=== PATIENT | male | born 1970 | race Caucasian/White ===

== ENCOUNTER 2017-05-17 11:52 | Emergency (ER) | payer OTHER ==
[~2017-05-17] VITALS: Ht 190.5 cm; Wt 85.3 kg
[~2017-05-17 11:52] MED LIST: BACTRIM DS TAB1 EACH PO; CLINDAMYCIN HC300 MG PO; DONNATAL E16.2 MG/5 PO; IBUPROFEN400 MG PO; IBUPROFEN600 MG PO; KEFLEX500 MG PO; NORCO 5-325 TA1 EACH PO
== END 2017-05-17 12:21 | disposition home or self-care (01) ==
LOC: ED 11:52
DX: Z00.8 Encounter for other general examination (principal)

== ENCOUNTER 2018-08-30 04:17 | Emergency (ER) | payer OTHER ==
[~2018-08-30] VITALS: Ht 190.5 cm; Wt 85.3 kg
[2018-08-30] MEDS ORDERED: TRAMADOL HCL50 MG PO (06:45)
== END 2018-08-30 06:55 | disposition home or self-care (01) ==
LOC: ED 04:17
DX: K74.60 Unspecified cirrhosis of liver (principal); I10 Essential (primary) hypertension; F17.200 Nicotine dependence, unspecified, uncomplicated
CPT/HCPCS: 74176; 80053; 81001; 85025; 96374; 96375; 99284-25; J1170; J1885; J2405; J7030

== ENCOUNTER 2018-09-10 17:49 | Inpatient (IN) | payer OTHER ==
[~2018-09-10] VITALS: Ht 190.5 cm; Wt 89.7 kg
[~2018-09-10 17:49] MED LIST changes: +TRAMADOL HCL50 MG PO
--- OUTSIDE RECORDS SUMMARY | 2018-09-10 17:52 | XMS ---
PreManage Notification: STONE DAVIS Security Contour Stitcher Events No recent Security Events currently on file CRITERIA MET - [facility] - 2 Visits in 30 Days CARE PROVIDERS There are no care providers on record at this time. Lashon has no Care Guidelines for this patient. [place] VISIT COUNT (12 MO.) [address] [facility] TOTAL 2 NOTE: Visits indicate total known visits. ED/C VISIT TRACKING (12 MO.) 09/10/2018 17:[address] [facility] [place] TYPE: Emergency COMPLAINT: - FACE/JAW SWELLING 08/30/2018 04:17 [facility] [place] TYPE: Emergency COMPLAINT: - BACK/FLANK PAIN DIAGNOSES: - Unspecified abdominal pain - Unspecified cirrhosis of liver - Nicotine dependence, unspecified, uncomplicated - Essential (primary) hypertension INPATIENT VISIT TRACKING (12 MO.) No inpatient visits to display in this time frame [email or web address]
--- NOTE | 2018-09-10 21:45 | NUR ---
PT ARRIVED VIA STRETCHER FROM ED. RR IS EVEN AND NONLABORED. RT SIDE OF FACE IS VISABLY SWOLLEN, HE DENIES TROUBLE BREATHING. HE IS TUCKED IN AND READY FOR A SANDWICH. CALL LIGHT IS CLOSE.
--- NOTE | 2018-09-10 22:49 | NUR ---
PT JUST FINISHED A SANDWICH AND DENIES NEEDS AT THIS TIME. HE WILL CALL WHEN HE NEEDS PAIN MEDS. CALL LIGHT IS CLOSE.
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
--- NOTE | 2018-09-11 00:27 | NUR ---
PT RESTING IN BED WATCHING TV, PT STATES THAT PREVIOUS PRN PAIN MEDICATION HAS HELPED WITH HIS PAIN, RATED 3/10, NO REQUESTS AT THIS TIME, IV FLUIDS/ABX INFUSING PER EMAR WNL, CALL LIGHT WITHIN REACH, FALL PRECAUTIONS IN PLACE.
--- NOTE | 2018-09-11 01:08 | NUR ---
PT RESTING IN BED, EYES CLOSED, BREATHS EVEN, UNLABORED, NO REQUESTS AT THIS TIME, IV FLUIDS INFUSING PER EMAR WNL, CALL LIGHT WITHIN REACH, FALL PRECAUTIONS IN PLACE.
--- NOTE | 2018-09-11 02:30 | NUR ---
PT RESTING IN BED, CURRENTLY RATES PAIN AT 3/10, DENIES NEED FOR PRN PAIN MEDICATION, NO REQUESTS AT THIS TIME, IV FLUIDS INFUSING PER EMAR WNL, CALL LIGHT WITHIN REACH.
--- NOTE | 2018-09-11 04:01 | NUR ---
PT RESTING IN BED, EYES CLOSED, BREATHS EVEN, UNLABORED, NO REQUESTS AT THIS TIME. CALL LIGHT WITHIN REACH. IV FLUIDS INFUSING PER EMAR WNL.
--- NOTE | 2018-09-11 05:25 | NUR ---
PT CONTINUES TO C/O 8/10 PAIN IN HIS RIGHT FACE, PT GIVEN 1MG PRN MORPHINE PER EMAR, WAS NOT ABLE TO DOCUMENT/SCAN DUE TO GENERATOR TEST, 2 RN VERIFICATION WITH STORES ASSISTANT LOLIS. PT TOLERATED WELL, WILL CONTINUE TO ASSESS.
--- NOTE | 2018-09-11 06:26 | NUR ---
PT RESTING IN BED, COLD COMPRESS PROVIDED, IV ABX/FLUIDS INFUSING PER EMAR, CALL LIGHT WITHIN REACH. FALL PRECAUTIONS IN PLACE.
--- NOTE | 2018-09-11 07:15 | NUR ---
BEDSIDE HANDOFF REPORT RECEIVED FROM SENIOR COST ESTIMATOR RN. PT RESTING IN BED. PT DENIES NEEDS AT THIS TIME.
--- NOTE | 2018-09-11 07:31 | NUR ---
PATIENT RESTING IN BED. PATIENT'S BREAKFAST ORDERED
--- NOTE | 2018-09-11 08:00 | NUR ---
PT RESTING IN BED. PT RATING PAIN 8/10 TO RIGHT FACE, FACE SWOLLEN AND REDDENED, PT PROVIDED 1 MG IV MOROPHINE AND 10 MG PO OXYCODONE, DISCUSSED PAIN MANAGEMENT WITH PT, PROVIDED WITH ICE PACK. IV VANCO INFUSING. PT ON ROOM AIR, LUNG SOUNDS CLEAR, DENIES SOB. PT COMPLAINT OF NUMBNESS TO FINGERS, HAS BEEDN PRESENT FOR SEVERAL DAYS. PT WITHOUT EDEMA. BOWEL TONES ACTIVE, TOLERATING REGULAR DIET, DISCUSSED FOOD CHOICES IF HE FEELS IT IS DIFFICULT TO SWALLOW. DISCUSSED PLAN OF CARE WITH PT. PT DENIES OTHER NEEDS AT THIS TIME. MD TO BEDSIDE.
--- NOTE | 2018-09-11 10:30 | NUR ---
PATIENT IN BATHROOM TAKING A SHOWER. LINENS CHANGED. PATIENT BACKS TO BED. VITAL SIGNS AND I&O DONE. CALL LIGHT WITHIN REACH. NO OTHER NEEDS AT THIS TIME
--- NOTE | 2018-09-11 11:20 | NUR ---
SPOKE WITH HARPREET FROM [employer]. SHE STATES PATIENT NOW HAS OHP INSURANCE. SPOKE WITH PATIENT IN ROOM. GAVE HIM HIS OHP POLICY NUMBER TO USE FOR PHARMACY OR APPOINTMENTS. PATIENT DENIES BARRIERS TO RETURNING HOME AT DISCHARGE. PATIENT DENIES QUESTIONS OR CONCERNS.
--- NOTE | 2018-09-11 12:32 | NUR ---
PT LAYING IN BED, TV OFF, RM QUIET. HE WELCOMED ME AND LET ME KNOW HE WAS PRETTY UNCOMFORTABLE. CELLULITIS VERY PROMINATE IN HIS RIGHT SIDE OF HIS FACE. PAIN IS BETTER NOW. PT REQUESTED PRAYER, WILL FOLLOW NEEDED
--- NOTE | 2018-09-11 13:10 | NUR ---
PT RESTING IN BED. PT RATING PAIN 8/10, REQUESTING PAIN MEDICATION, PROVIDED WITH SCHEDULED MOTRIN AND 10 MG OXYCODODNE. PT ON ROOM AIR, LUNG SOUNDS CLEAR. PT TOLERATING DIET, DENIES DIFFICULTY WITH SWALLOWING FOOD/LIQUIDS. NO ACUTE CHANGES. PT DENIES OTHER NEEDS AT THIS TIME.
--- NOTE | 2018-09-11 13:13 | NUR ---
PATIENT RESTING IN BED. VITAL SIGNS AND I&O DONE. CALL LIGHT WITHIN REACH. ICE WATER GIVEN. NO OTHER NEEDS AT THIS TIME
--- NOTE | 2018-09-11 15:36 | NUR ---
PT RATING PAIN 5/10, IMPROVING, SCHEDULED TYLENOL GIVEN. PT DENIES NEEDS AT THIS TIME.
--- NOTE | 2018-09-11 16:14 | NUR ---
PT REPORT OF FEELING COLD, PROVIDED WITH WARM BLANKET, ORAL TEMP 98.9. IV VANCO INFUSING PER ORDER. PT DENIES OTHER NEEDS. PT RATING PAIN 5/10, PLAN FOR PAIN REASSESSMENT AND PAIN MEDICATIONS AT 1700.
--- NOTE | 2018-09-11 17:19 | NUR ---
PATIENT SITTING UP IN BED TAKING DINNER. VITAL SIGNS AND I&O DONE. ICE WATER GIVEN. CALL LIGHT WITHIN REACH. NO OTHER NEEDS AT THIS TIME
--- NOTE | 2018-09-11 17:30 | NUR ---
PT REQUESTING PAIN MEDICATION, RATING PAIN 7/10, GIVEN 10 MG OXYCODONE. PT INDEPENDENT TO BATHROOM. VOIDING QS. PT DENIES OTHER NEEDS AT THIS TIME.
--- NOTE | 2018-09-11 17:53 | NUR ---
PT CONTINUES TO HAVE PAIN TO RIGHT SIDE OF FACE AND NECK, 10 MG OXYCODONE, TYLENOL, MOTRIN ADDED. SWELLING APPEARS TO BE IMPROVING. PT ON ROOM AIR, LUNG SOUNDS CLEAR. TOLERATING REGULAR DIET, ENCOURAGED TO ORDER SOFT FOODS IF CHEWING/SWALLOWING IS DIFFICULT, TOLERATING PO WELL. PT INDEPENDENT IN ROOM. IV VANCO AND CEFEPIME, LR AT 125ML/HR. VOIDING QS. MRSA SCREEN PENDING, R/O CONTACT PRECAUTIONS.
--- NOTE | 2018-09-11 19:45 | NUR ---
REPORT RECEIVED, PT RESTING IN BED, C/O 8/10 PAIN RELATED TO RIGHT FACE, DAY SHIFT RN STATES THAT THE PT RECENTLY RECEIVED PRN PAIN MEDICATION 2 HOURS AGO, ICE PACK SUPPLIED TO PT. DR. MARTINEZ CALLED CONCERNING PT'S PAIN MANAGEMENT, DR. MARTINEZ GAVE VERBAL ORDER TO UTILIZE MORPHINE ORDER FOR BREAK THROUGH PAIN, AND INSTRUCTED TO GIVE MORPHINE NOW. PT GIVEN 2MG MORPHINE RELATED TO PT'S 8 PAIN. TOLERATED WELL. NEW ICE WATER PROVIDED, NO FURTHER REQUESTS AT THIS TIME, CALL LIGHT WITHIN REACH.
--- NOTE | 2018-09-11 20:45 | NUR ---
DR. MARTINEZ IN ROOM TO SPEAK WITH PT, VERBAL ORDER RECEIVED FROM DR. MARTINEZ TO SALINE LOCK THE PT AND DC CONTINUOUS IV FLUIDS DUE TO PT'S GOOD ORAL INTAKE. NO FURTHER NEW ORDERS.
--- NOTE | 2018-09-11 21:54 | NUR ---
IN ROOM TO ADMIN EVENING MEDS, SHIFT ASSESSMENT COMPLETE, PT ON RA, PT CONTINUES TO C/O THROBBING IN RIGHT SIDE OF FACE, SWELLING NOTICED, LOOKS REDUCED FROM PREVIOUS NIGHT WELL REDUCED REDNESS. PT GIVEN PRN PAIN MEDICATION PER EMAR WNL, TOLERATED WELL, EDUCATION PROVIDED REGARDING PAIN MANAGEMENT AND MEDICATIONS, PT AGREEABLE TO POC, PUDDING AND CHELSEY CRACKERS PROVIDED PER PT'S REQUEST, NO FURTHER REQUESTS AT THIS TIME, IV SL, FALL PRECAUTIONS IN PLACE. CALL LIGHT WITHIN REACH.
--- NOTE | 2018-09-12 | NUR ---
PT RESTING IN BED, EYES CLOSED, BREATHS EVEN, NO REQUESTS AT THIS TIME, CALL LIGHT WITHIN REACH.
--- NOTE | 2018-09-12 02:09 | NUR ---
PT RESTING IN BED, PT GIVEN PRN PAIN MEDICATION FOR 5/10 PAIN RELATED TO RIGHT SIDE OF FACE, PT HAS COLD COMPRESS ON FACE WELL, NO C/O NAUSEA, NO FURTHER REQUESTS AT THIS TIME, CALL LIGHT WITHIN REACH, FALL PRECAUTIONS IN PLACE. IV ABX FINISHED INFUSING, IV SL.
--- NOTE | 2018-09-12 04:03 | NUR ---
PT RESTING IN BED, EYES CLOSED, BREATHS EVEN, UNLABORED, NO REQUESTS AT THIS TIME, CALL LIGHT WITHIN REACH. ON TELE #4, HR 70'S.
--- NOTE | 2018-09-12 04:46 | NUR ---
PT AOX4 THIS SHIFT, PAIN CONTROL HAS BEEN GOOD THIS SHIFT, PT'S PAIN 3-5, PRN OXYCODONE GIVEN X2 THIS SHIFT, PRN MORPHINE FOR BREAK THROUGH PAIN PER DR. MARTINEZ. IV SL, TOLERATING PO INTAKE WELL, COLD COMPRESS TO REDUCE SWELLING, SCHEDULED IBUPROFEN AND TYLENOL GIVEN PER EMAR, PT'S VSS, AFEBRILE, INDEPENDENT IN ROOM, URINE OUTPUT QS.
--- NOTE | 2018-09-12 06:34 | NUR ---
IN ROOM TO ADMIN SCHEDULED MEDS, PT C/O 11/04 PAIN RELATED TO RIGHT SIDE OF FACE, PT GIVEN 5MG OXYCODONE FOR PRN PAIN, PT EDUCATED REGARDING PAIN MANAGMENT, NO FURTHER REQUESTS AT THIS TIME, CALL LIGHT WITHIN REACH.
--- NOTE | 2018-09-12 06:55 | NUR ---
BEDSIDE HANDOFF REPORT RECEIVED FROM TUBE CLOSING MACHINE OPERATOR RN. PT RESTING IN BED. PT STATES PAIN IS OK. PT DENIES NEEDS AT THIS TIME.
--- NOTE | 2018-09-12 08:30 | NUR ---
PT RESTING IN BED. PT RATING PAIN 7/10 AT THIS TIME, DISCUSSED PAIN MANAGEMENT, PT REQUESTING TO WAIT UNTIL 1000 FOR 10 MG OXYCODONE. IV VANCO INFUSING TO R AC. SWELLING TO RIGHT FACE IMPROVED AROUND EYE, RIGHT LIP WITH OPEN CRUSTED WOUND, PT STATES IT IS DRAINING. PT CONTINUES TO REPORT NUMBNESS IN FINGERTIPS. CMS INTACT. PULSES PALPABLE. PT TOLERATING DIET. PT DENIES OTHER NEEDS AT THIS TIME.
--- NOTE | 2018-09-12 09:59 | NUR ---
PT RATING PAIN 6/10, GIVEN 10 MG OXYCODONE. PT DENIES OTHER NEEDS AT THIS TIME.
--- NOTE | 2018-09-12 14:15 | NUR ---
PT RESTING IN BED. NO ACUTE CHANGES. IV VANCO INFUSING. PT GIVEN 5 MG PO OXYCODONE, TYLENOL AND MOTRIN, PT RATING PAIN 5/10. PT DENIES OTHER NEEDS AT THIS TIME.
--- NOTE | 2018-09-12 17:56 | NUR ---
PT ON ROOM AIR, LUNG SOUNDS CLEAR. PLAN FOR I&D OF FACIAL ABCESS TOMORROW, NPO AT MIDNIGHT, CONSENT SIGNED AND IN CHART. PT INDEPENDENT IN ROOM. VANCO TROUGH 19.3, DOSE ADJUSTED, ANCEF, SALINE LOCKED. PT TOLERATING REG DIET. CONTACT FOR MRSA.
--- NOTE | 2018-09-12 18:34 | NUR ---
PT RATING PAIN 7/10, REQUESTING 10 MG OXYCODONE, GIVEN. DISCUSSED PLAN FOR SURGERY IN AM. PT DENIES OTHER NEEDS AT THIS TIME.
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
--- NOTE | 2018-09-12 19:05 | NUR ---
SHIFT REPORT RECEIVED AT BEDSIDE. PATIENT RESTING IN BED. APPLYING ICE TO RIGHT SIDE OF THE FACE. DENIES NEEDS AT THIS TIME.
--- NOTE | 2018-09-12 21:00 | NUR ---
PATIENT PROVIDED WITH EVENING MEDICATION. PATIENT REPORTS HIS PAIN MEDS "FINE", SCHEDULED TYLENOL AND MOTRIN PROVIDED. IV VANCO STARTED PER ORDER. THERE IS MINIMAL DRAINAGE FROM THE SWELLING ON THE RIGHT SIDE OF HIS FACE. PATIENT DENIES ANY NAUSEA. LUNGS ARE CLEAR. ABD SIFT, NONTENDER. PATIENT WOULD LIKE TO SHOWER FOLLOWING THIS, WHICH THE POLYSOMNOGRAPHIC TECH WILL ASSIST WITH.
--- NOTE | 2018-09-12 22:15 | NUR ---
OPERATIONS SPECIALIST ROUNDING NOTE. PT ABX FINISHED, PT SL SO THAT HE CAN TAKE SHOWER PER REQUEST. IV COVERED. PT DENIES FURTHER NEEDS. ALL SUPPLIES FOR SHOWER READY FOR PT USE IN BATHROOM. ENCOURAGED PT USE CALL LIGHT IF NEEDS ARISE.
--- NOTE | 2018-09-12 23:45 | NUR ---
PRN PAIN MEDS PROVIDED FOR 8/10 PAIN. PATIENT FINISHED HIS WATER, IS NO NPO FOR PROCEDURE. NO OTHER NEEDS AT THIS TIME.
--- NOTE | 2018-09-13 02:00 | NUR ---
PATIENT COMPLAINS OF PAIN IN IV SITE IN RIGHT AC. SITE IS RED BUT NOT SWOLLEN AND HAS GOOD BLOOD RETURN. NEW IV SITE PLACED BY MELQUIADES ALBERTS. IV ABX STARTED. PRN PAIN MEDS FOR 8/10 PAIN IN RIGHT SIDE OF FACE. MODERATE AMOUNT OF DRAINAGE NOTED. PATIENT HAS COLD COMPRESS.
--- NOTE | 2018-09-13 04:46 | NUR ---
PATIENT TOOK SHOWER. BED LINEN CHANGED.
--- NOTE | 2018-09-13 06:20 | NUR ---
PATIENT RECEIVED IV ABX THROUGHOUT THE NIGHT. PRN PAIN MEDS FOR RIGHT SIDE FACE PAIN. NPO SINCE MIDNIGHT FOR PROCEDURE THIS AM. SMALL TO MODERATE DRAINAGE FROM AREA, PATIENT HAS BEEN WIPING IT WITH A WASH CLOTH. IV SL. INDEPENDENT IN THE ROOM.
--- NOTE | 2018-09-13 07:42 | NUR ---
MORNING ASSESSMENT DONE, PATIENT IS RESTING IN BED. LR ON STRAIGHT TUBING AT BEDSIDE. PATIENT RATES RIGHT FACIAL PAIN 3/10 AND IS COMFORTABLE AT THIS TIME. PATIENT NPO FOR SURGERY. NO NAUSEA NOTED. CRUSTING NOTED AT RIGHT CORNER OF MOUTH, DRAINAGE NOT NOTED BUT PATIENT REPORTS OCCASIONAL DRAINAGE FROM THIS SITE. SCD'S ARE ON FOR SURGERY.
--- NOTE | 2018-09-13 07:48 | NUR ---
LR INFUSING AT 75 ML/HOUR DUE TO PATIENT BEING NPO. REVIEWED THIS WITH DR. ANNE. CALL TO PHARMACY REGARDING 0800 VANCO, AND THEY ARE AWAITING VANCO TROUGH RESULTS.
--- NOTE | 2018-09-13 08:05 | NUR ---
patient is NPO, checked on patient, he performed his own am care, will check back in with patient
--- NOTE | 2018-09-13 09:04 | NUR ---
PATIENT TO SURGERY AT 0860
--- NOTE | 2018-09-13 09:44 | NUR ---
09/13/18 0944 Vanessa Edwards 0925: PT ARRIVES TO PACU SLEEPY, RESPONDING TO STIMULI, BUT WON'T OPEN HIS EYES YET.
--- NOTE | 2018-09-13 10:18 | NUR ---
PATIENT RETURNED FROM SURGERY AT 1005, ABLE TO TRANSFER SELF TO BED. DRESSING INTACT TO RIGHT SIDE OF MOUTH WITH SEROUS DRAINAGE. LOCAL ANESTHETIC IN EFFECT. PATIENT RATES OVERALL DISCOMFORT 8/10 AND GIVEN 2MG OF IV MORPHINE. PATIENT IS SIPPING ON ICE WATER.
--- NOTE | 2018-09-13 12:02 | NUR ---
PATIENT SLEEPING WITH REGULAR RESPIRATIONS. PATIENT WAS ABLE TO EAT A LATE BREAKFAST AND LUNCH.
--- NOTE | 2018-09-13 13:11 | NUR ---
PATIENT UP TO VOID, IS SALINE LOCKED. CALL TO DR. ANNE REGNICHOLASING SATURATED DRESSING. OUTER DRESSING REMOVED, PACKING LEFT IN PLACE, DR. MARTINEZ IN TO VISULIZE SURGICAL SITE. PLAN TO REPLACE OUTER GUAZE AND TAPE. PATIENT REPORTS PAIN IN 6/10 AND FEELS THAT ORDERED PAIN MEDICATIONS ARE ADEQUATE.
--- NOTE | 2018-09-13 15:06 | NUR ---
PATIENT GIVEN 1000MG OF TYLENOL AND 10MG OF OXYCODONE FOR 6/10 PAIN. APPETITE IS EXCELLENT. GUAZE DRESSING REAPPLIED TO RIGHT FACE.
--- NOTE | 2018-09-13 15:21 | NUR ---
PATIENT HAS HAD SURGERY TODAY, OFF FLOOR FOR ONE HOUR AND THEN RETURNED. APPETITE IS GOOD, NO NAUSEA. PAIN IS CONTROLLED WITH IV AND PO MEDS. RIGHT LIP INCISION HAS PACKING, COVERED WITH NON-STICK GUAZE AND LOOSLY TAPED TO CHEEK. PATIENT CONTINUES TO BE STANDBY ASSIST TO BATHROOM.
--- NOTE | 2018-09-13 17:11 | NUR ---
PATIENT IS SLEEPING WITH REGULAR RESPIRATIONS.
--- NOTE | 2018-09-13 19:12 | NUR ---
CHARGE NURSE REPORT RECEIVED FROM DAVID. PT IN BED, PT DAY PRIMARY NURSE IN ROOM, ADDRESSING THE DRESSING ON LEFT FACE.
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
--- NOTE | 2018-09-13 19:20 | NUR ---
SHIFT REPORT RECEIVED AT BEDSIDE. PATIENT RECEIVED PRN PAIN MEDS AT THIS TIME FROM DAYSHIFT RN. WOUND PACKING IN PLACE, SMALL AMOUNT OF DRAINAGE NOTED. PATIENT REQUESTING IV IN RIGHT AC BE REMOVED, THIS IS HIS SECOND IV SITE. WILL REMOVE UPON ASSESSMENT.
--- NOTE | 2018-09-13 22:30 | NUR ---
PATIENT REPORTS DIFFICULTY RESTING DUE TO 9/[address] MARTINEZ[address] RECEIVED ORDERS FOR BREAK THROUGH PAIN MEDICATION AND VERIFIED VIA REPEAT BACK METHOD. PROVIDED PRN MORPHINE TO PATIENT, WHO APPEARS RESTLESS AND HAS BEEN UNABLE TO REST. PATIENT HAS BEEN APPLYING ICE TO AFFECTED AREA.
--- NOTE | 2018-09-13 23:02 | NUR ---
V/S AND I&O DONE AND CHARTED. ICE PACK PROVIDED.
--- NOTE | 2018-09-13 23:50 | NUR ---
PRN OXY PROVIDED FOR 8/10 PAIN. PATIENT REPORTS PAIN IS CONSTANT AND THROBBING. ICE PACK APPLIED TO AREA, MODERATE AMOUNT OF DRAINAGE NOTED. PATIENT REPORTS ITCHING ON HIS ARMS AND ANKLES. HIVES/RASH APPEAR UNCHANGED FROM PREVIOUS OBSERVATION. BENADRYL CREAM NOT AVAILABLE UNTIL PHARMACY ARRIVES IN THE AM.
--- NOTE | 2018-09-14 00:33 | NUR ---
PATIENT APPEARS TO BE SLEEPING SOUNDLY AT THIS TIME. RR 18. CALL LIGHT IN HAND.
--- NOTE | 2018-09-14 03:30 | NUR ---
PATIENT APPEARS TO BE SLEEPING SOUNDLY. RR 16. CALL LIGHT IN REACH
--- NOTE | 2018-09-14 05:15 | NUR ---
PRN OXY PROVIDED FOR PAIN 04/06. PATIENT CONTINUES TO ITCH, MOSTLY ON HIS BACK. PRN BENADRYL GIVEN. WILL RETURN TO REMOVE PACKING AND SET UP FOR SHOWER ONCE MEDS HAVE TAKEN EFFECTS.
--- NOTE | 2018-09-14 06:00 | NUR ---
PACKING REMOVED WITHOUT CONCERN. PATIENT TOLERATED WELL. PATIENT WILL NOW SHOWER AND CALL WHEN HE IS DONE FOR FURTHER ASSESSMENT.
--- NOTE | 2018-09-14 06:43 | NUR ---
PATIENT HAS A FULL BODY RASH, POSSIBLY FROM THE ABX. MD NOTIFED AND PATIENT NOW ON ORAL ABX. PRN BENADRYL. PATIENT CONTINUES TO BE ITCHY. PRN OXY X3 AND MORPHINE X1 FOR BREAK THROUGH PAIN. ICE TO AFFECTED AREA. PACKING REMOVED PER ORDER, PATIENT SHOWERED THIS AM. TOLERATING REGULAR DIET. INDEPENDENT IN ROOM.
--- NOTE | 2018-09-14 06:58 | OR ---
[facility] [address] [place], [place] [address] Signed DATE OF OPERATION: 09/13/2018 SURGEON: Mary Perez MD PREOPERATIVE DIAGNOSES: 1. Right facial abscess. 2. Cracked right lateral upper lip. POSTOPERATIVE DIAGNOSES: 1. Right facial abscess. 2. Cracked right lateral upper lip. PROCEDURE: 1. Incision and drainage right facial abscess. 2. Deep wound cultures. ESTIMATED BLOOD LOSS: None. FINDINGS: Stone's right lateral upper lip is cracked and pus was coming through that area and he has a 3 cm area of induration and swelling on his right face at the corner and upper portion of his right upper lip. INDICATIONS: Stone is a 47-year-old gentleman, who apparently is unemployed and most likely homeless. He sounds like he spent some time living with his brother, Azar. Three days prior to come to the hospital, he had increased right facial swelling. Apparently, he went through this previously and that responded to antibiotics. On this occasion, he was on Ancef and vancomycin. 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 He had some improvement. It was pretty clear, though he had a 3 cm area, it was quite swollen, indurated and tender that was not resolving and there was some pus coming through a crack on his right upper lateral lip. I was therefore asked to see him as a general surgeon on-call. I met with Stone yesterday, but he unfortunate ate already breakfast. I explained to Stone we would go ahead and do this 1st thing in the morning. We could make an incision along the vermilion border and into the abscess cavity and evacuate that and pack that with some gauze and that would help resolve this abscess along with his Ancef and vancomycin. I had reviewed the surgery with him in detail. He understands its risks including, but not limited to bleeding, infection, scarring, change in contour of the skin as well as recurrent abscess in the same or Portions of this report were created using voice recognition software. There may be inadvertent computer error. Please read with context in mind. If there are any questions, please contact me. Electronically Signed By: MARY PEREZ MD 09/14/18 0658 PATIENT NAME: STONE DAVIS OPERATIVE REPORT DATE OF : 72 REPORT #: [id number] PHYSICIAN: MARY PEREZ MD PCP: NO PRIMARY CARE PHYSICIAN REPORT IS CONFIDENTIAL AND NOT TO BE RELEASED WITHOUT AUTHORIZATION [facility] [address] [place], [place] [address] Signed other locations. He had expressed understanding wished to proceed. PROCEDURE NOTE: Stone was taken into the operating room and placed in the supine position under general endotracheal tube anesthesia. It was very clear the abscess cavity and swelling on his right face. He was already on preoperative antibiotics. SCDs were utilized. He was then prepped and draped in the usual sterile fashion. We had used our clippers to cut back the hair just a little bit on the right lateral upper lip. We could easily express some pus through an opening in his lip. We used the cautery to compute the vermilion border about a centimeter in length and we were able to enter the abscess cavity quite easily. Deep cultures were taken and after this, the wound was copiously irrigated with warm antibiotic saline solution. Local anesthetic was then injected into the subcutaneous tissues without epinephrine. We then used one-half inch NuGauze soaked in full strength Dakin's solution. This was then covered with a simple 2 x 2 dry gauze and some tape. Osmar was then awakened from his anesthesia, extubated in the OR, and taken to recovery room in stable condition. Mary Perez MD ALB/MODL /[id number] cc: Mary Perez MD Copies: MARY PEREZ MD ~ Portions of this report were created using voice recognition software. There may be inadvertent computer error. Please read with context in mind. If there are any questions, please contact me. Electronically Signed By: MARY PEREZ MD 09/14/18 0658 PATIENT NAME: STONE DAVIS OPERATIVE REPORT DATE OF : 72 REPORT #: [id number] PHYSICIAN: MARY PEREZ MD PCP: NO PRIMARY CARE PHYSICIAN REPORT IS CONFIDENTIAL AND NOT TO BE RELEASED WITHOUT AUTHORIZATION
--- NOTE | 2018-09-14 07:54 | NUR ---
RECIEVED BEDSIDE REPORT FROM ARISTEO NOLAN. PT AWAKE AND ALERT IN BED. PT HAS CANISTER OF ICE WATER ON TABLE FOR COLD COMPRESS TO FACE, WHICH IS EFFECTIVE. WOUND UNCOVERED D/T PLACEMENT OF WOUND. PT IS HUNGRY, BREAKFAST IS ENROUTE. PT HAS RED RASH ON BODY, PT STATES IT IS NOT ITCHY AT THIS TIME.
--- NOTE | 2018-09-14 08:45 | NUR ---
PT GIVEN MORNING MEDS AND NEW ICE WATER. PT FINISHING BREAKFAST. STATES HE HAD HIS SHOWER ALREADY. TAPED SMALL SQUARE OF GAUZE TO SITE. PT DENIES FURTHER CONCERNS. WOUND STILL DRAINING SMALL AMT LIGHT RED
--- NOTE | 2018-09-14 09:31 | NUR ---
PATIENT IN BED WATCHING TV. VITAL SIGNS AND I&O DONE. CALL LIGHT WITHIN REACH. NO OTHER NEEDS AT THIS TIME
--- NOTE | 2018-09-14 10:48 | NUR ---
CALLED DOWN AND ORDERED LUNCH FOR PT. ADMINISTERED PRN PAIN MEDICATIONS FOR 8\10 PAIN
--- NOTE | 2018-09-14 12:31 | NUR ---
PT WAS SITTING UP IN BED, WATCHING TV. HE HAD A SMALL GAUZE PAD ON R. SIDE OF LIP. PT STATED THAT LIP HAD BEEN LANCED AND DRAINED YESTERDAY. FEELING BETTER BUT STILL FEELING A NEED TO NAP. HE STATED THIS, PT'S EYES ROLLED TO THE BACK OF HIS HEAD. WILL SHARE WITH RN. WILL CONTINUE TO FOLLOW NEEDED
--- NOTE | 2018-09-14 12:38 | NUR ---
PT RESTING IN BED. DENIES CONCERNS.
--- NOTE | 2018-09-14 13:10 | NUR ---
PATIENT RESTING IN BED. VITAL SIGNS AND I&O DONE. PATIENT IS WORRIED BECAUSE HE HAS A RASH IN HIS ARMS, CHEST AND STOMACH AND FEELS ITCHY. RN NOTIFIED. CALL LIGHT WITHIN REACH. NO OTHER NEEDS AT THIS TIME
--- NOTE | 2018-09-14 15:20 | NUR ---
PT RESTING IN BD AND HAD TO BE AWOKEN FOR PAIN MEDICATIONS. REFILLED WATER CUP. CHANGED GAUZE ON WOUND AGAIN. SATURATED WITH PINK DRAINAGE.
--- NOTE | 2018-09-14 17:46 | NUR ---
PT FINISHING DINNNER WATCHING TV. PT RATES PAIN 02/03. GIVEN SCHEDULED MED. REFILLED WATER. DENIES CONCERNS.
--- NOTE | 2018-09-14 18:09 | NUR ---
PATIENT SITTING UP IN BED WATCHING TV. VITAL SIGNS AND I&O DONE. CALL LIGHT WITHIN REACH. NO OTHER NEEDS AT THIS TIME
--- NOTE | 2018-09-14 19:00 | NUR ---
CHARGE ROUNDING DONE. OBSERVED PATIENT'S RASH WHICH HE REPORTS WORSE THAN PREVIOUS. WILL SPEAK WITH PRIMARY RN. PATIENT DENIED NEEDS AT THIS TIME.
--- NOTE | 2018-09-14 20:15 | NUR ---
IN TO DO ASSESSMENT. PT C/O PAIN 8/10 IN RIGHT UPPER LIP, WILL GIVE PAIN MED. GAUZE ON LIP, FRESHLY APPLIED, NO DRAINAGE AT THIS TIME. PT REQUESTS SNACK, PROVIDED. RASH ALL OVER BODY NOTED, BENADRYL CREAM APPLIED.
--- NOTE | 2018-09-14 21:45 | NUR ---
PT AWAKE IN BED WATCHING TV, DENIES NEEDS, PAIN DOWN TO 5/10.
--- NOTE | 2018-09-15 | NUR ---
PT RESTING WITH EYES CLOSED, RESP EVEN AND UNLABORED.
--- NOTE | 2018-09-15 02:14 | NUR ---
IN TO CHECK ON PT, HE WAKES EASILY AND RATES PAIN 7/10 IN RIGHT LIP AREA. GAUZE CHANGED, OXYCODONE 15MG GIVEN. NO OTHER REQUESTS, VSS.
--- NOTE | 2018-09-15 04:00 | NUR ---
PT APPEARS RESTFUL, RESP EVEN AND UNLABORED EYES CLOSED.
--- NOTE | 2018-09-15 06:15 | NUR ---
PT AWAKE IN BED. GAUZE DRESSING CHANGED, SLIGHTLY SAT WITH DRAINAGE. BREAKFAST ORDERED, DENIES FURTHER NEEDS.
--- NOTE | 2018-09-15 07:40 | NUR ---
PATIENT SITTING UP IN BED. SETS UP BATHROOM FOR SHOWER. PATIENT TAKES A SHOWER. INDEPENDENT. PATIENT BACKS TO BED. CALL LIGHT WITHIN REACH. NO OTHER NEEDS AT THIS TIME
--- NOTE | 2018-09-15 08:33 | NUR ---
PT RESTING IN BED EATING BREAKFAST. HE STATES HIS FACE AND LIP HAVE PAIN RATED AT A 7 AND HE DENIES ANY OTHER PROBLMES.
--- NOTE | 2018-09-15 09:26 | NUR ---
PATIENT SITTING UP IN BED WATCHING TV. VITAL SIGNS AND I&O DONE. CALL LIGHT WITHIN REACH. NO OTHER NEEDS AT THIS TIME
[2018-09-15] MEDS ORDERED: DOXYCYCLINE HY100 MG PO (09:57)
[2018-09-15] MEDS ORDERED: OXYCODONE HCL10 MG PO (09:58)
[2018-09-15] MEDS ORDERED: DICLOFENAC POTA50 MG PO (09:59)
[2018-09-15] MEDS ORDERED: SENNA8.6 MG PO (10:00)
[2018-09-15] MEDS ORDERED: ACETAMINOPHEN500 MG PO (10:02)
--- NOTE | 2018-09-15 11:11 | NUR ---
PT SITTING UP IN BED, TV ON AND ENVELOPE STUFFER KALANI IN DOING VS. SWELLING DOWN CONSIDERABLY, PT SAID IT IS SOMETIMES HARD TO CHEW. WE JOKED ABOUT JUST HAVING ICE CREAM! PT MAY DC TODAY, EXTENDED A BLESSING, WILL FOLLOW NEEDED
--- NOTE | 2018-09-15 11:56 | NUR ---
DISCHARGE INSTRUCTIONS GIVEN TO THE PT WITH GOOD UNDERSTANDING STATED. INSTUCTIONS INCLUDE FOLLOW UP APPOINTMENTS WITH TREVOR FR[facility]ER[facility] AND DR ANNE. S/S OF WHEN TO CALL HIS MD AND INFROMATION ON HIS MEDICATIONS GIVEN. IV IN HIS LEFT FA DC'D WITH THE TIP INTACT. PT STATES HE IS TAKING A TAXI HOME AND IS NOW AWAITING THAT RIDE.
== END 2018-09-15 12:10 | disposition home or self-care (01) | DRG 854 ==
LOC: ED 17:49 → MS 21:20
PROVIDERS: Colon & Rectal Surgery; ADMIT Student in an Organized Health Care Education/Training Program
PROC: 0J910ZZ Drainage of Face Subcutaneous Tissue and Fascia, Open Approach (ICD-10-PCS; principal; 2018-09-13 09:00)
DX: A41.02 Sepsis due to Methicillin resistant Staphylococcus aureus (principal); L03.211 Cellulitis of face; L02.01 Cutaneous abscess of face; F17.210 Nicotine dependence, cigarettes, uncomplicated; L27.0 Generalized skin eruption due to drugs and medicaments taken internally; T36.1X5A Adverse effect of cephalosporins and other beta-lactam antibiotics, initial encounter; Y92.239 Unspecified place in hospital as the place of occurrence of the external cause; Z86.19 Personal history of other infectious and parasitic diseases
CPT/HCPCS: 00300; 36415; 70487; 71046; 80048; 80053; 80202; 83605; 83735; 84100; 85025; 86060; 87040; 87070; 87075; 87077; 87186; 87205; 87502; 99284-25; 99406; J0330; J0690; J1885; J2270; J2405; J2704; J2765; J3010; J3370; J7030; J7120; Q9967

== ENCOUNTER 2019-04-28 01:37 | Emergency (ER) | payer OTHER ==
[~2019-04-28] VITALS: Ht 190.5 cm; Wt 90.9 kg
--- OUTSIDE RECORDS SUMMARY | ~2019-04-28 | XMS | Clinical Summary ---
Demographics + + + | Address | [address] | | | [place] [address] | + + + | Home Phone | | + + + | Preferred Language | Unknown | + + + | Marital Status | Single | + + + | Cheondoism Affiliation | Unknown | + + + | Race | Unknown | + + + | Ethnic Group | Unknown | + + + Author + + + | Author | [facility] | | | and [place] | + + + | Organization | [facility] | | | and [place] | + + + | Address | Unknown | + + + | Phone | Unavailable | + + + Care Team Providers + +------+ + | Care Tool Liaison Name | Role | Phone | + +------+ + | Melissa Bergman RN | PCP | Unavailable | + +------+ + Allergies No Known Allergies Medications + + + +---------+------+------+-------+ | Medication | Sig | Dispensed | Refills | Star | End | Statu | | | | | | t | Date | s | | | | | | Date | | | + + + +---------+------+------+-------+ | sodium | Take 177 mLs by | 1 kit | 0 | 09/0 | | Activ | | sulfate-potassium | mouth every 12 | | | 02/13 | | e | | sulfate-magnesium | hours. Drink one | | | 16 | | | | sulfate (SUPREP | bottle at 4PM day | | | | | | | BOWEL PREP) oral | prior to procedure | | | | | | | solution | and 2ND bottle at | | | | | | | | 6AM day of | | | | | | | | procedure. | | | | | | + + + +---------+------+------+-------+ | ondansetron | Take 1 tablet by | 2 | 0 | 09/0 | | Activ | | (ZOFRAN) 4 mg tablet | mouth as needed for | tablet | | 720 | | e | | | Nausea. Begin bowel | | | 16 | | | | | prep, if nausea, | | | | | | | | stop prep, take med | | | | | | | | and restart prep 1 | | | | | | | | hr later. | | | | | | + + + +---------+------+------+-------+ Active Problems + + + | Problem | Noted Date | + + + | Chronic hepatitis C without hepatic coma | 04/04/2016 | + + + | Abdominal pain, left lower quadrant | 04/04/2016 | + + + | Family history of cancer | 04/04/2016 | + + + | Diarrhea | 04/04/2016 | + + + Family History + + +------+ + | Medical History | Relation | Name | Comments | + + +------+ + | Heart attack | Father | | | + + +------+ + | Diabetes, IDDM | Mother | | | + + +------+ + + +------+ + + | Relation | Name | Status | Comments | + +------+ + + | Father | | Alive | | + +------+ + + | Mother | | Alive | | + +------+ + + | Paternal Aunt | | | cancer | | | | (Age | | | | | 64) | | + +------+ + + Social History + +-------+ +--------+------+ | Tobacco Use | Types | Packs/Day | Years | Date | | | | | Used | | + +-------+ +--------+------+ | Current Some Day | | | | | | Smoker | | | | | + +-------+ +--------+------+ + +---+---+---+ | Smokeless Tobacco: | | | | | Never Used | | | | + +---+---+---+ + + | Tobacco Cessation: Ready to Quit: No; Counseling Given: Yes | + + + + +---------+ + | Alcohol Use | Drinks/We | oz/Week | Comments | | | ek | | | + + +---------+ + | Yes | 0 | 0.0 | social | | | Standard | | | | | drinks or | | | | | | | | | | equivalen | | | | | t | | | + + +---------+ + + + + | Sex Assigned at | Date Recorded | | | | + + + | Not on file | | + + + + + + + | Job Start Date | Occupation | Industry | + + + + | Not on file | Not on file | Not on file | + + + + + + + + | Travel History | Travel Start | Travel End | + + + + + + | No recent travel history available. | + + Last Filed Vital Signs + + + + | Vital Sign | Reading | Time Taken | + + + + | Blood Pressure | 140/70 | 04/03/2016899 PDT | + + + + | Pulse | 78 | 04/03/2016899 PDT | + + + + | Temperature | 36.7 C (98 F) | 04/03/2016899 PDT | + + + + | Respiratory Rate | 16 | 04/03/2016899 PDT | + + + + | Oxygen Saturation | 96% | 04/03/2016899 PDT | + + + + | Inhaled Oxygen | - | - | | Concentration | | | + + + + | Weight | 92.5 kg (204 lb) | 04/03/2016899 PDT | + + + + | Height | 190.5 cm (6' 3") | 04/03/2016899 PDT | + + + + | Body Mass Index | 25.5 | 04/03/2016899 PDT | + + + + Plan of Treatment + + + + + | Health Maintenance | Due Date | Last Done | Comments | + + + + + | Vaccine: | | | | | Dtap/Tdap/Td (1 - | 1 | | | | Tdap) | | | | + + + + + | Vaccine: Influenza | | | | | (#1) | 9 | | | + + + + + Results Not on filefrom Last 3 Months Advance Directives Patient has advance care planning documents on file. For more information, please contact:Robi [facility] [place] [address]
--- OUTSIDE RECORDS SUMMARY | ~2019-04-28 | XMS | Clinical Summary ---
Demographics + + + | Address | [address] | | | [place] [address] | + + + | Home Phone | | + + + | Preferred Language | Unknown | + + + | Marital Status | Single | + + + | Bahai Affiliation | Unknown | + + + | Race | Unknown | + + + | Ethnic Group | Unknown | + + + Author + + + | Author | [facility] | | | and [place] | + + + | Organization | [facility] | | | and [place] | + + + | Address | Unknown | + + + | Phone | Unavailable | + + + Care Team Providers + +------+ + | Care Hob Machine Operator Name | Role | Phone | + [...] on file. For more information, please contact:Robi [facility] [place] [address]
[~2019-04-28 01:37] MED LIST changes: +ACETAMINOPHEN500 MG PO; +DICLOFENAC POTA50 MG PO; +DOXYCYCLINE HY100 MG PO; +OXYCODONE HCL10 MG PO; +SENNA8.6 MG PO
[2019-04-28] MEDS ORDERED: CEPHALEXIN500 MG PO (02:27)
[2019-04-28] MEDS ORDERED: NORCO 5-325 TA1 EACH PO (02:27)
[2019-04-28] MEDS ORDERED: BACTRIM DS TAB1 EACH PO (02:27)
== END 2019-04-28 02:41 | disposition home or self-care (01) ==
LOC: ED 01:37
DX: L03.116 Cellulitis of left lower limb (principal); I10 Essential (primary) hypertension; F17.200 Nicotine dependence, unspecified, uncomplicated
CPT/HCPCS: 73590; 90471; 90715; 99283-25

== ENCOUNTER 2020-08-17 19:15 | Emergency (ER) | payer OTHER ==
[~2020-08-17] VITALS: Ht 190.5 cm; Wt 90.7 kg
[~2020-08-17 19:15] MED LIST changes: +CEPHALEXIN500 MG PO
--- OUTSIDE RECORDS SUMMARY | 2020-08-17 19:18 | XMS ---
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 Lashon has no Care Guidelines for this patient. Care History Medical/Surgical 03/27/2020 [facility] CALLED PATIENT AT NUMBER LISTED-PATIENT SISTER ANSWERED THE PHONE AND STATED HER BROTHER (PATIENT) IS NO LONGER IN THE AREA. E.D. VISIT COUNT (12 MO.) 2 [facility] TOTAL 2 NOTE: Visits indicate total known visits. ED/C VISIT TRACKING (12 MO.) 08/17/2020 19:16 [facility] [place] TYPE: Emergency COMPLAINT: - FEVER,WEAKNESS 03/25/2020 23:59 [facility] [place] TYPE: Emergency COMPLAINT: - CHIN PAIN DIAGNOSES: - Essential (primary) hypertension - Other rn long term care (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 - Cutaneous abscess of face - Nicotine dependence, unspecified, uncomplicated INPATIENT VISIT TRACKING (12 MO.) No inpatient visits to display in this time frame [email or web address]
[2020-08-17] MEDS ORDERED: CEPHALEXIN500 MG PO (23:32)
== END 2020-08-18 00:25 | disposition home or self-care (01) ==
LOC: ED 19:15
DX: N39.0 Urinary tract infection, site not specified (principal); I10 Essential (primary) hypertension; F17.200 Nicotine dependence, unspecified, uncomplicated; Z20.822 Contact with and (suspected) exposure to COVID-19
CPT/HCPCS: 71045; 80053; 81001; 83605; 85025; 96365; 99285-25; C9803; J0696; J7030; U0003

== ENCOUNTER 2020-11-10 14:35 | Inpatient (IN) | payer OTHER ==
[~2020-11-10] VITALS: Ht 190.5 cm; Wt 100.9 kg
--- OUTSIDE RECORDS SUMMARY | 2020-11-10 14:38 | XMS ---
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 Lashon has no Care Guidelines for this patient. Care History Medical/Surgical 03/27/2020 [facility] CALLED PATIENT AT NUMBER LISTED-PATIENT SISTER ANSWERED THE PHONE AND STATED HER BROTHER (PATIENT) IS NO LONGER IN THE AREA. E.D. VISIT COUNT (12 MO.) 3 [facility] TOTAL 3 NOTE: Visits indicate total known visits. ED/C VISIT TRACKING (12 MO.) 11/10/2020 14:36 [facility] [place] TYPE: Emergency COMPLAINT: - BLOODY STOOL 08/17/2020 19:[address] [facility] [place] TYPE: Emergency COMPLAINT: - FEVER,WEAKNESS DIAGNOSES: - Fever, unspecified - Essential (primary) hypertension - Urinary tract infection, site not specified - Nicotine dependence, unspecified, uncomplicated 03/25/2020 23:59 [facility] [place] TYPE: Emergency COMPLAINT: - CHIN PAIN DIAGNOSES: - Essential (primary) hypertension - Other senior living (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 - Cutaneous abscess of face - Nicotine dependence, unspecified, uncomplicated INPATIENT VISIT TRACKING (12 MO.) No inpatient visits to display in this time frame [email or web address]
--- NOTE | 2020-11-10 16:15 | EKG ---
[facility] [address] [facility] [place], [place] [address] Signed Sinus tachycardia Otherwise normal ECG No previous ECGs available Confirmed by BERE ROMERO MD ([id number]) on 11/10/2020 4:14:53 PM Electronically Signed By: BERE ROMERO MD 11/10/20 1615 PATIENT NAME: STONE DAVIS Electrocardiogram DATE OF : 72 PHYSICIAN: BERE ROMERO MD REPORT #: [id number] REPORT IS CONFIDENTIAL AND NOT TO BE RELEASED WITHOUT AUTHORIZATION
--- NOTE | 2020-11-10 18:00 | NUR ---
Patient arrives to unit via stretcher, restless and thrashing around in bed. Patient muttering and making comments which are incomprehensible. Patient able to transfer to hospital bed independently with nursing staff verbal commands. Patient continues to flail around hospital bed and therapeutic communication is used. Blood is infusing currently. LR hung and infusing at 125 mls/hr. Patient given 5mg of IV valium prn and 5mg of IV haldol prn. Vital signs taken. After several minutes patient falls asleep, respirations even and unlabored, SpO2 of 100%. Security in room at this time. This RN remains in room.
--- NOTE | 2020-11-10 19:05 | NUR ---
Third unit of blood finished infusing. Vital signs taken. Patient continues to sleep in bed, respirations even and unlabored. Fourth unit of blood initiated, this RN to remain in room for 15 minutes. LR infusing at 125 mls/hr, along with IV thiamine.
--- NOTE | 2020-11-10 19:35 | NUR ---
REPORT RECEIVED FROM GABE ALBERTS. PT LAYING IN BED RESTING AND MEDICATED. PT WAKES WITH STIMULATION AND IS INCOMPREHENSIBLE AND RESTLESS BUT GOES BACK TO SLEEP QUICKLY. PT CURRENTLY RECEIVING ORDERED IV FLUIDS AT ORDERED RATE (SEE MAR). PT ALSO RECEIVING 4TH UNIT OF BLOOD AT THIS TIME. PT IN NO APPARENT DISTRESS AT THIS TIME, AND ON ROOM AIR. BED IN LOWEST POSITION, CALL LIGHT IN REACH, WILL CONTINUE PLAN OF CARE.
--- NOTE | 2020-11-10 20:20 | NUR ---
THIS RN IN TO ASSESS PT AND ADMINISTER ORDERED MEDICATIONS. PT HAD JUST FINISHED VOIDING INTO THE URINAL AND HAD PERICARE DONE DUE TO AN INCONTINENT VOID BY RN LAMBERT. PT WAS INITIALLY AWAKE, RESTLESS, AND HAD INCOHERENT SPEECH/MUMBLING. PT WAS ABLE TO ANSWER "IM DOING WELL" WHEN ASKED HOW HE FELT BUT WENT BACK TO SLEEP SHORTLY AFTER. SCHEDULED IV VALIUM AND PROTONIX ADMINISTERED AT THIS TIME (SEE MAR). PT THEN ASSESSED, BLOOD INFUSING AT THIS TIME, ORDERED THIAMINE/IVF INFUSING ORDERED. PT IN NO APPARENT DISTRESS AT THIS TIME AND IS NOW SLEEPING/SNORING. SPO2 AT 100% ON ROOM AIR. BED IN LOWEST POSTION, CALL LIGHT IN REACH, BED ALARM ON, WILL CONTINUE PLAN OF CARE.
--- NOTE | 2020-11-10 22:05 | NUR ---
THIS RN IN DUE TO IV PUMP ALARMING. PT LAYING IN BED SLEEPING, PRBC'S FINISHED INFUSING. PT AWAKES BRIEFLY TO PHYSICAL STIMULI SUCH REPOSITIONING BLANKETS AND HANDLING IV BUT RETURNS TO SLEEP QUICKLY. PT NOW SALINE LOCKED, SPO2 AT 100%, PT IN NO APPARENT DISTRESS AT THIS TIME, WILL CONTINUE PLAN OF CARE. BED IN LOWEST POSITION, BED ALARM ON.
--- NOTE | 2020-11-10 22:47 | NUR ---
THIS RN IN TO CHECK ON PT, PT WAS MUMBLING IN ROOM AND NODDING HIS HEAD. PT STATED HE NEEDED TO VOID, PT WAS INCONTINENT OF URINE BUT WAS ABLE TO VOID WITH HELP INTO THE URINAL. PT WAS GIVEN A PRN DOSE OF IV VALIUM ORDERED DUE TO CIWA OVER 8 FROM RESTLESSNESS, CONFUSION, AND ANXIETY. PT NOW LAYING IN BED PERICARE DONE, NEW PADS AND GOWN IN PLACE. IVF INFUSING ORDERED, PT IN NO APPARENT DISTRESS, BED IN LOWEST POSITION, BED ALARM ON, WILL CONTINUE PLAN OF CARE.
--- NOTE | 2020-11-11 00:29 | NUR ---
PT BECOMING AGITATED. ASSISTED HIM TO USE URINAL, VOIDED 275ML. NEW CHUX PLACED UNDERNEATH PT. AFTERWARD, CIWA:9 AND PRN VALIUM GIVEN.
--- NOTE | 2020-11-11 01:31 | NUR ---
THIS RN IN TO ASSESS PT. PT LAYING IN BED SLEEPING BUT AWAKES BRIEFLY AND MUMBLES WHEN TOUCHED. PT IN NO APPARENT DISTRESS AT THIS TIME. SPO2 AT 100% ON ROOM AIR. NO APPARENT NEEDS NOTED AT THIS TIME, WILL CONTINUE PLAN OF CARE. CALL LIGHT IN REACH, BED IN LOWEST POSITION, BED ALARM ON, IVF INFUSING ORDERED.
--- NOTE | 2020-11-11 02:14 | NUR ---
THIS RN IN TO ADMINISTER SCHEDULED VALIUM VIA IV. PT NOTED TO BE LAYING IN BED RESTLESS/AGITATED WITH HIS EYES CLOSED AND TALKING TO HIMSELF, PT ALSO NOTED TO HAVE SOME SWEAT ON HIS HEAD/HAIR AT THIS TIME. SCHEDULED VALIUM ADMINISTERED IV AT THIS TIME. PT NOW LAYING IN BED AND IS CALM/SLEEPING AND IN NO APPARENT DISTRESS. WILL CONTINUE PLAN OF CARE. BED IN LOWEST POSITION, BED ALARM ON, IVF INFUSING ORDERED, SPO2 AT 100% ON ROOM AIR.
--- NOTE | 2020-11-11 03:17 | NUR ---
PT BECOMING RESTLESS AND AGITATED AND MUMBLING TO HIMSELF. PRN VALIUM ADMINSTERED ORDERED (SEE MAR) FOR CIWA OVER 8. PT NOW LAYING IN BED SLEEPING AND IN NO APPARENT DISTRESS. SPO2 AT 100%, IVF INFUSING ORDERED, BED IN LOWEST POSITION, BED ALARM ON, WILL CONTINUE PLAN OF CARE.
--- NOTE | 2020-11-11 03:42 | NUR ---
THIS RN IN TO ADMINISTER TUBERSOL. 5 UNITS PLACED SUB-Q ON PT'S R FOREARM, PT TOLERATED IT WELL. PT LAYING IN BED SLEEPING IN NO APPARENT DISTRESS, WILL CONTINUE PLAN OF CARE. IVF INFUSING, BED IN LOWEST POSITION, BED ALARM ON.
--- NOTE | 2020-11-11 04:26 | NUR ---
THIS RN IN TO ASSESS PT AND TAKE VITALS. PT WOKE UP DURING ASSESSMENT AND BECAME INCREASINGLY RESTLESS/AGITATED AND ANXIOUS. PT WAS CONFUSED AND ANSWERING QUESTIONS INNAPROPRIATELY. PRN HALDOL WAS ADMINISTERED IV. PT WAS INCONTINENT OF URINE AT THIS TIME, NEW GOWN/ SHEETS, AND PADS PLACED ON PT. PT PROVIDED WITH WARM BLANKETS HE STATED HE WAS COLD. PT NOW LAYING IN BED SLEEPING AND IN NO APPARENT DISTRESS. IVF INFUSING ORDERED, BED IN LOWEST POSITION, BED ALARM ON. WILL CONTINUE PLAN OF CARE.
--- NOTE | 2020-11-11 05:48 | NUR ---
PT LAYING IN BED SLEEPING. RESPIRATIONS NOTED AND ARE EVEN AND UNLABORED, PT IN NO APPARENT DISTRESS AT THIS TIME AND WAS LEFT UNDISTURBED. WILL CONTINUE PLAN OF CARE. IVF INFUSING, BED ALARM ON, BED IN LOWEST POSITION.
--- NOTE | 2020-11-11 06:33 | NUR ---
PT LAYING IN BED SLEEPING. RESPIRATIONS AND SNORING NOTED. BREATHING IN EVEN AND UNLABORED, SPO2 AT 99% ON ROOM AIR. PT IN NO APPARENT DISTRESS AND WAS LEFT UNDISTURBED AT THIS TIME, WILL CONTINUE PLAN OF CARE. IVF INFUSING ORDERED, BED ALARM ON, BED IN LOWEST POSITION.
--- NOTE | 2020-11-11 07:45 | NUR ---
IN TO PATIENTS ROOM TO ASSESS VITAL SIGNS. PATIENT DISORIENTED AND UNABLE TO ANSWER QUESTIONS. PATIENT RESTLESS AND STATED "SHIT" MULTIPLE TIMES. PATIENT UNABLE TO VERBALIZE ANY PAIN. WHEN ASSESSING THE PATIENT INCONTINENCE WAS NOTED. REDNESS NOTICED ON BUTTOCKS. PATIENT CLEANED AND NEW LINEN APPLIED. PATIENT APPEARS TO BE COMFORTABLE AT THIS TIME WITH NO COMPLAINTS. PATIENT IS NO LONGER RESTLESS AND IS SLEEPING. HR REMAINS IN THE 80'S, RESPIRATIONS EVEN AND UNLABORED. BED IN LOWEST POSITION AND BED ALARM SET.
--- NOTE | 2020-11-11 10:30 | NUR ---
IN TO CHECK ON PATIENT. PATIENT STATING THAT HE "NEEDS TO PEE". PATIENT WAS VOIDING IN THE BED AND ON THE FLOOR. PATIENT RECIEVED A BED BATH AND LINEN CHANGE. PATIENT WAS ASSITED WITH HYGIENE. PATIENT HAS NO COMPLAINTS AT THIS TIME. SCDS PLACED ON PATIENT AND BED ALARM SET.
--- NOTE | 2020-11-11 11:24 | CONS ---
[facility] [address], [place] [address] Signed DATE OF CONSULTATION: 11/11/2020 CHIEF COMPLAINT: Melena. HISTORY OF PRESENT ILLNESS: Stone is a 49-year-old gentleman, who apparently is semi-homeless and found either in or near a car. He was basically unconscious in a pool of melena. He was brought to our local emergency room for evaluation. He was found to have severe anemia with a hemoglobin around 4. He has received 4 units of packed red blood cells already and is now on his 5th. He has received IM Haldol overnight secondary to his methamphetamines to help keep him relaxed and calm here in our ICU. The Internal Medicine Service has been following him along. I was asked to see him as a general surgeon on-call for consideration of upper and lower endoscopy. PAST MEDICAL HISTORY: Hypertension, hepatitis C virus, and facial cellulitis. PAST SURGICAL HISTORY: Heart surgery as a child, and then left arm surgery. SOCIAL HISTORY: We are not sure at this point, but he apparently has no primary care provider. He obviously does methamphetamines. Apparently, he prefers the [facility]. We know his brother, Azar Davis, at [phone]. FAMILY HISTORY: Unobtainable. REVIEW OF SYSTEMS: Unobtainable. ALLERGIES: None. MEDICATIONS: None. PHYSICAL EXAMINATION: VITAL SIGNS: His blood pressure is 109/59, his heart rate is 87, respiratory rate 17, temperature is 98.3. He is 99% on room air. He is 6 feet 3 inches at 101 kg. GENERAL: Osmar is a 49-year-old gentleman, who is sedated, lying supine in his ICU bed. He is really not able to answer any questions. Electronically Signed By: MARY ANNE MD 11/11/20 1124 PATIENT NAME: STONE DAVIS CONSULTATION DATE OF : 72 REPORT #: [id number] PHYSICIAN: MARY ANNE MD PCP: NO PRIMARY CARE PHYSICIAN REPORT IS CONFIDENTIAL AND NOT TO BE RELEASED WITHOUT AUTHORIZATION [facility] [address], [place] [address] Signed LUNGS: Generally clear to auscultation bilaterally. HEART: He is in normal sinus rhythm. ABDOMEN: Moderately distended with diffuse tympany, does not appear to have peritonitis. LABORATORY DATA: His white blood cell count is 6.2, hemoglobin is up to 6.8 with a mean cell volume of 80 after 4 units of packed red blood cells. It was 4.0. BUN is 47, creatinine is 1.67, glucose 119, phosphorus slightly low at 2.3, INR normal at 1.3. Liver function tests fairly normal with an ever so slight increase in his AST. Lipase is normal. Albumin is low at 2.7. His COVID test came back negative and his methamphetamines came back positive. RADIOGRAPHIC STUDIES: None. ASSESSMENT AND PLAN: Stone is a 49-year-old gentleman, who apparently is homeless and on methamphetamines. He has presented with melena, severe anemia, and acute kidney injury. Unfortunately, we see this fairly frequently. He has been admitted to the Internal Medicine service and is now in his 5th unit of packed red blood cells. He is in no condition to answer questions alone undergo a bowel prep whatsoever. At this point, he seems stable and I think we will hold off on the upper endoscopy as well. He is at very high risk with respect to his small bowel due to his meth. We will continue to follow along and he may need a more thorough evaluation as an outpatient once he is medically stable. Mary Anne MD ALB/MODL /[id number] cc: MD Mary Garnica MD Copies: BERE ROMERO MD Electronically Signed By: MARY ANNE MD 11/11/20 1124 PATIENT NAME: STONE DAVIS CONSULTATION DATE OF : 72 REPORT #: [id number] PHYSICIAN: MARY ANNE MD PCP: NO PRIMARY CARE PHYSICIAN REPORT IS CONFIDENTIAL AND NOT TO BE RELEASED WITHOUT AUTHORIZATION [facility] [address], [place] [address] Signed MARY ANNE MD ~ Electronically Signed By: MARY ANNE MD 11/11/20 1124 PATIENT NAME: STONE DAVIS CONSULTATION DATE OF : 72 REPORT #: [id number] PHYSICIAN: MARY ANNE MD PCP: NO PRIMARY CARE PHYSICIAN REPORT IS CONFIDENTIAL AND NOT TO BE RELEASED WITHOUT AUTHORIZATION
--- NOTE | 2020-11-11 12:00 | NUR ---
UNIT OF PRBC COMPLETE. VS ASSESSED AND WNL. PATIENT STATED THAT HE NEEDED "TO PEE". PATIENT WAS OFFERED URINAL BUT WAS ALREADY INCONTINENT. PATIENT WAS REPOSITIONED IN BED AND NEW BED PADS APPLIED. PATIENT HAS NO COMPLAINTS AT THIS TIME. PATIENT IS RESTING COMFORTABLY IN BED AND IS NOT RESTLESS AT THIS TIME.
--- NOTE | 2020-11-11 13:42 | NUR ---
IN TO PATIENTS ROOM TO HANG IV FLUIDS.PATIENT HAS NO COMPLAINTS AT THIS TIME. PATIENT IS RESTING IN BED AND APPEARS TO BE COMFORTABLE. HR IN THE 80'S, RESPIRATIONS EVEN AND UNLABORED.
--- NOTE | 2020-11-11 14:20 | NUR ---
IN TO PERFORM GENITAL SWAB. PATIENT RESTING COMFORTABLY IN BED. PATIENT HAS NO COMPLAITNS AT THIS TIME. PATIENT NOT RESTLESS OR AGITATED AT THIS TIME.
--- NOTE | 2020-11-11 16:09 | NUR ---
IN TO ASSESS PATIENT AND VITAL SIGNS. PATIENT RESTING COMFORTABLY IN BED. HR REMAINS IN THE 80'S, RESPIRATIONS ARE EVEN AND UNLABORED. PATIENT HAS NO COMPLAINTS AT THIS TIME.
--- NOTE | 2020-11-11 17:25 | NUR ---
IN TO PATIENTS ROOM TO CHECK BLOOD GLUCOSE. GLUCOSE READING 98. PATIENT RESTING IN BED COMFORTABLY WITH NO COMPLAINTS AT THIS TIME.
--- NOTE | 2020-11-11 19:32 | NUR ---
REPORT RECEIVED FROM GABE RN, WILL CONTINUE PLAN OF CARE.
--- NOTE | 2020-11-11 20:40 | NUR ---
THIS RN IN TO ASSESS PT AND ADMINISTER ORDERED PROTONIX. PT LAYING IN BED SLEEPING, RESPIRATIONS NOTED AND ARE EVEN AND UNLABORED. PT AWAKES WITH SOUND/STIMULATION BUT DOES IS NOT ORIENTED AND DOES NOT ANSWER ALL QUESTIONS APPORPRIATELY. PT GOES BACK TO SLEEP QUICKLY. PT ASSESSED AT THIS TIME, ABDOMINAL DISTENTION NOTED, PT GRIMACES SLIGHTLY WHEN PALPATING UPPER RIGHT QUADRANT. NO BLEEDING NOTED ON ATTENDS. PT IN NO APPARENT DISTRESS AT THIS TIME, WILL CONTINUE PLAN OF CARE. BED IN LOWEST POSITION, BED ALARM ON, IVF INFUSING ORDERED, SCD'S IN PLACE, SPO2 AT 99% ON ROOM AIR.
--- NOTE | 2020-11-11 21:41 | NUR ---
THIS RN IN TO PUT A NEW BAG OF IVF. PT LAYING IN BED SLEEPING. PT WAS CHECKED AND WAS INCONTINENT OF URINE. PT AWOKE DURING THIS TIME BUT WAS CONFUSED AND NOT ANSWERING QUESTIONS APPROPRIATELY. PT STATED "I DONT KNOW" TO HIS DATE OF , LAST NAME, AND IF HE WAS HAVING ANY PAIN. PERICARE DONE, DESITIN PLACED, NEW ATTENDS IN PLACE. PT HAD SCANT DRY BLOOD PRESENT ON HIS ATTENDS WHEN CHANGED, NO ACTIVE BLEEDING NOTED FROM PT'S RECTUM WHEN DOING PERICARE AND PLACING DESITIN. PT NOW LAYING IN BED AND RETURNED BACK TO SLEEP. NO APPARENT NEEDS NOTED AT THIS TIME WILL CONTINUE PLAN OF CARE. CALL LIGHT IN REACH, BED IN LOWEST POSITION, BED ALARM ON, IVF INFUSING ORDERED.
--- NOTE | 2020-11-11 22:43 | NUR ---
THIS RN IN TO CHECK ON PT. PT LAYING IN BED SLEEPING. PRESPIRATIONS NOTED AND ARE EVEN AND UNLABORED. PT IN NO APPARENT DISTRESS AT THIS TIME. SCHEDULED VALIUM HELD PT HAS NOT BEEN AGITATED OR RESTLESS. WILL CONTINUE PLAN OF CARE, CALL LIGHT IN REACH, BED IN LOWEST POSITION, BED ALARM ON, IVF INFUSING ORDERED.
--- NOTE | 2020-11-11 23:30 | NUR ---
THIS RN IN TO ASSESS PT. PT LAYING IN BED SLEEPING INITIALLY BUT AWOKE DURING ASSESSMENT. PT WAS NOT ORIENTED AND UNABLE TO ANSWER WHAT HIS NAME WAS, IF HE HAD PAIN, OR LOCATION STATING "I DONT KNOW". PT ASSESSED AT THIS TIME. ABDOMEN DISTENTION IS MILD AND UNCHANGED AT THIS TIME. ABDOMEN IS SOFT. IVF INFUSING ORDERED. PT STATED HE WAS COLD AND WAS PROVIDED WITH WARM BLANKETS. PT WENT BACK TO SLEEP QUICKLY AFTER. PT IN NO APPARENT DISTRESS AT THIS TIME, WILL CONTINUE PLAN OF CARE. BED IN LOWEST POSITION, BED ALARM ON.
--- NOTE | 2020-11-12 02:00 | NUR ---
PT LAYING IN BED SLEEPING AT THIS TIME. RESPIRATIONS NOTED AND ARE EVEN AND UNLABORED. PT SPO2 AT 96% ON ROOM AIR. PT LEFT UNDISTURBED AT THIS TIME, WILL CONTINUE PLAN OF CARE. BED IN LOWEST POSITION, BED ALARM ON, IVF INFUSING ORDERED.
--- NOTE | 2020-11-12 03:10 | NUR ---
THIS RN IN TO CHECK ON PT. PT SLEEPING ON SIDE BUT AWOKE EASILY. PT WAS INCONTINENT OF URINE AT THIS TIME. PERICARE DONE, NEW ATTENDS IN PLACE, NEW PAD IN PLACE. NO BLOOD PRESENT ON ATTENDS OR WHEN DOING PERICARE. PT WAS MORE RESPONSIVE BUT STILL NOT ORIENTED. PT ANSWERED HIS NAME, STATED HE WAS COLD, AND ASKED FOR THE LIGHTS IN HIS ROOM TO BE TURNED OFF. PT STILL ANSWERING OTHER QUESTIONS WITH GARBLED SPEECH OR INNAPROPRIATELY. PT DENIES PAIN AT THIS TIME WHEN ASKED. PT IN NO APPARENT DISTRESS, WILL CONTINUE PLAN OF CARE. PT PROVIDED WITH BLANKETS, BED IN LOWEST POSITION, BED ALARM ON, IVF INFUSING ORDERED.
--- NOTE | 2020-11-12 04:59 | NUR ---
THIS RN IN TO ASSESS PT. PT LAYING IN BED SLEEPING. PT AWOKE BRIEFLY WHILE ASSESSING BUT WAS STILL CONFUSED AND NOT ORIENTED. PT WAS ABLE TO FOLLOW COMMANDS AND DENIED HAVING ANY PAIN BUT UNABLE TO ANSWER LOCATION OR HIS NAME. PT RETURNED BACKT TO SLEEP AFTER ASSESSMENT. WILL CONTINUE PLAN OF CARE. BED IN LOWEST POSITION, BED ALARM ON, IVF INFUSING ORDERED.
--- NOTE | 2020-11-12 06:04 | NUR ---
THIS RN IN TO CHECK ON PT. PT LAYING IN BED ASLEEP AND WAS INCONTINENT OF URINE. PERICARE DONE, DESITINE PLACED ON BACKSIDE, NEW ATTENDS AND PADS IN PLACE. NO BLOOD NOTED ON OLD ATTENDS OR WHEN DOING PERICARE. PT WOKE DURING THIS TIME AND WAS STILL CONFUSED AND ORIENTED ONLY TO SELF ANSWERING HIS FULL NAME WHEN ASKED. PT DENIES ANY PAIN AT THIS TIME AND ASKED FOR WATER. PT WAS GIVEN MOUTH SWABS WITH WATER AT THIS TIME. PT ALSO PROVIDED WITH WARM BLANKETS. PT IN NO APPARENT DISTRESS AT THIS TIME AND IS NOW LAYING IN BED SLEEPING. NEW BAG OF IVF INFUSING, SCHEDULED VALIUM HELD PT IS NOT AGITATED/RESTLESS OR ANXIOUS AT THIS TIME. WILL CONTINUE PLAN OF CARE. BED IN LOWEST POSITION, BED ALARM ON.
--- NOTE | 2020-11-12 06:58 | NUR ---
THIS RN IN TO CHECK ON PT. PT WAS TURNED TO SIDE AND URINATING ON FLOOR. FLOOR WAS CLEANED, PERICARE DONE, NEW SHEETS, PADS, AND ATTENDS IN PLACE. NO APPARENT NEEDS AT THIS TIME, PT NOW LAYING IN BED AWAKE. WILL CONTINUE PLAN OF CARE. BED IN LOWEST POSITION, IVF INFUSING.
--- NOTE | 2020-11-12 07:15 | NUR ---
Report received, orders acknowledged. Patient sleeping in bed, respirations even and unlabored.
--- NOTE | 2020-11-12 07:25 | NUR ---
RECIEVED REPORT FROM JANITOR HEAD. PT LAYING IN BED ASLEEP, EYES, CLOSED NO SIGNS OF LABORED BREATHING. HEAD ELEVATED. PT ASK FOR WATER. WILL CONTINUE TO MONITOR. CALL LIGHT WITHIN REACH. WILL CONTINUE TO MONITOR CLOSELY.
--- NOTE | 2020-11-12 08:06 | NUR ---
DR. ROMERO IN TO SEE PATIENT. PATIENT ASKING, "CAN I JUST HAVE SOME WATER? I NEED SOME FUCKING WATER." PATIENT GIVEN ICE CHIPS BUT STILL REMAINS NPO UNTIL FURTHER DIRECTION FROM MD REGARDING WHETHER OR NOT HE WILL HAVE A SCOPE POTENTIALLY. PT HAS NOT SHOWN ANY FURTHER SIGNS OF BLEEDING AT THIS TIME. IVF DECREASED TO 75 ML/HR FROM [address] ROMERO. HR REMAINS IN THE 80s. PT IS STILL NOT ORIENTED TO PLACE OR EVENT, BUT TO SELF. SCDs REMAINS ON. PITTING EDEMA IN LOWER LEGS IS STILL 2-3+. BED ALARM REMAINS ON FOR SAFETY. PT ASKED IF HE NEEDS TO VOID AND DENIES NEED AT THIS TIME. IN NEED OF A URINE SAMPLE TO SEND TO LAB.
--- NOTE | 2020-11-12 09:58 | NUR ---
U/S TECH CALLED FOR ABDOMINAL ULTRASOUND. DR. ANNE IN TO SEE PATIENT.
--- NOTE | 2020-11-12 12:41 | NUR ---
PT ASSESSMENT COMPLETE. PT VERUY DROWSY AND LOOSES ATTENTION. EASILY REORIENTED WHEN NAME IS SAME. CONTINUES TO ASK FOR WATER. GIVEN A FEW SPOONS OF ICE. ACTIVE BOWEL TONES IN THE UPPER QUADRANTS AND HYPOACTIVE IN THE LOWER. PT DENIES HAVING TO USE THE BATHRROM ORT EXPERIENCING PAIN. PT REPOSITIONED HIMSELF HIGHER IN THE BED. PT REPORTS BEING COLD. UNDERARM TEMP IS 99.3. NO OTHER CONCERNS AT THIS TIME. CALL LIGHT WITHIN REACH. WILL CONTINUE TO MONITOR CLOSELY.
--- NOTE | 2020-11-12 13:52 | NUR ---
PT SITTING AT THE END OF THE BED. WHEN ASKED IF PT NEEDED ANYTHING PT REQUESTED WATER. GAVE PT A CUP OF ICE CHI[S WITH SPOON. PT DENIES NO OTHER NEEDS. PT IS ORIENTED TO PLACE AND NAME. TALKS MORE AND ALERT. PT DENIES THE NEED TO USE THE RESTROOM. P[T LAYING IN BED. HEAD ELEVATED. BED ALARM ON. CALL LIGHT WITHIN REACH. WILL CONTINUE TO MONITOR CLOSE.
--- NOTE | 2020-11-12 15:00 | NUR ---
Patient up to BSC, large chocolate brown liquid BM produced. Unmeasured void. Patient begins to shake and states "I feel chilly." Temp checked, oral of 98.5. Warm blankets provided. Patient returned to bed with 1PA, adjusted in bed for comfort. Denies pain or nausea. Call light within reach.
--- NOTE | 2020-11-12 17:01 | NUR ---
Patient sleeping in bed, respirations even and unlabored. Patient rouses to voice. Clear liquid tray delivered. Patient ate 100% of meal, no coughing noted. Patient states "I feel cold." Temp increased in room, warm blankets provided. Patient falls asleep easily, call light within reach.
--- NOTE | 2020-11-12 18:00 | NUR ---
Patient appears flushed and reports feeling "very chilly." Patient is hot to the touch and reports "pain all over." Patient's abdomen is distended yet soft, denies pain in abdomen. Patient does not guard abdomen. Oral temp of 100.[address] Troncoso called, orders acknowledged for a one time does of 650mg of PO tylenol to be given.
--- NOTE | 2020-11-12 18:45 | NUR ---
Patient educated on using the IS. Patient able to use IS multiple times to 1250 mls. Patient reports feeling improved. Patient appears less flushed and is not shaking. Oral temp of 101.1. Dr. Troncoso to be notified.
--- NOTE | 2020-11-12 18:48 | NUR ---
PT ASKING FOR WATER. NOTICED PT FACE WAS FLUSHED. GOT PT UP TO WALK AND SAT BACK IN CHAIR. TOOK VITALS AND CALLED DR ROMERO. PT SHAKING AND REPORTS "BEING COLD AND HURTS EVERYWHERE" BUT COULD NOT SAY WHAT KIND OF PAIN. PT GIVEN A GLASS OF ICE WATER AND IV RESTARTED. LEFT AC IV WAS LEAKING SO DC'D. PT SITTING IN CHAIR WITH LEGS UP. PT USED INCENTIVE SPIROMETER. DR LEATHA ARBOLEDA.
--- NOTE | 2020-11-12 20:30 | NUR ---
THIS RN IN TO ASSESS PT AND ADMINISTER ORDERED MEDICATIONS. PT SITTING IN BEDSIDE RECLINER AWAKE ASKING FOR WATER. PT PROVIDED WITH WATER AND ICE CHIPS AT THIS TIME. PT ORIENTED TO SELF, LOCATION, BUT NOT EVENT. PT DENIES PAIN AT THIS TIME WHEN ASKED. PT ASSESSED AT THIS TIME. AFTER ASSESSMENT PT STATED HE NEEDED TO VOID, PT WAS ABLE TO USE URINAL TO VOID. PERICARE DONE AND NEW ATTENDS PLACED PT HAD A SMEAR/BM THAT WAS DARK/BROWN ON HIS ATTENDS. NEW GOWN ALSO GIVEN TO PT. MEDICATION ADMINISTERED ORDERED AT THIS TIME. PT PROVIDED WTIH ADDITIONAL WATER AND ICE CHIPS HE REQUESTED MORE. WHILE ASSESSING VITALS TEMPERATURE WAS ELEVATED TO 101.3 AXILLARY, WILL REPORT TO DR. ROMERO. PT REPORTS NO FURTHER NEEDS AT THIS TIME, WILL CONTINUE PLAN OF CARE. CALL LIGHT IN REACH, IVF INFUSING ORDERED.
--- NOTE | 2020-11-12 20:40 | NUR ---
DR. ROMERO UPDATED ON PT AND NOTIFIED OF PT'S ELEVATED TEMPERATURE OF 101.3 AXILLARY. ORDERS GIVEN FOR BLOOD CULTURES, CHEST X-RAY, AND A ONE TIME DOSE OF TYLENOL. WILL CONTINUE PLAN OF CARE.
--- NOTE | 2020-11-12 21:00 | NUR ---
PT LAYING IN BEDSIDE CHAIR. IMAGING IN TO TAKE A CXR. ONE TIME DOES OF TYLENOL ADMINSITERED AT THIS TIME. PT REPORTS NO FURTHER NEEDS AND WAS PROVIDED WITH ICE CHIPS PER HIS REQUEST. WILL CONTINUE PLAN OF CARE. IVF INFUSING, CALL LIGHT IN REACH.
--- NOTE | 2020-11-12 22:40 | NUR ---
THIS RN IN TO DRAW CULTURES. 2 SETS OBTAINED ONE FROM THE LEFT AC AND ONE FROM THE RIGHT. PT LAYING IN BEDSIDE RECLINER ASLEEP. PT DENIES WANTING TO GO OVER TO THE BED AT THIIS TIME WHEN ASKED. WILL CONTINUE PLAN OF CARE. CALL LIGHT IN REACH, BED IN LOWEST POSITION, IVF INFUSING ORDERED.
--- NOTE | 2020-11-13 00:31 | NUR ---
THIS RN IN TO ASSESS PT, PT LAYING IN BEDSIDE RECLINER ASLEEP. PT AWOKE TO VOICE AND WAS ORIENTED TO SELF, LOCATION, BUT NOT EVENT OR YEAR. PT IS DROWSY AT THIS TIME BUT ABLE TO FOLLOW COMMANDS. PT DENIES ANY PAIN AND DENIES CHILLS OR FEELING WARM. ABDOMEN STILL MILDLY DISTENDED, BOWEL TONES ACTIVE. PT TEMPERATURE TAKEN AND IS 99.5 ORAL. PT DENIES HAVING A BM OR AN EPISODE OF INCONTINENCE, ATTENDS CHECKED AND ARE CLEAN AT THIS TIME. PT REPORTS NO FURTHER NEEDS AND STATES HE DOES NOT WANT TO SLEEP ON THE BED WHEN ASKED. PT RETURNED BACK TO SLEEP ON THE BEDSIDE RECLINER, WILL CONTINUE PLAN OF CARE. CALL LIGHT IN REACH, IVF INFUSING ORDERED.
--- NOTE | 2020-11-13 01:15 | NUR ---
RESPONDED TO CALLING OUT THAT HE NEEDED TO GO TO THE BATHROOM. PT SITTING UP IN BEDSIDE RECLINER AND STATED HE NEEDED TO HAVE A BM. PT ASSISTED UP, PT ABLE TO USE FRONT WHEEL WALKER TO SHUFFLE OVER AND USE THE COMMODE. PT HAD A LIQUID BM THAT AND AN UNMEASURED VOID HE MISSED THE URINAL. PERICARE DONE, NO BLOOD NOTED, DESITIN APPLIED, NEW ATTENDS IN PLACE. PT WAS HELPED UP AND WAS ABLE TO SHUFFLE BACK TO THE BEDSIDE RECLINER. PT MORE CLEAR NOW AND ORIENTED TO SELF, LOCATION, AND YEAR BUT NOT EVENT. PT ASKED FOR WATER AND JELLO. PT PROVIDED WITH BOTH AND WAS ABLE TO EAT/DRINK WITHOUT DIFFICULTY. PT STATED HE WAS COLD, WARM BLANKET PROVIDED. PT REPORTS NO PAIN WHEN ASKED AND RETURNED TO SLEEP. WILL CONTINUE PLAN OF CARE. CALL LIGHT IN REACH, IVF INFUSING, SCD'S IN PLACE.
--- NOTE | 2020-11-13 03:21 | NUR ---
THIS RN IN TO CHECK ON PT. PT LAYING IN BEDSIDE RECLINER SLEEPING. RESPIRATIONS NOTED AND ARE EVEN AND UNLABORED. PT IN NO APPARENT DISTRESS AT THIS TIME AND WAS LEFT UNDISTURBED. CALL LIGHT IN REACH, IVF INFUSING ORDERED, SCDS ON.
--- NOTE | 2020-11-13 04:10 | NUR ---
THIS RN IN TO ASSESS PT AND READ TB TEST. PT INITIIALLY LAYING IN BEDSIDE RECLINER AWAKE ASKING FOR WATER. PT WAS MORE AWAKE AND ORIENTED THIS TIME ANSWERING QUESTIONS APPROPRIATELY. PT STILL NOT ORIENTED TO EVENT BUT WAS REMINDED. ASSESSMENT COMPLETED AT THIS TIME, ABDOMEN MODERATELY DISTENDED, PT DENIES PAIN WHEN PALPATED, ABDOMENT IS MILDLY FIRM. BOWEL TONES ACTIVE IN ALL QUADRANTS. PT HELPED OVER TO BED USING FRONT WHEEL WALKER. TB SKIN TEST WAS 10MM, SITE WAS RED, A SMALL RAISED BUMP/NODULE WAS FELT OVER SITE. PT ASKED ABOUT IV DRUG USE, PT STATES HE USES IV METH. PT PROVIDED WITH JELLO AND ICE WATER PER HIS REQUEST. PT REPORTS NO FURTHER NEEDS WHEN ASKED AT THIS TIME, WILL CONTINUE PLAN OF CARE. CALL LIGHT IN REACH, BED IN LOWEST POSITION, IVF INFUSING, SCDS IN PLACE AND ON.
--- NOTE | 2020-11-13 07:37 | NUR ---
Patient resting in bed, eyes closed, respirations even and non labored. Patient has no notable distress at this time. IV is patent, fluids infising without difficulty. Close to RN station for frequent monitoring. No needs at this time. Call light within reach.
--- NOTE | 2020-11-13 07:49 | NUR ---
pt used the bedside commode. bedlinens changed. no other needs at this time
--- NOTE | 2020-11-13 08:00 | NUR ---
Dr. Perez in to see patient this morning. Per Dr. Perez, patient to be NPO after midnight tonight for an upper/lower endoscopy.
--- NOTE | 2020-11-13 09:06 | NUR ---
Patient awake at this time, alert and oriented x3. Dr. Troncoso in to consult with patient. Critical hemoglobin 6.[address] Troncoso at this time.
--- NOTE | 2020-11-13 09:30 | NUR ---
Patient brushed teeth and had a bed bath. Started bowel prep at this time. Patient educated and aware of upper/lower scope tomorrow morning. All questions answered related to procedure and plan of care. Consent obtained and placed in chart. Patient reports to medical staff of recent incarceration and current meth use. Patient also reports a history of alcohol use and is currently living out of his truck.
--- NOTE | 2020-11-13 10:40 | NUR ---
Patient up to restroom for bowel movement. Patient also took walk per his request, leslie assist with walker; tolerated well.
--- NOTE | 2020-11-13 11:16 | NUR ---
Patient resting in chair at this time, respirations even and non labored. Patient has no distress. Close to RN station. Most recent vital signs are stable. Personal supplies and call light within reach.
--- NOTE | 2020-11-13 12:51 | NUR ---
Patient resting in bed, eyes closed, respirations even and non labored. Patient has no distress. Oxygen saturations is 97%. Most recent vital signs are stable. Close to RN station, call light within reach.
--- NOTE | 2020-11-13 13:52 | NUR ---
Patient resting in bed, eyes closed, respirations even and non labored. Patient has no distress. Patient recently up to restroom for bowel movement. Personal supplies and call light within reach.
--- NOTE | 2020-11-13 15:14 | NUR ---
Patient awake sitting up in bed, a&ox3. Patient denies pain, respirations non labored. Patient tolerating clear liquid diet well. Multiple bowel movements today; stool is liquid, light brown in color. Patient continuing to drink bowel prep without difficulty. No needs at this time. Call light within reach.
--- NOTE | 2020-11-13 16:09 | NUR ---
CARE OF PATIENT RESUMED BY THIS RN AT 1530. PATIENT RESTING IN BED AND ABLE TO VERBALIZE HIS NEEDS. PT REQUESTING MORE JELLO, BROTH, WATER, AND GATORADE AND ICE. PT USING INCENTIVE SPIROMETER BY HIMSELF WELL. PLAN OF CARE DISCUSSED. PT DENIES PAIN AT THIS TIME. PT SEEMS TO RECOLLECT MORE AND MORE OF THE EVENT THAT LEAD TO HIS HOSPITALIZATION AND ENDORSES THAT HE WAS VOMITING BLOOD "FOR A LONG TIME" PRIOR TO BEING TRANSPORTED TO HOSPITAL. PT ALSO DISCUSSED HIS SUBSTANCE ABUSE OF METH, STATING THAT HE MOST RECENTLY HAS BEEN SMOKING IT, HOWEVER HE DOES STATE, "I DON'T WANT THAT IN MY LIFE ANYMORE. I DON'T WANT TO USE IT ANYMORE. THERE'S NOTHING GOOD ABOUT IT." [facility] WILL COME INTO SEE PATIENT TOMORROW MORNING. PATIENT WILL HAVE UPPER AND LOWER SCOPE TOMORROW WIHT DR. ANNE. PT'S MOTHER IS SUPPOSED TO BE ARRIVING TODAY TO SEE PATIENT WELL. DISCUSSED WITH PATIENT THAT HE WILL NEED SOMEONE TO BRING HIM IN CLEAN CLOTHES THE CLOTHES HE HAS ARE FULL OF FECES/URINE AND SMELL. WILL DISCUSS WITH HIS MOTHER IF/WHEN SHE ARRIVES TODAY. CALL LIGHT WITHIN REACH.
--- NOTE | 2020-11-13 16:15 | NUR ---
Would like to speak with [facility] support. I called and spoke with Ramona and she can see pt in am from [facility]. Pt states mom will be into visit at 4 pm. Suggested he ask mom if he can stay with her for a while when discharged. Pt is scheduled for EGD and c scope tomorrow. Pt believes he has a Dr. at [facility] but is unsure. I called [facility] and they have not seen this pt. Called . A clinic and he made an appt to establish care, he then noshowed. They will send a message to oc provider to see if they will take this pt.and let me know. Pt unsure where he plans to go at discharge.
--- NOTE | 2020-11-13 17:30 | NUR ---
PATIENT'S MOTHER ARRIVES AND GIVEN AN UPDATE ON HIM. SHE IS NOW IN ROOM WITH HIM. CLEAR LIQUID TRAY PROVIDED TO PATIENT.
--- NOTE | 2020-11-13 19:59 | NUR ---
REPORT RECEIVED FROM ELIJAH ALBERTS. PT ASSISTED UP WITH USING BSC FOR VOID/LIQUID STOOL BROWN IN COLOR. ASSESSMENT DONE. LUNGS CLEAR, PT USING IS ON HIS OWN AT TIMES. LAST TEMP CHECKED BY DAY SHIFT WAS 101.5 ORALLY. TEMP RECHECKED AT THIS TIME IS 100.0 AXILLARY AND 99.9 ORAL. PT HAS CHILLS, REQUESTING WARM BLANKETS. DENIES PAIN OR NEEDS.
--- NOTE | 2020-11-13 20:17 | NUR ---
DR ROMERO NOTIFIED OF INCREASED TEMP, WILL GIVE TYLENOL.
--- NOTE | 2020-11-13 21:30 | NUR ---
MEDS GIVEN, PT DENIES NEEDS, TRYING TO SLEP.
--- NOTE | 2020-11-14 01:15 | NUR ---
PT UP TO VOID THEN BACK TO BED.
--- NOTE | 2020-11-14 03:30 | NUR ---
PT CONT TO SLEEP, RESP EVEN AND UNLABORED, HR 90'S, RR 20.
--- NOTE | 2020-11-14 06:20 | NUR ---
AWAKENS FOR LAB DRAW, DENIES NEEDS.
--- NOTE | 2020-11-14 07:30 | NUR ---
REPORT RECIEVED. PATIENT IS RESTFUL IN BED. NO DISTRESS NOTED.
--- NOTE | 2020-11-14 08:15 | NUR ---
ASSESSMENT DONE. WILL GIVEN PATIENT SHOWER WHEN TIME ALLOWS. ORAL CARE GIVEN.
--- NOTE | 2020-11-14 09:00 | NUR ---
to or via stretcher for UPPER AND LOWER SCOPE. LR ON STRAIGHT TUBING INFUSING.
--- NOTE | 2020-11-14 10:31 | NUR ---
room picked up, bed linens done.
--- NOTE | 2020-11-14 10:50 | NUR ---
RETURN TO CCU, IS AWAKE AND ABLE TO FOLLOW COMMANDS, PATIENT IS COOPERATIVE. DENIES PAIN OR NAUSEA. PATIENT IS REQUESTING FOOD.
--- NOTE | 2020-11-14 11:06 | NUR ---
11/14/20 Thaddeus6 Anabel Valle LE 1025: PATIENT LIFTS HIS HEAD SLIGHTLY OFF THE PILLOW AND DOES NOT FOLLOW DIRECTIONS. LE 1037: PATIENT WAKES TO MY VOICE AND LIGHT TOUCH AND OPENS HIS MOUTH. ORAL AIRWAY IS REMOVED. PATIENT REPOSITIONS HIMSELF ONTO HIS BACK. OXYGEN IS REMOVED. LE 1038: CALL TO CCU REPORTING PATIENT'S RETURN TO ROOM 129. LE 1043: VERBAL BEDSIDE REPORT IS GIVEN TO JAMARCUS ANNA RN. PATIENT MOVES HIMSELF FROM THE STRETCHER TO THE BED AND HE TOLERATES THAT WELL.
--- NOTE | 2020-11-14 11:30 | NUR ---
AMBULATED TO SHOWER ACCOMP BY RN. RN ASSISTED PATIENT WITH SHOWER. PATIENT TOLERATED WELL. IS COOPERATIVE.
--- NOTE | 2020-11-14 12:00 | NUR ---
AMBULATED BACK TO ROOM POST SHOWER. PATIENT STATES HE FEELS LIKE HE NEEDS A WALKER. UPON RETURN TO ROOM, PADDY WORKER HERE TO TALK WITH PATIENT.
--- NOTE | 2020-11-14 12:20 | NUR ---
PATIENT IS TALKING ABOUT HOW MUCH HE WANTS TO GO HOME. DR. ROMERO UPDATED ON PATIENT. ORDERS RECIEVED TO NOTIFY GRINDER BRAKE LINING REGARDING DISCHARGE, THIS DONE. PATIENT TOOK TWO HELPINGS OF MASHED POTATOES, SOUP, PUDDING X2, ICE CREAM X 2 SINCE [place] [facility] [place] DENIES NAUSEA.
--- NOTE | 2020-11-14 13:00 | NUR ---
SITTING IN CHAIR.
--- NOTE | 2020-11-14 13:20 | NUR ---
AMBULATED IN HALLWAY WITH WALKER TOLERATED WELL. BACK TO CHAIR AFTER WALKING. WILL HAVE PHYS THERAPY EVAL.
--- NOTE | 2020-11-14 14:05 | NUR ---
PHYS THERAPY IN ROOM AND WORKED WITH PATIENT. PATIENT CLEARED PER PHYS THERAPY AND NO NEEDS UPON DISCHARGE. PATIENT HAD A SECOND VISITOR SHOW UP AND ENTER INTO ROOM WHO HE STATES IS HIS COUSIN. WAITING ON DR. ROMERO'S DISCHARGE ORDER AT THIS TIME.
[2020-11-14] MEDS ORDERED: PANTOPRAZOLE SO40 MG PO (14:16)
[2020-11-14] MEDS ORDERED: LACTULOSE20 GM/30 M PO (14:16)
--- NOTE | 2020-11-14 14:16 | NUR ---
DISCHARGE ORDER WRITTEN AND WORKING ON PATIENT'S DISCHARGE. PT UP TO BATHROOM TO VOID AND HAS CONTINUED LIQUID BMs.
--- NOTE | 2020-11-14 14:25 | NUR ---
DISCHARGE INSTRUCTIONS GIVEN WITH PATIENT UNDERSTANDING. SL DC'D WITH CATH INTACT.
--- NOTE | 2020-11-14 14:40 | NUR ---
DISCHARGED VIA W/C ACCOMP BY FRIEND AND FOOTBALL COACH.
--- NOTE | 2020-11-15 08:19 | OR ---
[facility] [address], [place] [address] Signed DATE OF OPERATION: 11/14/2020 SURGEON: Mary Anne MD PREOPERATIVE DIAGNOSES: 1. Epigastric pain and burning. 2. Melena. 3. Severe anemia (hemoglobin 4.0). POSTOPERATIVE DIAGNOSES: 1. Three shallow healing, nonbleeding, antral, gastric ulcers. 2. Moderate diffuse gastritis/congestion. 3. Small to moderate-sized hiatal hernia. 4. Moderate-sized varices up to mid esophagus. 5. Minimal sigmoid diverticulosis. 6. Moderate internal hemorrhoids. 7. 4 mm polyp at 7 cm. PROCEDURES: 1. EGD with CLOtest and biopsy of the antrum. 2. Colonoscopy with hot biopsy. ESTIMATED BLOOD LOSS: None. INDICATIONS: Pradip is a 49-year-old gentleman, who was recently was in retirement. He had been complaining about epigastric abdominal pain and heartburn. He had been released from retirement and was found in a pool of melena. He had been brought to the hospital with respect to the above. He was found to have severe anemia with a hemoglobin of 4.0. He received 5 units of packed red blood cells per the Internal Medicine Service. It took several days to hydrate him and get him out of acute kidney injury. His ammonia level was around 100 or so and it is down into the 50-60 range and he is much better at this point. We have been unable to reach his brother by telephone. I have been asked to see him as a general surgeon on-call for consideration of upper and lower endoscopy. In the meantime, his hemoglobin seems to be stable. He has passed several brown stools and no additional melena or bright red blood per rectum. He had been given lactulose because of the high ammonia levels. The ultrasound of the abdomen confirmed the cirrhosis of the liver with moderate ascites and portal hypertension. I had met with Pradip each day in the ICU and I had reviewed the above findings with him. I Electronically Signed By: MARY ANNE MD 11/15/20 0819 PATIENT NAME: PRADIP DAVIS OPERATIVE REPORT DATE OF : 72 REPORT #: [id number] PHYSICIAN: MARY ANNE MD PCP: SHADY NEVAREZ NP REPORT IS CONFIDENTIAL AND NOT TO BE RELEASED WITHOUT AUTHORIZATION [facility] [address] [place] [id number] Signed reviewed upper and lower endoscopy with him. He understands the nature of the two tests along with the risks including, but not limited to gas bloating, crampy abdominal pain, bleeding, perforation requiring surgery, and missed diagnosis. Also because of his advanced medical issues, we asked that an anesthesia provider help us with increased monitoring and sedation with propofol. He had expressed understanding and wished to proceed. PROCEDURE NOTE: Pradip was taken into our endoscopy suite and placed in the supine semi-recumbent position. The posterior oropharynx was anesthetized with Hurricaine spray. A bite block was utilized for the case. The adult gastroscope was introduced and advanced out into the third portion of the duodenum under direct visualization of camera without difficulty. The duodenum and pyloric channel were unremarkable. However, the stomach showed diffuse moderate inflammatory changes and congestion. He had three shallow nonbleeding ulcers in the antrum of the stomach. We took biopsies of the antrum for CLOtest as well as pathologic review. Upon retroflexion of scope, we can see he does have a small to moderate sized hiatal hernia. However, there was enough gastric fluid in the way we could not measure it out very well. The scope had been withdrawn up through the area of the GE junction, which was compliant without stricture. He does have irritation around the GE junction, distal esophagus. He also has moderate-sized esophageal varices extending up to his mid esophagus. After this, the gas been suctioned out and the gastroscope removed. Pradip tolerated the procedure quite well. Pradip was then rotated into the left lateral decubitus position. He was maintained on IV sedation with propofol per our nurse recreational assistant. A digital rectal exam was performed and this was unremarkable including the prostate. The adult colonoscope had been introduced and advanced all around into the cecum under direct visualization of camera. It took a little abdominal compression in order to advance the scope. His prep was good. The scope was then slowly withdrawn. We could easily see the appendiceal orifice and ileocecal valve. Again, we took pictures throughout for photodocumentation. He does have some diverticula in the left colon. They were moderate in size, few in number, and scattered about. No polyps in the colon. The rectum had just a tiny 4 mm polyp at 7 cm. It was easily removed with the help of a hot biopsy forceps. Upon retroflexion of the scope, he does have moderate-sized internal hemorrhoids. After this, the gas was suctioned out and the colonoscope removed. Pradip tolerated the procedure quite well. RECOMMENDATIONS: Pradip will be returned to his ICU bed with Internal Medicine Service. He will stay on his proton-pump inhibitor and resume a diet. Electronically Signed By: MARY ANNE MD 11/15/20 0819 PATIENT NAME: SUSANPRADIP CHANG OPERATIVE REPORT DATE OF : 72 REPORT #: [id number] PHYSICIAN: MARY ANNE MD PCP: SHADY NEVAREZ NP REPORT IS CONFIDENTIAL AND NOT TO BE RELEASED WITHOUT AUTHORIZATION [address] [place] [address] Signed Mary Anne MD [facility] /[id number] cc: Mary Anne MD Copies: MARY ANNE MD ~ Electronically Signed By: MARY ANNE MD 11/15/20 0819 PATIENT NAME: PRADIP DAVIS OPERATIVE REPORT DATE OF : 72 REPORT #: [id number] PHYSICIAN: MARY ANNE MD PCP: SHADY NEVAREZ NP REPORT IS CONFIDENTIAL AND NOT TO BE RELEASED WITHOUT AUTHORIZATION
== END 2020-11-14 14:35 | disposition home or self-care (01) | DRG 378 ==
LOC: ED 14:35 → CCU 17:26
PROVIDERS: Colon & Rectal Surgery; ADMIT Internal Medicine; ATTEND Internal Medicine
PROC: 30233N1 Transfusion of Nonautologous Red Blood Cells into Peripheral Vein, Percutaneous Approach (ICD-10-PCS; 2020-11-10)
PROC: 0DB68ZX Excision of Stomach, Via Natural or Artificial Opening Endoscopic, Diagnostic (ICD-10-PCS; principal; 2020-11-14 09:45)
PROC: 0DBP8ZX Excision of Rectum, Via Natural or Artificial Opening Endoscopic, Diagnostic (ICD-10-PCS; 2020-11-14 09:45)
DX: K29.71 Gastritis, unspecified, with bleeding (principal); D62 Acute posthemorrhagic anemia; N17.9 Acute kidney failure, unspecified; K76.6 Portal hypertension; E72.20 Disorder of urea cycle metabolism, unspecified; Z20.822 Contact with and (suspected) exposure to COVID-19; K25.4 Chronic or unspecified gastric ulcer with hemorrhage; K44.9 Diaphragmatic hernia without obstruction or gangrene; K74.60 Unspecified cirrhosis of liver; I85.10 Secondary esophageal varices without bleeding; I10 Essential (primary) hypertension; B19.20 Unspecified viral hepatitis C without hepatic coma; F17.200 Nicotine dependence, unspecified, uncomplicated; E88.09 Other disorders of plasma-protein metabolism, not elsewhere classified; K57.30 Diverticulosis of large intestine without perforation or abscess without bleeding; K62.1 Rectal polyp; K64.8 Other hemorrhoids; N48.5 Ulcer of penis; R78.4 Finding of other drugs of addictive potential in blood
CPT/HCPCS: 36415; 36430; 71045; 76700; 80048; 80053; 81001; 82140; 82550; 83690; 83735; 84100; 84484; 85025; 85610; 85730; 86592; 86593; 86677; 86694; 86695; 86696; 86703; 86704; 86706; 86709; 86803; 86850; 86900; 86901; 86920; 87340; 87491; 87521; 87522; 87591; 93005; 93010; 97162; 99285-25; C9113; C9803; J1630; J2001; J2704; J3010; J3360; J3411; J7030; J7121; P9016; U0003

== ENCOUNTER 2020-11-16 00:16 | Emergency (ER) | payer OTHER ==
[~2020-11-16] VITALS: Ht 190.5 cm; Wt 100.9 kg
[~2020-11-16 00:16] MED LIST changes: +LACTULOSE20 GM/30 M PO; +PANTOPRAZOLE SO40 MG PO
--- OUTSIDE RECORDS SUMMARY | 2020-11-16 00:18 | XMS ---
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 [place] has no Care Guidelines for this patient. Care History Medical/Surgical 03/27/2020 [facility] - CHW CALLED PATIENT AT NUMBER LISTED-PATIENT SISTER ANSWERED THE PHONE AND STATED HER BROTHER (PATIENT) IS NO LONGER IN THE AREA. E.D. VISIT COUNT (12 MO.) 4 [facility]. TOTAL 4 NOTE: Visits indicate total known visits. ED/UCC VISIT TRACKING (12 MO.) 11/16/2020 00:[address] [facility] [place] TYPE: Emergency COMPLAINT: - ABDOMINAL PROBLEMS 11/10/2020 14:[address] [facility] [place] TYPE: Emergency COMPLAINT: - BLOODY STOOL 08/17/2020 19:[address] [facility] [place] TYPE: Emergency COMPLAINT: - FEVER,WEAKNESS DIAGNOSES: - Fever, unspecified - Essential (primary) hypertension - Urinary tract infection, site not specified - Nicotine dependence, unspecified, uncomplicated 03/25/2020 23:[address] [facility] [place] [place] TYPE: Emergency COMPLAINT: - CHIN PAIN DIAGNOSES: - Essential (primary) hypertension - Other manager intermediate (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 - Cutaneous abscess of face - Nicotine dependence, unspecified, uncomplicated INPATIENT VISIT TRACKING (12 MO.) 11/10/2020 17:[address] [facility] [place] TYPE: Critical Care COMPLAINT: - GI BLEED, ANEMIA DIAGNOSES: - Other hemorrhoids - Other hemorrhoids - Diverticulosis of large intestine without perforation or abscess without bleeding - Nicotine dependence, unspecified, uncomplicated - Diaphragmatic hernia without obstruction or gangrene - Gastritis, unspecified, with bleeding - Disorder of urea cycle metabolism, unspecified - Ulcer of penis - Portal hypertension - Other disorders of plasma-protein metabolism, not elsewhere classified - Nicotine dependence, unspecified, uncomplicated - Diverticulosis of large intestine without perforation or abscess without bleeding - Acute posthemorrhagic anemia - Unspecified viral hepatitis C without hepatic coma - Rectal polyp - Acute kidney failure, unspecified - Unspecified cirrhosis of liver - Secondary esophageal varices without bleeding - Unspecified viral hepatitis C without hepatic coma - Melena - Portal hypertension - Diaphragmatic hernia without obstruction or gangrene - Disorder of urea cycle metabolism, unspecified - Essential (primary) hypertension - Acute kidney failure, unspecified - Ulcer of penis - Other disorders of plasma-protein metabolism, not elsewhere classified - Acute posthemorrhagic anemia - Rectal polyp - Chronic or unspecified gastric ulcer with hemorrhage - Secondary esophageal varices without bleeding - Gastritis, unspecified, with bleeding - Unspecified cirrhosis of liver - Chronic or unspecified gastric ulcer with hemorrhage - Finding of other drugs of addictive potential in blood - Finding of other drugs of addictive potential in blood - Essential (primary) hypertension [email or web address]
== END 2020-11-16 02:36 | disposition home or self-care (01) ==
LOC: ED 00:16
DX: R06.09 Other forms of dyspnea (principal); K72.10 Chronic hepatic failure without coma; I10 Essential (primary) hypertension; Z87.891 Personal history of nicotine dependence; Z79.899 Other long term (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
CPT/HCPCS: 71045; 80053; 82140; 83880; 84484; 85025; 85610; 85730; 99285-25

== ENCOUNTER 2020-11-19 13:27 | Emergency (ER) | payer OTHER ==
[~2020-11-19] VITALS: Ht 190.5 cm; Wt 100.9 kg
--- OUTSIDE RECORDS SUMMARY | 2020-11-19 13:30 | XMS ---
PreManage Notification: STONE DAVIS Security Scientific Diver Events No recent Security Events currently on file CRITERIA MET - History of Sepsis Dx - [facility] - 2 Visits in 30 Days CARE PROVIDERS SHADY NEVAREZ Emergency Medicine 11/16/2020-Current PHONE: [phone] [place]on has no Care Guidelines for this patient. Care History Medical/Surgical 11/16/2020 [facility] - PATIENT HAS AN APT SCHEDULED WITH DR SPENCER Friday11/23/20 @ 8:20AM. - PATIENT HAS AN ESTABLISHING CARE APT WITH SHADY NEVAREZ 11/28/20 @ 9: 00AM - PLEASE NOTIFY PATIENT OF HIS UPCOMING APTS CASE MANAGEMENT IS NOT ABLE TO GET A HOLD OF PATIENT WITH THE CONTACT NUMBER LISTED. 11/16/2020 [facility] - Patient is currently established with [facility]. If patient is seen in the ED during business hours. Please contact CHWs at [facility]. Care Recommendation: If this patient has had 5 or more Emergency Department visits in the last 12 months.\T\nbsp; Patient will require education on the scope and purpose of the ED as an acute care provider not a Primary Care Provider and should not be utilized for chronic conditions.\T\nbsp; These are guidelines and the provider should exercise clinical judgment when providing care. E.D. VISIT COUNT (12 MO.) [address] [facility] TOTAL 5 NOTE: Visits indicate total known visits. ED/UCC VISIT TRACKING (12 MO.) 11/19/2020 13:27 [facility] [place] TYPE: Emergency COMPLAINT: - LOWER EXTRMITY PAIN 11/16/2020 00:17 [facility] [place] TYPE: Emergency COMPLAINT: - ABDOMINAL PROBLEMS 11/10/2020 14:36 [facility] [place] TYPE: Emergency COMPLAINT: - BLOODY STOOL 08/17/2020 19:16 [facility] [place] TYPE: Emergency COMPLAINT: - FEVER,WEAKNESS DIAGNOSES: - Fever, unspecified - Essential (primary) hypertension - Urinary tract infection, site not specified - Nicotine dependence, unspecified, uncomplicated 03/25/2020 23:59 [facility] [place] TYPE: Emergency COMPLAINT: - CHIN PAIN DIAGNOSES: - Essential (primary) hypertension - Other usp (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 - Cutaneous abscess of [...] potential in blood - Essential (primary) hypertension [email or web address]
[2020-11-19] MEDS ORDERED: OXYCODONE HCL5 MG PO (16:07)
[2020-11-19] MEDS ORDERED: ALDACTONE100 MG PO (16:07)
[2020-11-19] MEDS ORDERED: FUROSEMIDE40 MG PO (16:07)
== END 2020-11-19 16:33 | disposition home or self-care (01) ==
LOC: ED 13:27
DX: N50.89 Other specified disorders of the male genital organs (principal); R60.0 Localized edema; K76.9 Liver disease, unspecified; I10 Essential (primary) hypertension; Z87.891 Personal history of nicotine dependence; Z79.899 Other long term (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
CPT/HCPCS: 80053; 81001; 83735; 85025; 99283

== ENCOUNTER 2020-11-20 01:45 | Emergency (ER) | payer OTHER ==
[~2020-11-20] VITALS: Ht 190.5 cm; Wt 100.7 kg
[~2020-11-20 01:45] MED LIST changes: +ALDACTONE100 MG PO; +FUROSEMIDE40 MG PO; +OXYCODONE HCL5 MG PO
--- OUTSIDE RECORDS SUMMARY | 2020-11-20 01:48 | XMS ---
PreManage Notification: STONE DAVIS Security Illusionist Events No recent Security Events currently on file CRITERIA MET - History of Sepsis Dx - [facility] - 2 Visits in 30 Days CARE PROVIDERS SHADY NEVAREZ Emergency Medicine 11/16/2020-Current PHONE: [phone] [place] has no Care Guidelines for this patient. Care History Medical/Surgical 11/16/2020 [facility] - PATIENT HAS AN APT SCHEDULED WITH DR SPENCER Friday11/23/20 @ 8:20AM. - PATIENT HAS AN ESTABLISHING CARE APT WITH SHADY NEVAREZ 11/28/20 @ 9: 00AM - PLEASE NOTIFY PATIENT OF HIS UPCOMING APTS CASE MANAGEMENT IS NOT ABLE TO GET A HOLD OF PATIENT WITH THE CONTACT NUMBER LISTED. 11/16/2020 [facility] - Patient is currently established with [facility]. If patient is seen in the ED during business hours. Please contact CHWs at [facility]. Care Recommendation: If this patient has had [...] providing care. E.D. VISIT COUNT (12 MO.) [address] [facility] TOTAL 6 NOTE: Visits indicate total known visits. ED/UCC VISIT TRACKING (12 MO.) 11/20/2020 01:46 [facility] [place] TYPE: Emergency COMPLAINT: - STOMACH PAIN 11/19/2020 13:27 [facility] [place] TYPE: Emergency COMPLAINT: - LOWER EXTRMITY PAIN 11/16/2020 00:17 [facility] [place] TYPE: Emergency COMPLAINT: - ABDOMINAL PROBLEMS 11/10/2020 14:36 [facility] [place] TYPE: Emergency COMPLAINT: - BLOODY STOOL 08/17/2020 19:16 [facility] [place] TYPE: Emergency COMPLAINT: - FEVER,WEAKNESS DIAGNOSES: - Fever, unspecified - Essential (primary) hypertension - Urinary tract infection, site not specified - Nicotine dependence, unspecified, uncomplicated 03/25/2020 23:59 [facility] [place] TYPE: Emergency COMPLAINT: - CHIN PAIN DIAGNOSES: - Essential (primary) hypertension - Other residential (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 - Cutaneous abscess of face - Nicotine dependence, unspecified, uncomplicated INPATIENT VISIT TRACKING (12 MO.) 11/10/2020 17:26 [facility] [place] TYPE: Critical Care COMPLAINT: - GI [...] potential in blood - Essential (primary) hypertension [email or web address]
== END 2020-11-20 03:27 | disposition home or self-care (01) ==
LOC: ED 01:45
DX: N50.89 Other specified disorders of the male genital organs (principal); R60.0 Localized edema; K72.10 Chronic hepatic failure without coma; I10 Essential (primary) hypertension; Z87.891 Personal history of nicotine dependence; Z79.899 Other long term (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
CPT/HCPCS: 85025; 99284

== ENCOUNTER 2020-12-08 21:40 | Emergency (ER) | payer OTHER ==
[~2020-12-08] VITALS: Ht 190.5 cm; Wt 93.2 kg
--- OUTSIDE RECORDS SUMMARY | 2020-12-08 21:42 | XMS ---
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 Care History Medical/Surgical 11/16/2020 [facility] - PATIENT HAS AN APT SCHEDULED WITH DR SPENCER Friday11/23/20 @ 8:20AM. - PATIENT HAS AN ESTABLISHING CARE APT WITH SHADY NEVAREZ 11/28/20 @ 9: 00AM - PLEASE NOTIFY PATIENT OF HIS UPCOMING APTS CASE MANAGEMENT IS NOT ABLE TO GET A HOLD OF PATIENT WITH THE CONTACT NUMBER LISTED. 11/16/2020 [facility] - Patient is currently established with [facility]. If patient is seen in the ED during business hours. Please contact CHWs at [facility]. Care Recommendation: If this patient [...] providing care. E.D. VISIT COUNT (12 MO.) [address] [facility] 7 [facility] TOTAL 9 NOTE: Visits indicate total known visits. ED/UCC VISIT TRACKING (12 MO.) 12/08/2020 21:40 [facility] [place] TYPE: Emergency COMPLAINT: - LT ANKLE INJURY [facility]2020 [facility] [place] [facility] DIAGNOSES: - Hepatic failure, unspecified without coma - liver pain - Abdominal Pain - Generalized edema 11/20/2020 06:24 [facility] [place] TYPE: Emergency DIAGNOSES: - Chronic viral hepatitis C - testicle and leg swelling - Other stimulant abuse, uncomplicated - Edema, unspecified - Leg Swelling - Groin Swelling 11/20/2020 01:46 [facility] [place] TYPE: Emergency COMPLAINT: - STOMACH PAIN DIAGNOSES: - Other specified disorders of the male genital organs - Chronic hepatic failure without coma - Personal history of nicotine dependence - Essential (primary) hypertension - Localized edema - Other residential (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 11/19/2020 13:27 [facility] [place] TYPE: Emergency COMPLAINT: - LOWER EXTRMITY PAIN DIAGNOSES: - Other mica miner blasting (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 - Personal history of nicotine dependence - Essential (primary) hypertension - Localized edema - Liver disease, unspecified - Other specified disorders of the male genital organs 11/16/2020 00:17 [facility] [place] TYPE: Emergency COMPLAINT: - ABDOMINAL PROBLEMS DIAGNOSES: - Essential (primary) hypertension - Chronic hepatic failure without coma - Other mica miner blasting (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 - Personal history of nicotine dependence - Other forms of dyspnea 11/10/2020 14:36 [facility] [place] TYPE: Emergency COMPLAINT: - BLOODY STOOL 08/17/2020 19:16 [facility] [place] TYPE: Emergency COMPLAINT: - FEVER,WEAKNESS DIAGNOSES: - Fever, unspecified - Essential (primary) hypertension - Urinary tract infection, site not specified - Nicotine dependence, unspecified, uncomplicated 03/25/2020 23:59 [facility] [place] TYPE: Emergency COMPLAINT: - CHIN PAIN DIAGNOSES: - Essential (primary) hypertension - Other mica miner blasting (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 - Cutaneous abscess of face - Nicotine dependence, unspecified, uncomplicated INPATIENT VISIT TRACKING (12 MO.) 11/25/2020 17:40 [facility] ANIBAL [place]ails TYPE: Neurology DIAGNOSES: - Other ascites - Other stimulant abuse, uncomplicated - Acute posthemorrhagic anemia - Secondary esophageal varices with bleeding - Other cirrhosis of liver - Chronic viral hepatitis C - Unspecified cirrhosis of liver - Esopageal Varices - Unspecified viral hepatitis C without hepatic coma - Spontaneous bacterial peritonitis - Esophageal varices with bleeding - Generalized edema [facility] DIAGNOSES: - Unspecified cirrhosis of liver - Unspecified viral hepatitis C without hepatic coma - Generalized edema - Hepatic failure, unspecified without coma - Other ascites - Spontaneous bacterial peritonitis - Peptic ulcer, site unspecified, unspecified as acute or chronic, without hemorrhage or perforation - Other cirrhosis of liver - Chronic viral hepatitis C 11/10/2020 17:[address] [facility] [place] [...] potential in blood - Essential (primary) hypertension [email or web address]
== END 2020-12-08 23:53 | disposition home or self-care (01) ==
LOC: ED 21:40
DX: S90.02XA Contusion of left ankle, initial encounter (principal); W22.8XXA Striking against or struck by other objects, initial encounter; I10 Essential (primary) hypertension; Z87.891 Personal history of nicotine dependence; Z79.899 Other long term (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
CPT/HCPCS: 73610; 99283-25

== ENCOUNTER 2020-12-30 00:19 | Emergency (ER) | payer OTHER ==
[~2020-12-30] VITALS: Ht 190.5 cm; Wt 93.2 kg
--- OUTSIDE RECORDS SUMMARY | 2020-12-30 00:22 | XMS ---
PreManage Notification: STONE DAVIS Security Philosophy Faculty Member Events No recent Security Events currently on file CRITERIA MET - 6 ED Visits in 6 Months - [facility] - 2 Visits in 30 Days CARE PROVIDERS SHADY NEVAREZ Emergency Medicine 11/16/2020-Current PHONE: [phone] Lashon has no Care Guidelines for this patient. Care History Medical/Surgical 11/16/2020 [facility] - PATIENT HAS AN APT SCHEDULED WITH DR SPENCER MIKE 12/14/20 @ 8:20AM. - PATIENT HAS AN ESTABLISHING CARE APT WITH SHADY NEVAREZ 11/28/20 @ 9: 00AM - PLEASE NOTIFY PATIENT OF HIS UPCOMING APTS CASE MANAGEMENT IS NOT ABLE TO GET A HOLD OF PATIENT WITH THE CONTACT NUMBER LISTED. 11/16/2020 [facility] - Patient is currently established with [facility]. If patient is seen in the ED during business hours. Please contact CHWs at [facility]. Care Recommendation: If this patient has had [...] care. E.D. VISIT COUNT (12 MO.) 2 Amor Moore M.C. 8 RADHA Marie ZaneAustyn TOTAL 10 NOTE: Visits indicate total known visits. ED/UCC VISIT TRACKING (12 MO.) 12/30/2020 00:20 [place] [place] TYPE: Emergency COMPLAINT: - RT LEG PAIN 12/08/2020 21:40 RAD[facility] [place] TYPE: Emergency COMPLAINT: - LT ANKLE INJURY DIAGNOSES: - Contusion of left ankle, initial encounter - Personal history of nicotine dependence - Essential (primary) hypertension - Other chcf (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 - Striking against or struck by other objects, initial encounter [facility]2020 [facility] DIAGNOSES: - Hepatic failure, unspecified without coma - liver pain - Abdominal Pain - Generalized edema 11/20/2020 06:24 [facility] DIAGNOSES: - Chronic viral hepatitis C - testicle and leg swelling - Other stimulant abuse, uncomplicated - Edema, unspecified - Leg Swelling - Groin Swelling 11/20/2020 01:46 RADHA Gill TYPE: Emergency COMPLAINT: - STOMACH PAIN DIAGNOSES: - Other specified disorders of the male genital organs - Chronic hepatic failure without coma - Personal history of nicotine dependence - Essential (primary) hypertension - Localized edema - Other watermelon inspector (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 11/19/2020 13:27 RAD[facility] [place] TYPE: Emergency COMPLAINT: - LOWER EXTRMITY PAIN DIAGNOSES: - Other chcf (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 - Personal history of nicotine dependence - Essential (primary) hypertension - Localized edema - Liver disease, unspecified - Other specified disorders of the male genital organs 11/16/2020 00:17 RAD[facility] [place] TYPE: Emergency COMPLAINT: - ABDOMINAL PROBLEMS DIAGNOSES: - Essential (primary) hypertension - Chronic hepatic failure without coma - Other watermelon inspector (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 - Personal history of [...] DIAGNOSES: - Essential (primary) hypertension - Other chcf (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 - Cutaneous abscess of face - Nicotine dependence, unspecified, uncomplicated INPATIENT VISIT TRACKING (12 MO.) 11/25/2020 17:40 [facility] Jaqui TYPE: Neurology DIAGNOSES: - Other ascites - Other stimulant abuse, uncomplicated - Acute posthemorrhagic anemia - Secondary esophageal varices with bleeding - Other cirrhosis of liver - Chronic viral hepatitis C - Unspecified cirrhosis of liver - Esopageal Varices - Unspecified viral hepatitis C without hepatic coma - Spontaneous bacterial peritonitis - Esophageal varices with bleeding - Generalized edema 11/20/2020 15:57 [facility] Andrew[facility]i [place] TYPE: Medical Surgical DIAGNOSES: - Unspecified cirrhosis of liver - Unspecified viral hepatitis C without hepatic coma - Generalized edema - Hepatic failure, unspecified without coma - Other ascites - Spontaneous bacterial peritonitis - Peptic ulcer, site unspecified, unspecified as acute or chronic, without hemorrhage or perforation - Other cirrhosis of liver - Chronic viral hepatitis C 11/10/2020 17:[address] [facility] [place] TYPE: Critical Care [...] potential in blood - Essential (primary) hypertension [email or web address]
[2020-12-30] MEDS ORDERED: HYDROCODON-ACE1 EA10 PO (01:06)
[2020-12-30] MEDS ORDERED: DOXYCYCLINE HY100 MG PO (01:06)
== END 2020-12-30 01:31 | disposition home or self-care (01) ==
LOC: ED 00:19
DX: S81.801A Unspecified open wound, right lower leg, initial encounter (principal); L08.9 Local infection of the skin and subcutaneous tissue, unspecified; X58.XXXA Exposure to other specified factors, initial encounter; I10 Essential (primary) hypertension; F17.200 Nicotine dependence, unspecified, uncomplicated; Z79.899 Other long term (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
CPT/HCPCS: 99283

== ENCOUNTER 2021-02-04 01:47 | Emergency (ER) | payer OTHER ==
[~2021-02-04 01:47] MED LIST changes: +HYDROCODON-ACE1 EA10 PO
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
[2021-02-04] MEDS ORDERED: DILAUDID2 MG PO (04:52)
== END 2021-02-04 05:15 | disposition home or self-care (01) ==
LOC: ED 01:47
PROC: 0HQ1XZZ Repair Face Skin, External Approach (ICD-10-PCS; principal; 2021-02-04)
DX: S42.114A Nondisplaced fracture of body of scapula, right shoulder, initial encounter for closed fracture (principal); S01.81XA Laceration without foreign body of other part of head, initial encounter; S40.211A Abrasion of right shoulder, initial encounter; S50.311A Abrasion of right elbow, initial encounter; S60.511A Abrasion of right hand, initial encounter; V27.4XXA Motorcycle driver injured in collision with fixed or stationary object in traffic accident, initial encounter; I10 Essential (primary) hypertension; F17.200 Nicotine dependence, unspecified, uncomplicated; Z79.899 Other long term (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
CPT/HCPCS: 12013; 70450; 71260; 72125; 73030; 73080; 73110; 73130; 73560; 73610; 74177; 80053; 81001; 82150; 83690; 85025; 99284-25; G0480; Q9967

== ENCOUNTER 2021-06-12 09:16 | Emergency (ER) | payer OTHER ==
[~2021-06-12] VITALS: Ht 190.5 cm; Wt 86.3 kg
[~2021-06-12 09:16] MED LIST changes: +DILAUDID2 MG PO
== END 2021-06-12 12:00 | disposition home or self-care (01) ==
LOC: ED 09:16
DX: S01.01XA Laceration without foreign body of scalp, initial encounter (principal); S66.911A Strain of unspecified muscle, fascia and tendon at wrist and hand level, right hand, initial encounter; M54.2 Cervicalgia; I10 Essential (primary) hypertension; F17.200 Nicotine dependence, unspecified, uncomplicated; Z79.899 Other long term (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; Z86.19 Personal history of other infectious and parasitic diseases; Y04.0XXA Assault by unarmed brawl or fight, initial encounter
CPT/HCPCS: 70450; 72125; 99284-25

== ENCOUNTER 2021-11-12 22:09 | Emergency (ER) | payer OTHER ==
[~2021-11-12] VITALS: Ht 190.5 cm; Wt 94.6 kg
[2021-11-12] MEDS ORDERED: HYDROCHLOROTH12.5 M1 PO (22:32)
[2021-11-12] MEDS ORDERED: PANTOPRAZOLE SO20 MG PO (22:32)
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
--- NOTE | 2021-11-13 06:36 | EKG ---
[facility] [address] [place], [place] [address] Signed Sinus tachycardia Otherwise normal ECG When compared with ECG of 10-NOV-2020 15:06, No significant change was found Confirmed by BERE ROMERO MD ([id number]) on 11/13/2021 6:36:18 AM Electronically Signed By: BERE ROMERO MD 11/13/21 0636 PATIENT NAME: SUSANSTONE Electrocardiogram DATE OF : 72 PHYSICIAN: BERE ROMERO MD REPORT #: [id number] REPORT IS CONFIDENTIAL AND NOT TO BE RELEASED WITHOUT AUTHORIZATION
== END 2021-11-13 03:13 | disposition home or self-care (01) ==
LOC: ED 22:09
DX: R07.89 Other chest pain (principal); R10.30 Lower abdominal pain, unspecified; E87.6 Hypokalemia; E83.42 Hypomagnesemia; D61.818 Other pancytopenia; I10 Essential (primary) hypertension; F17.200 Nicotine dependence, unspecified, uncomplicated; Z79.899 Other long term (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
CPT/HCPCS: 36415; 71045; 80053; 81001; 83690; 83735; 84484; 85025; 85060; 85379; 93005; 93010; 99285-25; A9270; G0480; J7121

== ENCOUNTER 2021-11-14 01:10 | Emergency (ER) | payer OTHER ==
[~2021-11-14] VITALS: Ht 190.5 cm; Wt 88.2 kg
[~2021-11-14 01:10] MED LIST changes: +HYDROCHLOROTH12.5 M1 PO; +PANTOPRAZOLE SO20 MG PO
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
== END 2021-11-14 01:54 | disposition home or self-care (01) ==
LOC: ED 01:10
DX: T74.11XA Adult physical abuse, confirmed, initial encounter (principal); Y04.8XXA Assault by other bodily force, initial encounter; I10 Essential (primary) hypertension; F17.200 Nicotine dependence, unspecified, uncomplicated; Z79.899 Other long term (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
CPT/HCPCS: 99283; A9270

== ENCOUNTER 2021-11-17 02:36 | Emergency (ER) | payer OTHER ==
[~2021-11-17] VITALS: Ht 190.5 cm; Wt 93.6 kg
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
== END 2021-11-17 05:13 | disposition home or self-care (01) ==
LOC: ED 02:36
DX: N50.811 Right testicular pain (principal); F17.200 Nicotine dependence, unspecified, uncomplicated; I10 Essential (primary) hypertension; Z79.899 Other long term (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
CPT/HCPCS: 76870; 81001; 96374; 99284-25; J1885

== ENCOUNTER 2022-05-27 01:39 | Emergency (ER) | payer OTHER ==
[~2022-05-27] VITALS: Ht 190.5 cm; Wt 93.9 kg
== END 2022-05-27 02:36 | disposition home or self-care (01) ==
LOC: ED 01:39
DX: S39.011A Strain of muscle, fascia and tendon of abdomen, initial encounter (principal); X50.9XXA Other and unspecified overexertion or strenuous movements or postures, initial encounter; I10 Essential (primary) hypertension; F17.200 Nicotine dependence, unspecified, uncomplicated; Z79.899 Other long term (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
CPT/HCPCS: 81001; 87491; 99283

== ENCOUNTER 2022-06-17 09:32 | Emergency (ER) | payer OTHER ==
[~2022-06-17] VITALS: Ht 190.5 cm; Wt 90.8 kg
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
[2022-06-17] MEDS ORDERED: PANTOPRAZOLE SO40 MG PO (12:24)
[2022-06-17] MEDS ORDERED: HYDROCHLOROTH12.5 MG PO (12:24)
== END 2022-06-17 12:40 | disposition home or self-care (01) ==
LOC: ED 09:32
DX: K40.90 Unilateral inguinal hernia, without obstruction or gangrene, not specified as recurrent (principal); I10 Essential (primary) hypertension; F17.200 Nicotine dependence, unspecified, uncomplicated
CPT/HCPCS: 36415; 74177; 80053; 81003; 83690; 85025; 85060; 99284-25; J7030; Q9967

== ENCOUNTER 2022-08-09 12:21 | Emergency (ER) | payer OTHER ==
[~2022-08-09] VITALS: Ht 190.5 cm; Wt 90.7 kg
[~2022-08-09 12:21] MED LIST changes: +HYDROCHLOROTH12.5 MG PO
[2022-08-09] MEDS ORDERED: HYDROCODON-ACE1 EA10 PO (15:40)
[2022-08-09] MEDS ORDERED: ONDANSETRON ODT4 MG PO (15:40)
== END 2022-08-09 15:55 | disposition home or self-care (01) ==
LOC: ED 12:21
DX: K40.90 Unilateral inguinal hernia, without obstruction or gangrene, not specified as recurrent (principal); I10 Essential (primary) hypertension; F17.200 Nicotine dependence, unspecified, uncomplicated; Z79.899 Other long term (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
CPT/HCPCS: 36415; 74177; 80053; 81001; 83690; 85025; 85060; 87088; 96374; 96375; 99284-25; J1885; J2405; Q9967

== ENCOUNTER 2022-08-15 00:38 | Emergency (ER) | payer OTHER ==
[~2022-08-15] VITALS: Ht 190.5 cm; Wt 108.0 kg
[~2022-08-15 00:38] MED LIST changes: +ONDANSETRON ODT4 MG PO
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
[2022-08-15] MEDS ORDERED: CEPHALEXIN500 M1 PO (02:25)
[2022-08-15] MEDS ORDERED: ELIMITE60 GM TOP (02:25)
[2022-08-15] MEDS ORDERED: LASIX20 MG PO (02:25)
== END 2022-08-15 03:16 | disposition home or self-care (01) ==
LOC: ED 00:38
DX: S61.411A Laceration without foreign body of right hand, initial encounter (principal); R60.0 Localized edema; B86 Scabies; L08.9 Local infection of the skin and subcutaneous tissue, unspecified; I10 Essential (primary) hypertension; F17.200 Nicotine dependence, unspecified, uncomplicated; Z23 Encounter for immunization; X58.XXXA Exposure to other specified factors, initial encounter
CPT/HCPCS: 36415; 80053; 81001; 83880; 85025; 85060; 90471; 90715; 99283; A9270

== ENCOUNTER 2022-08-28 11:24 | Emergency (ER) | payer OTHER ==
[~2022-08-28] VITALS: Ht 190.5 cm; Wt 106.4 kg
[~2022-08-28 11:24] MED LIST changes: +CEPHALEXIN500 M1 PO; +ELIMITE60 GM TOP; +LASIX20 MG PO
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
--- NOTE | 2022-08-29 20:43 | EKG ---
[facility] [address] [place] [address] Signed Normal sinus rhythm Normal ECG When compared with ECG of 12-NOV-2021 22:24, No significant change was found Confirmed by Ochoa Gu MD () on 08/29/2022 8:43:19 PM Electronically Signed By: OCHOA GU MD 08/29/222042 PATIENT NAME: SUSANANKURAUBREE CHANG Electrocardiogram DATE OF : 72 PHYSICIAN: OCHOA GU MD REPORT #: [id number] REPORT IS CONFIDENTIAL AND NOT TO BE RELEASED WITHOUT AUTHORIZATION
== END 2022-08-28 14:50 | disposition home or self-care (01) ==
LOC: ED 11:24
DX: F15.10 Other stimulant abuse, uncomplicated (principal); I10 Essential (primary) hypertension; F17.200 Nicotine dependence, unspecified, uncomplicated; Z79.899 Other long term (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; Z20.822 Contact with and (suspected) exposure to COVID-19
CPT/HCPCS: 36415; 70450; 80053; 81001; 84443; 85025; 85060; 87502; 93005; 93010; 99284-25; C9803; U0003

== ENCOUNTER 2022-08-30 09:54 | Emergency (ER) | payer OTHER ==
[~2022-08-30] VITALS: Ht 190.5 cm; Wt 106.4 kg
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
[2022-08-30] MEDS ORDERED: LASIX20 MG PO (13:01)
[2022-08-30] MEDS ORDERED: K-TAB ER20 MEQ PO (13:01)
[2022-08-30] MEDS ORDERED: KRISTALOSE20 GM PO (13:01)
== END 2022-08-30 13:12 | disposition home or self-care (01) ==
LOC: ED 09:54
DX: K76.82 Hepatic encephalopathy (principal); F15.10 Other stimulant abuse, uncomplicated; I10 Essential (primary) hypertension; F17.200 Nicotine dependence, unspecified, uncomplicated
CPT/HCPCS: 36415; 80053; 82140; 85025; 85060; 96374; 99284-25; J1940

== ENCOUNTER 2022-09-16 15:57 | Emergency (ER) | payer OTHER ==
[~2022-09-16] VITALS: Ht 190.5 cm; Wt 101.5 kg
[~2022-09-16 15:57] MED LIST changes: +K-TAB ER20 MEQ PO; +KRISTALOSE20 GM PO
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
[2022-09-16] MEDS ORDERED: PANTOPRAZOLE SO40 MG PO (17:17)
[2022-09-16] MEDS ORDERED: NADOLOL20 MG PO (17:17)
== END 2022-09-16 19:05 | disposition home or self-care (01) ==
LOC: ED 15:57
DX: K40.90 Unilateral inguinal hernia, without obstruction or gangrene, not specified as recurrent (principal); I10 Essential (primary) hypertension; F17.200 Nicotine dependence, unspecified, uncomplicated; Z79.899 Other long term (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
CPT/HCPCS: 36415; 80053; 81001; 83690; 85025; 85060; 96374; 99284-25; J2405

== ENCOUNTER 2022-09-18 03:47 | Emergency (ER) | payer OTHER ==
[~2022-09-18] VITALS: Ht 190.5 cm; Wt 99.8 kg
[~2022-09-18 03:47] MED LIST changes: +NADOLOL20 MG PO
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
== END 2022-09-18 04:28 | disposition home or self-care (01) ==
LOC: ED 03:47
DX: K40.90 Unilateral inguinal hernia, without obstruction or gangrene, not specified as recurrent (principal); I10 Essential (primary) hypertension; F17.200 Nicotine dependence, unspecified, uncomplicated; Z79.899 Other long term (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
CPT/HCPCS: 99283; A9270

== ENCOUNTER 2023-02-22 15:12 | Emergency (ER) | payer OTHER ==
[~2023-02-22] VITALS: Ht 190.5 cm; Wt 96.8 kg
[~2023-02-22 15:12] MED LIST changes: +AMOXICILLIN500 MG PO
--- OUTSIDE RECORDS SUMMARY | 2023-02-22 15:14 | XMS ---
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 - Patient with suicidal and/or homicidal ideations eloped. - Patient eloped with IV in place. Details: PATIENT LWBS CRITERIA MET - 6 ED Visits in 6 Months CARE PROVIDERS -Myriam- Dentist: Language Instructor [facility] PHONE: [phone] HSADY NEVAREZ Emergency Medicine 11/16/2020-Current PHONE: [phone] Lahson has no Care Guidelines for this patient. Care History Medical/Surgical 11/16/2020 [facility] - PATIENT HAS AN APT SCHEDULED WITH DR SPENCER Friday12/14/20 @ 8:20AM. - PATIENT HAS AN ESTABLISHING CARE APT WITH SHADY NEVAREZ 11/28/20 @ 9: 00AM - PLEASE NOTIFY PATIENT OF HIS UPCOMING APTS CASE MANAGEMENT IS NOT ABLE TO GET A HOLD OF PATIENT WITH THE CONTACT NUMBER LISTED. 11/16/2020 [facility] - Patient is currently established with [facility]. If patient is seen in the ED during business hours. Please contact CHWs at [facility]. Care Recommendation: If this patient has [...] care. E.D. VISIT COUNT (12 MO.) 13 [facility]. TOTAL 13 NOTE: Visits indicate total known visits. ED/UCC VISIT TRACKING (12 MO.) 02/22/2023 15:13 [facility] [place] TYPE: Emergency COMPLAINT: - FEET SWELLING, AMMONIA LEVELS UP, LEGS CRAMPING 01/14/2023 14:35 [facility] [place] TYPE: Emergency COMPLAINT: - ABD PAIN DIAGNOSES: - Essential (primary) hypertension - Nicotine dependence, unspecified, uncomplicated - Other buttermaker continuous churn (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 - Unilateral inguinal hernia, without obstruction or gangrene, not specified as recurrent - Upper abdominal pain, unspecified 10/04/2022 21:10 [facility] [place] TYPE: Emergency COMPLAINT: - BLOODY NOSE AND ABD PAIN 09/18/2022 03:[address] [facility] [address] [facility] [place] [place] TYPE: Emergency COMPLAINT: - RT LOWER ABD PAIN DIAGNOSES: - Essential (primary) hypertension - Nicotine dependence, unspecified, uncomplicated - Other skilled nursing (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 - Right lower quadrant pain - Unilateral inguinal hernia, without obstruction or gangrene, not specified as recurrent 09/16/2022 15:57 [facility] [place] TYPE: Emergency COMPLAINT: - ABDOMINAL PAIN DIAGNOSES: - Essential (primary) hypertension - Lower abdominal pain, unspecified - Nicotine dependence, unspecified, uncomplicated - Other skilled nursing (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 - Unilateral inguinal hernia, without obstruction or gangrene, not specified as recurrent 08/30/2022 09:[address] [facility] [place] TYPE: Emergency COMPLAINT: - CONFUSION DIAGNOSES: - Altered mental status, unspecified - Essential (primary) hypertension - Hepatic encephalopathy - Nicotine dependence, unspecified, uncomplicated - Other stimulant abuse, uncomplicated 08/28/2022 11:25 [facility] [place] TYPE: Emergency COMPLAINT: - DON'T FEEL GOOD ALL OVER DIAGNOSES: - Contact with and (suspected) exposure to COVID-19 - Essential (primary) hypertension - Nicotine dependence, unspecified, uncomplicated - Other fatigue - Other skilled nursing (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 - Other stimulant abuse, uncomplicated 08/15/2022 00:38 [facility] [place] TYPE: Emergency COMPLAINT: - LEG SWELLING, HAND LAC DIAGNOSES: - Encounter for immunization - Essential (primary) hypertension - Exposure to other specified factors, initial encounter - Laceration without foreign body of right hand, initial encounter - Local infection of the skin and subcutaneous tissue, unspecified - Localized edema - Nicotine dependence, unspecified, uncomplicated - Scabies 08/09/2022 12:21 [facility] [place] TYPE: Emergency COMPLAINT: - ABD TO SCROTUM PAIN DIAGNOSES: - Essential (primary) hypertension - Lower abdominal pain, unspecified - Nicotine dependence, unspecified, uncomplicated - Other buttermaker continuous churn (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 - Unilateral inguinal hernia, without obstruction or gangrene, not specified as recurrent 06/17/2022 09:32 [facility] [place] TYPE: Emergency COMPLAINT: - LOWER R QUADRANT PAIN DIAGNOSES: - Essential (primary) hypertension - Nicotine dependence, unspecified, uncomplicated - Right lower quadrant pain - Unilateral inguinal hernia, without obstruction or gangrene, not specified as recurrent 05/27/2022 01:40 [facility] [place] TYPE: Emergency COMPLAINT: - ABD PAIN DIAGNOSES: - Essential (primary) hypertension - Nicotine dependence, unspecified, uncomplicated - Other and unspecified overexertion or strenuous movements or postures, initial encounter - Other skilled nursing (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 - Strain of muscle, fascia and tendon of abdomen, initial encounter - Unspecified abdominal pain 03/12/2022 19:11 [facility] [place] TYPE: Emergency COMPLAINT: - MEDICATION REFILL 02/27/2022 14:28 [facility] [place] TYPE: Emergency COMPLAINT: - MED REFILL INPATIENT VISIT TRACKING (12 MO.) 10/04/2022 21:11 [facility] [place] TYPE: Observation COMPLAINT: - HEPATIC ENCEPHALOPATHY DIAGNOSES: - Chronic viral hepatitis C - COVID-19 - Hepatic encephalopathy - Nicotine dependence, unspecified, uncomplicated - Portal hypertension - Unspecified cirrhosis of liver [email or web address]
[2023-02-22] MEDS ORDERED: FUROSEMIDE40 MG PO (15:31)
[2023-02-22] MEDS ORDERED: CONSTULOSE10 GM/15 M PO (15:31)
[2023-02-22 15:46] VITALS: BP 175/77
== END 2023-02-22 15:47 | disposition home or self-care (01) ==
LOC: ED 15:12
DX: K74.60 Unspecified cirrhosis of liver (principal); I10 Essential (primary) hypertension; F17.200 Nicotine dependence, unspecified, uncomplicated; Z79.899 Other long term (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
CPT/HCPCS: 99283

== ENCOUNTER 2023-03-03 23:00 | Emergency (ER) | payer OTHER ==
[~2023-03-03] VITALS: Ht 190.5 cm; Wt 90.7 kg
[~2023-03-03 23:00] MED LIST changes: +CONSTULOSE10 GM/15 M PO
--- OUTSIDE RECORDS SUMMARY | 2023-03-03 23:02 | XMS ---
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 - Patient with suicidal and/or homicidal ideations eloped. - Patient eloped with IV in place. Details: PATIENT LWBS CRITERIA MET - 6 ED Visits in 6 Months - [facility] - 2 Visits in 30 Days CARE PROVIDERS -Myriam- Dentist: Knitted Cloth Examiner [facility] PHONE: [phone] SHADY NEAVREZ Emergency Medicine 11/16/2020-Current PHONE: [phone] Lashon has no Care Guidelines for this patient. Care History Medical/Surgical 11/16/2020 [facility] - PATIENT HAS AN APT SCHEDULED WITH DR JOHANNA LOPEZ 12/14/20 @ 8:20AM. - PATIENT HAS AN ESTABLISHING CARE APT WITH SHADY NEVAREZ 11/28/20 @ 9: 00AM - PLEASE NOTIFY PATIENT OF HIS UPCOMING APTS CASE MANAGEMENT IS NOT ABLE TO GET A HOLD OF PATIENT WITH THE CONTACT NUMBER LISTED. 11/16/2020 [facility] - Patient is currently established with [facility]. If patient is seen in the ED during business hours. Please contact CHWs at [facility]. Care Recommendation: If this patient has had [...] care. E.D. VISIT COUNT (12 MO.) 13 [facility]. TOTAL 13 NOTE: Visits indicate total known visits. ED/UCC VISIT TRACKING (12 MO.) 03/03/2023 23:00 [facility] [place] TYPE: Emergency COMPLAINT: - LEG SWELLING 02/22/2023 15:13 [facility] [place] TYPE: Emergency COMPLAINT: - FEET SWELLING, AMMONIA LEVELS UP, LEGS CRAMPING DIAGNOSES: - Essential (primary) hypertension - Nicotine dependence, unspecified, uncomplicated - Other watermaster (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 - Other specified soft tissue disorders - Unspecified cirrhosis of liver 01/14/2023 14:35 [facility] [place] TYPE: Emergency COMPLAINT: - ABD PAIN DIAGNOSES: - Essential (primary) hypertension - Nicotine dependence, unspecified, uncomplicated - Other long-term (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 - Unilateral inguinal hernia, without obstruction or gangrene, not specified as recurrent - Upper abdominal pain, unspecified 10/04/2022 21:10 [facility] [place] TYPE: Emergency COMPLAINT: - BLOODY NOSE AND ABD PAIN 09/18/2022 03:47 [facility] [place] TYPE: Emergency COMPLAINT: - RT LOWER ABD PAIN DIAGNOSES: - Essential (primary) hypertension - Nicotine dependence, unspecified, uncomplicated - Other long-term (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 - Right lower quadrant pain - Unilateral inguinal hernia, without obstruction or gangrene, not specified as recurrent 09/16/2022 15:[address] [facility] [place] TYPE: Emergency COMPLAINT: - ABDOMINAL PAIN DIAGNOSES: - Essential (primary) hypertension - Lower abdominal pain, unspecified - Nicotine dependence, unspecified, uncomplicated - Other watermaster (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 - Unilateral inguinal hernia, without obstruction or gangrene, not specified as recurrent 08/30/2022 09:55 [facility] [place] TYPE: Emergency [...] unspecified, uncomplicated - Other fatigue - Other long-term (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 - Other stimulant abuse, [...] - Nicotine dependence, unspecified, uncomplicated - Other watermaster (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 - Unilateral inguinal hernia, [...] movements or postures, initial encounter - Other watermaster (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 - Strain of muscle, fascia and tendon of abdomen, initial encounter - Unspecified abdominal pain 03/12/2022 19:11 [facility] [place] TYPE: Emergency COMPLAINT: - MEDICATION REFILL INPATIENT VISIT TRACKING (12 MO.) 10/04/2022 21:11 [facility] [place] TYPE: Observation COMPLAINT: - HEPATIC ENCEPHALOPATHY DIAGNOSES: - Chronic viral hepatitis C - COVID-19 - Hepatic encephalopathy - Nicotine dependence, unspecified, uncomplicated - Portal hypertension - Unspecified cirrhosis of liver [id number]
[2023-03-03] MEDS ORDERED: NADOLOL20 MG PO (23:16)
[2023-03-03] MEDS ORDERED: HYDROCHLOROTH12.5 MG PO (23:16)
[2023-03-03] MEDS ORDERED: SPIRONOLACTONE100 MG NG (23:16)
[2023-03-04 00:52] LABS: HEMOGLOBIN 10.9 g/dL (12.0-18.0)
[2023-03-04 00:54] LABS: EOSINOPHILS 1.3 % (0-6); HEMATOCRIT 32.5 % (35.0-50.0); LYMPHOCYTES 19.8 % (24-44); MCHC 33.7 g/dl (30-36); MCV 86.1 fl (81-99); MONOCYTES 8.3 % (0-12); NEUTROPHILS 69.6 % (39-80); RBC 3.77 M/ul (4.3-5.7); RDW 15.6 (10.5-15.0)
[2023-03-04 01:06] LABS: PLATELET COUNT 76 K/uL (140-440)
[2023-03-04 01:07] LABS: ALBUMIN 2.6 g/dL (3.4-5.0); ALBUMIN/GLOBULIN RATIO 0.63 (1.1-2.4); BILIRUBIN, TOTAL 1.1 ng/dL (0.2-1.0); BUN/CREATININE RATIO 11.2 (6.0-28.6); CALCIUM 8.7 mg/dL (8.5-10.1); CREATININE, SERUM 1.16 mg/dL (0.70-1.30); PROTEIN, TOTAL 6.7 g/dL (6.4-8.2)
[2023-03-04 01:48] LABS: BILIRUBIN, URINE NEGATIVE (negative); BLOOD/HGB, URINE SMALL (Negative); KETONE, URINE NEGATIVE (Negative); LEUK ESTERASE, URINE NEGATIVE (negative); NITRITE, URINE NEGATIVE (negative)
[2023-03-04 02:03] LABS: EPITHELIAL CELLS, URINE SQUAMOUS 1+ /lpf (0-1+)
[2023-03-04 02:04] LABS: BACTERIA, URINE RARE /hpf (negative); CASTS, URINE NONE SEEN \\lpf; CRYSTALS, URINE NONE SEEN (0-1+); REFLEX CULTURE, URINE No (No)
[2023-03-04 04:13] VITALS: BP 158/98
[2023-03-05] MEDS ORDERED: AMOX TR-K CLV1 EAC1 PO (20:35)
== END 2023-03-04 04:00 | disposition home or self-care (01) ==
LOC: ED 23:00
PROVIDERS: Emergency Medicine
DX: K40.90 Unilateral inguinal hernia, without obstruction or gangrene, not specified as recurrent (principal); B19.20 Unspecified viral hepatitis C without hepatic coma; D69.6 Thrombocytopenia, unspecified; I10 Essential (primary) hypertension; F17.200 Nicotine dependence, unspecified, uncomplicated; Z79.899 Other long term (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
CPT/HCPCS: 36415; 74177; 80053; 81001; 85025; 99284-25; J1885; J7030; Q9967

== ENCOUNTER 2023-04-01 15:25 | Observation (INO) | payer OTHER ==
[~2023-04-01] VITALS: Ht 190.5 cm; Wt 88.1 kg
[~2023-04-01 15:25] MED LIST changes: +AMOX TR-K CLV1 EAC1 PO; +SPIRONOLACTONE100 MG NG
--- OUTSIDE RECORDS SUMMARY | 2023-04-01 15:28 | XMS ---
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 - Patient with suicidal and/or homicidal ideations eloped. - Patient eloped with IV in place. Details: PATIENT LWBS CRITERIA MET - 6 ED Visits in 6 Months - [facility] - 2 Visits in 30 Days CARE PROVIDERS SHADY NEVAREZ Emergency Medicine 11/16/2020-Current PHONE: [phone] -Myriam- Dentist: Animal Therapist [facility] PHONE: [phone] Lashon has no Care Guidelines for this patient. Care History Medical/Surgical 11/16/2020 [facility] - PATIENT HAS AN APT SCHEDULED WITH DR JOHANNA LOPEZ 12/14/20 @ 8:20AM. - PATIENT HAS AN ESTABLISHING CARE APT WITH SHADY NEVAREZ 11/28/20 @ 9: 00AM - PLEASE NOTIFY PATIENT OF HIS UPCOMING APTS CASE MANAGEMENT IS NOT ABLE TO GET A HOLD OF PATIENT WITH THE CONTACT NUMBER LISTED. 11/16/2020 [facility] - Patient is currently established with [facility]. If patient is seen in the ED during business hours. Please contact CHWs at [facility]. Care Recommendation: If this patient [...] providing care. E.D. VISIT COUNT (12 MO.) 14 [facility]. TOTAL 14 NOTE: Visits indicate total known visits. ED/UCC VISIT TRACKING (12 MO.) 04/01/2023 15:26 [facility] [place] TYPE: Emergency COMPLAINT: - ABDOMINAL PAIN 03/05/2023 18:49 [facility] [place] TYPE: Emergency COMPLAINT: - LT LEG SWELLING DIAGNOSES: - Cellulitis of left lower limb - Essential (primary) hypertension - Nicotine dependence, unspecified, uncomplicated - Other terminal operator (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 - Pain in left lower leg 03/03/2023 23:00 [facility] [place] TYPE: Emergency COMPLAINT: - LEG SWELLING DIAGNOSES: - Essential (primary) hypertension - Nicotine dependence, unspecified, uncomplicated - Other terminal operator (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 - Thrombocytopenia, unspecified - Unilateral inguinal hernia, without obstruction or gangrene, not specified as recurrent - Unspecified viral hepatitis C without hepatic coma 02/22/2023 15:13 [facility] [place] TYPE: Emergency COMPLAINT: - FEET SWELLING, AMMONIA LEVELS UP, LEGS CRAMPING DIAGNOSES: - Essential (primary) hypertension - Nicotine dependence, unspecified, uncomplicated - Other terminal operator (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 - Other specified soft tissue disorders - Unspecified cirrhosis of liver 01/14/2023 14:35 [facility] [place] TYPE: Emergency COMPLAINT: - ABD PAIN DIAGNOSES: - Essential (primary) hypertension - Nicotine dependence, unspecified, uncomplicated - Other half-way (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 - Unilateral inguinal hernia, without obstruction or gangrene, not specified as recurrent - Upper abdominal pain, unspecified 10/04/2022 21:10 [facility] [place] TYPE: Emergency COMPLAINT: - BLOODY NOSE AND ABD PAIN 09/18/2022 03:47 [facility] [place] TYPE: Emergency COMPLAINT: - RT LOWER ABD PAIN DIAGNOSES: - Essential (primary) hypertension - Nicotine dependence, unspecified, uncomplicated - Other terminal operator (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 - Right lower quadrant pain - Unilateral inguinal hernia, without obstruction or gangrene, not specified as recurrent 09/16/2022 15:57 [facility] [place] TYPE: Emergency COMPLAINT: - ABDOMINAL PAIN DIAGNOSES: - Essential (primary) hypertension - Lower abdominal pain, unspecified - Nicotine dependence, unspecified, uncomplicated - Other half-way (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 - Unilateral inguinal hernia, [...] unspecified, uncomplicated - Other fatigue - Other half-way (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 - Other stimulant abuse, [...] - Nicotine dependence, unspecified, uncomplicated - Other half-way (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 - Unilateral inguinal hernia, without obstruction or gangrene, not specified as recurrent 06/17/2022 09:32 [facility] [place] TYPE: Emergency [...] movements or postures, initial encounter - Other terminal operator (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 - Strain of muscle, fascia and tendon of abdomen, initial encounter - Unspecified abdominal pain INPATIENT VISIT TRACKING (12 MO.) 10/04/2022 21:11 [facility] [place] TYPE: Observation COMPLAINT: - HEPATIC ENCEPHALOPATHY DIAGNOSES: - Chronic viral hepatitis C - COVID-19 - Hepatic encephalopathy - Nicotine dependence, unspecified, uncomplicated - Portal hypertension - Unspecified cirrhosis of liver [email or web address]
[2023-04-01 16:26] LABS: RBC 4.54 M/ul (4.3-5.7)
[2023-04-01 16:28] LABS: BASOPHILS 0.8 % (0-2); EOSINOPHILS 3.5 % (0-6); HEMATOCRIT 39.2 % (35.0-50.0); HEMOGLOBIN 13.3 g/dL (12.0-18.0); LYMPHOCYTES 34.8 % (24-44); MCH 29.4 (27-36); MCV 86.5 fl (81-99); NEUTROPHILS 49.9 % (39-80); PLATELET COUNT 85 K/uL (140-440); RDW 16.5 (10.5-15.0)
[2023-04-01 16:47] LABS: ALBUMIN 2.9 g/dL (3.4-5.0); ALBUMIN/GLOBULIN RATIO 0.57 (1.1-2.4); ALCOHOL, MEDICAL <3 ng/dL (<3); ALKALINE PHOSPHATASE 95 U/L (46-116); ALT (SGPT) 71 U/L (14-59); ANION GAP 11.7 (7-21); AST (SGOT) 86 U/L (15-37); BILIRUBIN, TOTAL 1.2 ng/dL (0.2-1.0); BUN/CREATININE RATIO 14.97 (6.0-28.6); CALCIUM 8.9 mg/dL (8.5-10.1); CARBON DIOXIDE 25 mmol/L (21-32); CHLORIDE 106 mmol/L (98-107); CREATININE, SERUM 1.87 mg/dL (0.70-1.30); GLOMERULAR FILTRATION RATE,EST 43 mL/min (>60); POTASSIUM 5.7 mmol/L (3.5-5.1); UREA NITROGEN 28 mg/dL (7-18)
[2023-04-01 18:25] LABS: BILIRUBIN, URINE NEGATIVE (negative); BLOOD/HGB, URINE NEGATIVE (Negative); KETONE, URINE NEGATIVE (Negative); LEUK ESTERASE, URINE NEGATIVE (negative); NITRITE, URINE NEGATIVE (negative)
[2023-04-01 18:32] LABS: AMPHETAMINES, UR NEGATIVE (NEGATIVE); BARBITURATES, UR NEGATIVE (NEGATIVE); BENZODIAZEPINES, UR NEGATIVE (NEGATIVE); BUPRENORPHINE,UR NEGATIVE (NEGATIVE); COCAINE, UR NEGATIVE (NEGATIVE); MARIJUANA (THC), UR NEGATIVE (NEGATIVE); MDMA, UR NEGATIVE (NEGATIVE); METHADONE, UR NEGATIVE (NEGATIVE); METHAMPHETAMINE, UR NEGATIVE (NEGATIVE); OPIATES, UR NEGATIVE (NEGATIVE); OXYCODONE, UR NEGATIVE (NEGATIVE); PHENCYCLIDINE, UR NEGATIVE (NEGATIVE); TRICYCLIC ANTIDEPRESSANT, UR NEGATIVE (NEGATIVE)
[2023-04-01 20:47] VITALS: BP 154/81
--- NOTE | 2023-04-01 20:47 | NUR ---
pt ARRIVED TO [facility] FLOOR, BROUGHT BY ED ARISTEO SHEN. pt AWAKE AND RESTING IN BED, UP SBA TO VOID, VOIDED 300MLS AND BACK IN BED. pt STEADY ON FEET FOR THE MOST PART, BUT CAN SWAY, FWW BROUGHT TO ROOM FOR ADDITIONAL SUPPORT. pt A/O TO SELF, PLACE, BUT UNSURE OF THE EXACT DATE, KNEW IT WAS . pt EDUCATED ON POC AND BED ALARM PLACED FOR SAFETY. AWAITING DENTAL BILLER TO COMPELTE IMAGING BEFORE pt GIVEN FOOD/ADMINISTER EVENING MEDS. WILL MONITOR. CALL LIGHT IN REACH.
--- NOTE | 2023-04-01 21:57 | NUR ---
ULTRA SOUND COMPLETE, PT REQUESTED AND RECEIVED LUNCH BOX, FRESH ICE WATER, REMOTE FOR TV. EDUCATED ON IV IN RAC
--- NOTE | 2023-04-02 | NUR ---
BED ALARMING. PATIENT GOT UP SITTING AT THE EDGE OF THE BED. SBA PATIENT USED THE BATHROOM USING/HOLDING THE IV POLE. PATIENT VOIDED 200 IN THE HAT AND MOSTLY URINATED DIRECTLY TO THE TOILET BOWL. PATIENT IS BACK IN BED. WARM BLANKET PROVIDED. SHOWED THE CALL LIGHT TO USE IT WHEN NEED TO GET UP OR NEED SOMETHING. BED ALARM ON FOR SAFETY.
--- NOTE | 2023-04-02 00:14 | NUR ---
pt RESTING IN BED WITH EYES CLOSED, ON RA. RR EVEN AND UNLABORED. NO DISTRESS NOTED. IV FLUIDS INFUSING DIRECTED. BED ALARM ON FOR SAFETY AND CALL LIGHT IN REACH. WILL MONITOR FOR CHANGES.
[2023-04-02 01:01] VITALS: BP 127/79
--- NOTE | 2023-04-02 01:02 | NUR ---
ROUNED ON pt, pt AWAKE AND ASKING FOR FRESH ICE WATER. pt SPILLED PREVIOUS WATER ON FLOOR. VSS, I&O'S COLLECTED. IV SITE WNL, FLUIDS INFUSING DIRECTED. NO ADDITIONAL NEEDS OR CONCERNS VERBALIZED. CALL LIGHT IN REACH. BED ALARM REMAINS ON FOR SAFETY.
[2023-04-02 05:04] VITALS: BP 126/70
--- NOTE | 2023-04-02 05:08 | NUR ---
VS AND I&O'S COLLECTED, NEW BAG IV FLUIDS INFUING DIRECTED. IV SITE WNL. LAB IN ROOM FOR AM LAB DRAWS. CALL LIGHT IN REACH, BED ALARM REMAISN ON FOR SAFETY. FRESH ICE WATER PROVIDED. NO ADDITIONAL NEEDS OR CONCERNS VERBALIZED WHEN ASKED.
[2023-04-02 05:39] LABS: BASOPHILS 1.4 % (0-2); EOSINOPHILS 3.9 % (0-6); HEMATOCRIT 36.7 % (35.0-50.0); HEMOGLOBIN 12.5 g/dL (12.0-18.0); LYMPHOCYTES 38.5 % (24-44); MCH 29.6 (27-36); MCHC 34.1 g/dl (30-36); MCV 86.8 fl (81-99); MONOCYTES 11.5 % (0-12); NEUTROPHILS 44.7 % (39-80); PLATELET COUNT 68 K/uL (140-440); RBC 4.22 M/ul (4.3-5.7); RDW 16.2 (10.5-15.0)
[2023-04-02 05:55] LABS: ALBUMIN 2.5 g/dL (3.4-5.0); ALBUMIN/GLOBULIN RATIO 0.54 (1.1-2.4); BILIRUBIN, TOTAL 1.1 ng/dL (0.2-1.0); BUN/CREATININE RATIO 15.13 (6.0-28.6); CALCIUM 8.7 mg/dL (8.5-10.1); CREATININE, SERUM 1.52 mg/dL (0.70-1.30); MAGNESIUM 1.9 mg/dL (1.8-2.4); PROTEIN, TOTAL 7.1 g/dL (6.4-8.2)
--- NOTE | 2023-04-02 07:20 | NUR ---
REPORT RECEIVED FROM ARISTEO PEREA. PT UP IN RECLINER WITH BLE ELEVATED. NO NEEDS IDENTIFIED AT THIS TIME. CALL LIGHT IN REACH.
--- NOTE | 2023-04-02 07:49 | NUR ---
IN TO ANSWER CALL LIGHT. PT REQUESTING TO GO BACK TO BED. SBA WITH FWW FROM RECLINER TO BED. PT LAYING IN BED. PT DENIES ANY OTHER NEEDS AT THIS TIME. CALL LIGHT IN REACH. BED ALARM ON.
--- NOTE | 2023-04-02 08:02 | EKG ---
[facility] [address] [place] [address] Signed Sinus bradycardia Otherwise normal ECG When compared with ECG of 28-AUG-2022 14:08, Vent. rate has decreased BY 36 BPM Inverted T waves have replaced nonspecific T wave abnormality in Anterior leads Confirmed by LEXI GARZA MD ([id number]) on 04/02/2023 8:02:38 AM Electronically Signed By: LEXI GARZA 04/02/23 0802 PATIENT NAME: SUSANSTONE Electrocardiogram DATE OF : 72 PHYSICIAN: LEXI GARZA REPORT #: [id number] REPORT IS CONFIDENTIAL AND NOT TO BE RELEASED WITHOUT AUTHORIZATION
[2023-04-02 09:19] VITALS: BP 132/70
--- NOTE | 2023-04-02 09:29 | NUR ---
IN TO ADMINISTER MEDICATION, SEE MAR. PT TAKES MEDICATION WITH NO ISSUES. ASSESSMENT COMPLETE. LUNG SOUNDS CLEAR. BOWEL TONES ACTIVE. PT REPORTS PAINFUL/TENDERNESS TO RLQ WITH PALPATION. PT STATES "WHERE MY HERNIA IS." PT A&O TO SELF AND PLACE. ASKED PT WHAT THE DATE IS AND PT STATES "THE ." ASKED PT WHAT MONTH IT IS AND PT STATES "." ASKED PT WHAT YEAR IT IS AND PT STATES "2022." INFORMED PT IT IS THE . CMS INTACT. PT DENIES ANY OTHER NEEDS AT THIS TIME. CALL LIGHT IN REACH.
--- NOTE | 2023-04-02 09:50 | NUR ---
HAD A DICUSSION WITH ABOUT TREATMENT FOR HEPATITIS C. DR. GARZA WOULD LIKE TO START TREATMENT ON THE PATIENT SOON POSSIBLE. ONLINE IT SHOWS THAT [employer] WILL COVER COST FOR TREAMENT. CHRISTIAN TRIED TO FIND MORE INFORMATION FROM [facility] ABOUT TREATMENT AND [facility] WEB SITE WAS BLOCKED. CHRISTIAN ALSO CALLED [employer] STACIA BOWEN AND YOVANI VAZQUEZ AND COUD NOT GET THROUGH TO SPEAK TO EITHER PERSON. PLANS TO START TREATMENT ON THE PATIENT FOR HEP.C.
--- NOTE | 2023-04-02 10:12 | NUR ---
ENTERED PATIENT'S ROOM AND PATIENT WAS SLEEPING. WILL RETURN LATER TO DO THE PATIENT'S DISCHARGE ASSESSMENT.
--- NOTE | 2023-04-02 11:01 | NUR ---
PT RESTING IN BED ON RIGHT SIDE. EYES CLOSED. RR EVEN AND UNLABORED. NO NEEDS IDENTIFIED AT THIS TIME. CALL LIGHT IN REACH. BED ALARM ON.
--- NOTE | 2023-04-02 11:52 | NUR ---
IN TO HANG NEW BAG OF FLUIDS, SEE MAR. PT REQUESTING TO HAVE SHOWER. HEATHER ARITA TO HELP PT WITH SHOWER. PT SL AT THIS TIME FOR SHOWER. NO OTHER NEEDS FROM THIS RN AT THIS TIME.
--- NOTE | 2023-04-02 12:24 | NUR ---
SPOKE TO PATIENT ABOUT HIS DISCHARGE PLAN.PATIENT IS DISABILED AND UNEMPOLYED. PATIENT GETS FOOD STAMPS AND HIS MOTHER PROVIDES HOUSING. PATIENT CAN DRIVE NEEDED TO MD APPOINTMENTS. PATIENT OCCAS. USES A WALKER. PATIENT HAS HEP.C AND DR. GARZA WILL BE TALKING TO THE PATIENT ABOUT TREATMENT. PATIENT HAS STAIRS IN HIS HOUSE AND HAS NO TROUBLE GOING UP OR DOWN. PATIENT CAN DO THIS OWN ADLS. PATIENT'S MOTHER HELPS OUT NEEDED. PATIENT DOES HAVE A PCP AND IS ENCOURAGED TO MAKE SURE TO GO TO ALL SCHEDULED APPOINTMENTS. THE DAIRY CLERK WILL MONITOR THE PATIENT'S NEEDS CLOSELY TO HELP OUT IF NEEDED.PATIENT CAN NOT THINK OF ANY OTHER ISSUES AT THIS TIME THAT DAIRY CLERK CAN HELP WITH. PATIENT PLANS TO GO HOME WHERE HE LIVES WITH HIS MOTHER WHEN DISCHARGE.
[2023-04-02] MEDS ORDERED: SPIRONOLACTONE100 MG NG ×2 (13:07)
[2023-04-02] MEDS ORDERED: NADOLOL20 MG PO ×2 (13:07)
[2023-04-02] MEDS ORDERED: K-TAB ER20 MEQ PO ×2 (13:08)
[2023-04-02] MEDS ORDERED: FUROSEMIDE40 MG PO ×2 (13:08)
[2023-04-02] MEDS ORDERED: HYDROCHLOROTH12.5 MG PO ×2 (13:08)
[2023-04-02] MEDS ORDERED: LACTULOSE20 GM/30 M PO ×2 (13:08)
[2023-04-02] MEDS ORDERED: PANTOPRAZOLE SO40 MG PO ×2 (13:09)
--- NOTE | 2023-04-02 13:35 | NUR ---
IV TAKEN OUT UPON RN REQUEST. CATH INTACT AND LOOKED GOOD, RN NOTIFIED.
--- NOTE | 2023-04-02 13:43 | NUR ---
PT DENIED NEEDS. CONSENTED TO PRAYER. PRAYED FOR HEALING AND ONGOING BLESSING.
--- NOTE | 2023-04-02 13:51 | NUR ---
VERBAL AND WRITTEN DISCHARGE INSTRUCTIONS GIVEN TO PATIENT, PATIENT VERBALZIED UNDERSTANDING WITH NO FURTHER QUESTIONS.
--- NOTE | 2023-04-02 15:14 | NUR ---
IN TO ADMINISTER MEDICATION, SEE MAR. PT AMBULATING ROOM AND TAKES MEDICATION WITH NO ISSUES. PT ASKING WHEN PT CAN LEAVE. INFOMRED PT WE ARE WAITING ON PHARMACY PHARMACY IS WORKING ON PRESCRIPTION. PT STATES "I HAVE BEEN WAITING THE LAST TWO HOURS, CAN'T I JUST GO AND COME BACK TO GET IT." INFORMED PT THAT PT HAS TO WAIT FOR PHARMACY.
[2023-04-02] MEDS ORDERED: MAVYRET 100-401 EACH PO ×2 (15:28)
--- NOTE | 2023-04-02 15:36 | NUR ---
Pt left without prescription, states wanting to leave prior to receiving it. Staff attempted to deter patient, pt leaves.
[2023-04-03] MEDS ORDERED: XIFAXAN550 MG PO ×2 (06:46)
[2023-04-03 11:38] LABS: HEPATITIS A ANTIBODY, IGM Negative (Negative); HEPATITIS B CORE ANTIBODY, IGM Negative (Negative); HEPATITIS B SURFACE ANTIGEN Negative (Negative); HEPATITIS C AB CIA INTERP High Pos (Negative); HEPATITIS C ANTIBODY CIA INDEX >11.00 IV (())
[2023-04-04 15:07] LABS: HCV QNT BY NAAT (LOG IU/ML) 6.09 (()); HCV QNT BY NAAT INTERP Detected (Not Detected)
== END 2023-04-02 15:40 | disposition home or self-care (01) ==
LOC: ED 15:25 → MS 15:27 → ED 15:27 → MS 19:51 → DSVR 04-04 15:19 → MS 04-04 15:23 → DSVR 04-04 15:23
PROVIDERS: Family Medicine; ADMIT Internal Medicine; ATTEND Internal Medicine
DX: B19.20 Unspecified viral hepatitis C without hepatic coma (principal); R41.82 Altered mental status, unspecified; I10 Essential (primary) hypertension; E87.5 Hyperkalemia; K76.82 Hepatic encephalopathy
CPT/HCPCS: 36415; 71045; 74177; 76700; 80053; 80074; 81003; 82140; 83735; 84484; 85025; 93005; 93010; 99285-25; G0378; G0480; J7121; Q9967

== ENCOUNTER 2023-04-03 05:00 | Emergency (ER) | payer OTHER ==
[~2023-04-03] VITALS: Ht 190.5 cm; Wt 88.1 kg
[~2023-04-03 05:00] MED LIST changes: +MAVYRET 100-401 EACH PO
--- OUTSIDE RECORDS SUMMARY | 2023-04-03 05:02 | XMS ---
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 02/27/2022 14:28 - Patient eloped before treatment completed. - Patient with suicidal and/or homicidal ideations eloped. - Patient eloped with IV in place. Details: PATIENT LWBS CRITERIA MET - 6 ED Visits in 6 Months - [facility] - 2 Visits in 30 Days CARE PROVIDERS SHADY NEVAREZ Emergency Medicine 11/16/2020-Current PHONE: [phone] -Myriam- Dentist: Electrocardiograph Operator [facility] PHONE: [phone] Lashon has no Care Guidelines for this patient. Care History Medical/Surgical 11/16/2020 [facility] - PATIENT HAS AN APT SCHEDULED WITH DR JOHANNA LOPEZ 12/14/20 @ 8:20AM. - PATIENT HAS AN ESTABLISHING CARE APT WITH SHADY NEVAREZ 11/28/20 @ 9: 00AM - PLEASE NOTIFY PATIENT OF HIS UPCOMING APTS CASE MANAGEMENT IS NOT ABLE TO GET A HOLD OF PATIENT WITH THE CONTACT NUMBER LISTED. 11/16/2020 [facility] - Patient is currently established with [facility]. If patient is seen in the ED during business hours. Please contact CHWs at [facility]. Care Recommendation: If this patient has [...] providing care. E.D. VISIT COUNT (12 MO.) 15 [facility] TOTAL 15 NOTE: Visits indicate total known visits. ED/UCC VISIT TRACKING (12 MO.) 04/03/2023 05:00 [facility] [place] TYPE: Emergency COMPLAINT: - VOMITING 04/01/2023 15:26 [facility] [place] TYPE: Emergency COMPLAINT: - ABDOMINAL PAIN 03/05/2023 18:49 [facility] [place] TYPE: Emergency COMPLAINT: - LT LEG SWELLING DIAGNOSES: - Cellulitis of left lower limb - Essential (primary) hypertension - Nicotine dependence, unspecified, uncomplicated - Other fpc (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 - Pain in left lower leg 03/03/2023 23:00 [facility] [place] TYPE: Emergency COMPLAINT: - LEG SWELLING DIAGNOSES: - Essential (primary) hypertension - Nicotine dependence, unspecified, uncomplicated - Other longshore equipment operator (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 - Thrombocytopenia, unspecified - Unilateral inguinal hernia, without obstruction or gangrene, not specified as recurrent - Unspecified viral hepatitis C without hepatic coma 02/22/2023 15:13 [facility] [place] TYPE: Emergency COMPLAINT: - FEET SWELLING, AMMONIA LEVELS UP, LEGS CRAMPING DIAGNOSES: - Essential (primary) hypertension - Nicotine dependence, unspecified, uncomplicated - Other fpc (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 - Other specified soft tissue disorders - Unspecified cirrhosis of liver 01/14/2023 14:35 [facility] [place] TYPE: Emergency COMPLAINT: - ABD PAIN DIAGNOSES: - Essential (primary) hypertension - Nicotine dependence, unspecified, uncomplicated - Other fpc (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 - Unilateral inguinal hernia, without obstruction or gangrene, not specified as recurrent - Upper abdominal pain, unspecified 10/04/2022 21:10 [facility] [place] TYPE: Emergency COMPLAINT: - BLOODY NOSE AND ABD PAIN 09/18/2022 03:47 [facility] [place] TYPE: Emergency COMPLAINT: - RT LOWER ABD PAIN DIAGNOSES: - Essential (primary) hypertension - Nicotine dependence, unspecified, uncomplicated - Other fpc (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 - Right lower quadrant pain - Unilateral inguinal hernia, without obstruction or gangrene, not specified as recurrent 09/16/2022 15:57 [facility] [place] TYPE: Emergency COMPLAINT: - ABDOMINAL PAIN DIAGNOSES: - Essential (primary) hypertension - Lower abdominal pain, unspecified - Nicotine dependence, unspecified, uncomplicated - Other fpc (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 - Unilateral inguinal hernia, [...] unspecified, uncomplicated - Other fatigue - 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 [place] TYPE: Observation COMPLAINT: - HEPATIC ENCEPHALOPATHY DIAGNOSES: - Chronic viral hepatitis C - COVID-19 - Hepatic encephalopathy - Nicotine dependence, unspecified, uncomplicated - Portal hypertension - Unspecified cirrhosis of liver [email or web address]
[2023-04-03 05:54] LABS: BASOPHILS 1.5 % (0-2); EOSINOPHILS 2.9 % (0-6); HEMATOCRIT 37.5 % (35.0-50.0); HEMOGLOBIN 12.8 g/dL (12.0-18.0); LYMPHOCYTES 31.9 % (24-44); MCH 29.9 (27-36); MCHC 34.2 g/dl (30-36); MCV 87.4 fl (81-99); MONOCYTES 11.9 % (0-12); NEUTROPHILS 51.8 % (39-80); PLATELET COUNT 75 K/uL (140-440); RBC 4.29 M/ul (4.3-5.7); RDW 16.3 (10.5-15.0)
[2023-04-03 06:14] LABS: ALBUMIN/GLOBULIN RATIO 0.6 (1.1-2.4); ANION GAP 13.6 (7-21); BUN/CREATININE RATIO 15.92 (6.0-28.6); CALCIUM 8.8 mg/dL (8.5-10.1); CREATININE, SERUM 1.57 mg/dL (0.70-1.30); POTASSIUM 4.6 mmol/L (3.5-5.1)
[2023-04-03 06:41] LABS: INR 1.15 (0.80-1.30); PROTIME 14.3 Sec (11.2-14.2)
[2023-04-03] MEDS ORDERED: XIFAXAN550 MG PO (06:46)
[2023-04-03 08:59] VITALS: BP 134/81
[2023-04-04] MEDS ORDERED: POTASSIUM CHLO20 ME2 PO (10:28)
== END 2023-04-03 09:02 | disposition home or self-care (01) ==
LOC: ED 05:00
PROVIDERS: Family Medicine
DX: K76.82 Hepatic encephalopathy (principal); I10 Essential (primary) hypertension; F17.200 Nicotine dependence, unspecified, uncomplicated; Z79.899 Other long term (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
CPT/HCPCS: 36415; 80053; 82140; 85025; 85610; 96374; 96375; 99285-25; J1790; J2405; J7121

== ENCOUNTER 2023-04-04 10:14 | Observation (INO) | payer OTHER ==
[~2023-04-04] VITALS: Ht 190.5 cm; Wt 93.6 kg
[~2023-04-04 10:14] MED LIST changes: +XIFAXAN550 MG PO
--- OUTSIDE RECORDS SUMMARY | 2023-04-04 10:16 | XMS ---
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 - Patient with suicidal and/or homicidal ideations eloped. - Patient eloped with IV in place. Details: PATIENT LWBS CRITERIA MET - 6 ED Visits in 6 Months - [facility] - 2 Visits in 30 Days CARE PROVIDERS SHADY NEVAREZ Emergency Medicine 11/16/2020-Current PHONE: [phone] -Myriam- Dentist: Director Teen Post [facility] PHONE: [phone] Lashon has no Care Guidelines for this patient. Care History Medical/Surgical 11/16/2020 [facility] - PATIENT HAS AN APT SCHEDULED WITH DR JOHANNA LOPEZ 12/14/20 @ 8:20AM. - PATIENT HAS AN ESTABLISHING CARE APT WITH SHADY NEVAREZ 11/28/20 @ 9: 00AM - PLEASE NOTIFY PATIENT OF HIS UPCOMING APTS CASE MANAGEMENT IS NOT ABLE TO GET A HOLD OF PATIENT WITH THE CONTACT NUMBER LISTED. 11/16/2020 [facility] - Patient is currently established with [facility]. If patient is seen in the ED during business hours. Please contact CHWs at [facility]. Care Recommendation: If this patient [...] providing care. E.D. VISIT COUNT (12 MO.) 16 [facility]. TOTAL 16 NOTE: Visits indicate total known visits. ED/UCC VISIT TRACKING (12 MO.) 04/04/2023 10:15 [facility] [place] TYPE: Emergency COMPLAINT: - DIZZINESS 04/03/2023 05:00 [facility] [place] TYPE: Emergency COMPLAINT: - VOMITING 04/01/2023 15:26 [facility] [place] TYPE: Emergency COMPLAINT: - ABDOMINAL PAIN 03/05/2023 18:49 [facility] [place] TYPE: Emergency COMPLAINT: - LT LEG SWELLING DIAGNOSES: - Cellulitis of left lower limb - Essential (primary) hypertension - Nicotine dependence, unspecified, uncomplicated - Other mcc (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 - Pain in left lower leg 03/03/2023 23:[address] [facility] [address] [facility] [place] TYPE: Emergency COMPLAINT: - LEG SWELLING DIAGNOSES: - Essential (primary) hypertension - Nicotine dependence, unspecified, uncomplicated - Other terminal carman (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 - Thrombocytopenia, unspecified - Unilateral inguinal hernia, without obstruction or gangrene, not specified as recurrent - Unspecified viral hepatitis C without hepatic coma 02/22/2023 15:[address] [facility] [address] [facility] [place] TYPE: Emergency COMPLAINT: - FEET SWELLING, AMMONIA LEVELS UP, LEGS CRAMPING DIAGNOSES: - Essential (primary) hypertension - Nicotine dependence, unspecified, uncomplicated - Other terminal carman (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 - Other specified soft tissue disorders - Unspecified cirrhosis of liver [facility]14[facility] COMPLAINT: - ABD PAIN DIAGNOSES: - Essential (primary) hypertension - Nicotine dependence, unspecified, uncomplicated - Other mcc (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 - Unilateral inguinal hernia, without obstruction or gangrene, not specified as recurrent - Upper abdominal pain, unspecified 10/04/2022 21:10 [facility] [place] TYPE: Emergency COMPLAINT: - BLOODY NOSE AND ABD PAIN 09/18/2022 03:47 [facility] [place] TYPE: Emergency COMPLAINT: - RT LOWER ABD PAIN DIAGNOSES: - Essential (primary) hypertension - Nicotine dependence, unspecified, uncomplicated - Other mcc (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 - Right lower quadrant pain - Unilateral inguinal hernia, without obstruction or gangrene, not specified as recurrent 09/16/2022 15:57 [facility] [place] TYPE: Emergency COMPLAINT: - ABDOMINAL PAIN DIAGNOSES: - Essential (primary) hypertension - Lower abdominal pain, unspecified - Nicotine dependence, unspecified, uncomplicated - Other terminal carman (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 - Unilateral inguinal hernia, [...] unspecified, uncomplicated - Other fatigue - Other mcc (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 - Other stimulant abuse, [...] - Nicotine dependence, unspecified, uncomplicated - Other mcc (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 - Unilateral inguinal hernia, [...] or postures, initial encounter - Other terminal carman (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 - Strain of muscle, fascia and tendon of abdomen, initial encounter - Unspecified abdominal pain INPATIENT VISIT TRACKING (12 MO.) 04/01/2023 15:27 [facility] [place] TYPE: Observation COMPLAINT: - HYPERAMMONIA DIAGNOSES: - Altered mental status, unspecified - Essential (primary) hypertension - Hepatic encephalopathy - Hyperkalemia - Unspecified viral hepatitis C without hepatic coma 10/04/2022 21:11 [facility] [place] TYPE: Observation COMPLAINT: - HEPATIC ENCEPHALOPATHY DIAGNOSES: - Chronic viral hepatitis C - COVID-19 - Hepatic encephalopathy - Nicotine dependence, unspecified, uncomplicated - Portal hypertension - Unspecified cirrhosis of liver [email or web address]
[2023-04-04] MEDS ORDERED: POTASSIUM CHLO20 ME2 PO (10:28)
[2023-04-04 10:59] LABS: MCV 86.7 fl (81-99)
[2023-04-04 11:02] LABS: BASOPHILS 1.6 % (0-2); EOSINOPHILS 2.7 % (0-6); HEMATOCRIT 35.7 % (35.0-50.0); HEMOGLOBIN 12.2 g/dL (12.0-18.0); LYMPHOCYTES 22.2 % (24-44); MCH 29.7 (27-36); MCHC 34.2 g/dl (30-36); MONOCYTES 7.9 % (0-12); NEUTROPHILS 65.6 % (39-80); PLATELET COUNT 67 K/uL (140-440); RBC 4.12 M/ul (4.3-5.7); RDW 16.5 (10.5-15.0)
[2023-04-04 11:11] LABS: ALBUMIN 2.9 g/dL (3.4-5.0); ALBUMIN/GLOBULIN RATIO 0.63 (1.1-2.4); ANION GAP 12.6 (7-21); BILIRUBIN, TOTAL 0.9 ng/dL (0.2-1.0); BUN/CREATININE RATIO 15.58 (6.0-28.6); CALCIUM 8.5 mg/dL (8.5-10.1); CREATININE, SERUM 1.54 mg/dL (0.70-1.30); POTASSIUM 4.6 mmol/L (3.5-5.1); PROTEIN, TOTAL 7.5 g/dL (6.4-8.2)
[2023-04-04 11:22] LABS: BILIRUBIN, URINE NEGATIVE (negative); BLOOD/HGB, URINE NEGATIVE (Negative); KETONE, URINE NEGATIVE (Negative); LEUK ESTERASE, URINE NEGATIVE (negative); NITRITE, URINE NEGATIVE (negative)
[2023-04-04 11:26] LABS: AMPHETAMINES, UR NEGATIVE (NEGATIVE); BARBITURATES, UR NEGATIVE (NEGATIVE); BENZODIAZEPINES, UR NEGATIVE (NEGATIVE); MARIJUANA (THC), UR NEGATIVE (NEGATIVE)
[2023-04-04 11:27] LABS: BUPRENORPHINE,UR NEGATIVE (NEGATIVE); COCAINE, UR NEGATIVE (NEGATIVE); MDMA, UR NEGATIVE (NEGATIVE); METHADONE, UR NEGATIVE (NEGATIVE); METHAMPHETAMINE, UR NEGATIVE (NEGATIVE); OPIATES, UR NEGATIVE (NEGATIVE); OXYCODONE, UR NEGATIVE (NEGATIVE); PHENCYCLIDINE, UR NEGATIVE (NEGATIVE); TRICYCLIC ANTIDEPRESSANT, UR NEGATIVE (NEGATIVE)
[2023-04-04 12:22] LABS: INFLUENZA B NAA NEGATIVE (NEGATIVE); RESPIRATORY SYNCYTIAL VIR NAA NEGATIVE (NEGATIVE)
--- NOTE | 2023-04-04 14:05 | NUR ---
MED REC COMPLETE
[2023-04-04 14:48] VITALS: BP 152/80
--- OUTSIDE RECORDS SUMMARY | 2023-04-04 15:03 | XMS ---
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 - Patient with suicidal and/or homicidal ideations eloped. - Patient eloped with IV in place. Details: PATIENT LWBS CRITERIA MET - [facility] - 2 Visits in 30 Days CARE PROVIDERS SHADY NEVAREZ Emergency Medicine 11/16/2020-Current PHONE: [phone] -Myriam- Dentist: Microscopist [facility] PHONE: [phone] Lashon has no Care Guidelines for this patient. Care History Medical/Surgical 11/16/2020 [facility] - PATIENT HAS AN APT SCHEDULED WITH DR SPENCER Friday12/14/20 @ 8:20AM. - PATIENT HAS AN ESTABLISHING CARE APT WITH SHADY NEVAREZ 11/28/20 @ 9: 00AM - PLEASE NOTIFY PATIENT OF HIS UPCOMING APTS CASE MANAGEMENT IS NOT ABLE TO GET A HOLD OF PATIENT WITH THE CONTACT NUMBER LISTED. 11/16/2020 [facility] - Patient is currently established with [facility]. If patient is seen in the ED during business hours. Please contact CHWs at [facility]. Care Recommendation: If this patient has [...] E.D. VISIT COUNT (12 MO.) 16 [facility]. TOTAL 16 NOTE: Visits indicate total known visits. ED/UCC VISIT TRACKING (12 MO.) 04/04/2023 10:[address] [facility] [place] [facility] [place]: Emergency COMPLAINT: - HYPERAMMONIA 04/03/2023 05:[address] [facility] [facility] [place] TYPE: Emergency COMPLAINT: - VOMITING 04/01/2023 15:[address] [facility] [facility] [place] TYPE: Emergency COMPLAINT: - ABDOMINAL PAIN 03/05/2023 18:[address] 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 [place] TYPE: Emergency COMPLAINT: - LEG SWELLING DIAGNOSES: - Essential (primary) hypertension - Nicotine dependence, unspecified, uncomplicated - Other retirement (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 - Thrombocytopenia, unspecified - Unilateral inguinal hernia, without obstruction or gangrene, not specified as recurrent - Unspecified viral hepatitis C without hepatic coma 02/22/2023 15:[address] 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 [place] TYPE: Emergency COMPLAINT: - ABD PAIN DIAGNOSES: - Essential (primary) hypertension - Nicotine dependence, unspecified, uncomplicated - Other retirement (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 - Unilateral inguinal hernia, without obstruction or gangrene, not specified as recurrent - Upper abdominal pain, unspecified 10/04/2022 21:[address] [facility] [place] TYPE: Emergency COMPLAINT: - BLOODY NOSE AND ABD PAIN 09/18/2022 03:[address] [facility] [place] TYPE: Emergency COMPLAINT: - RT LOWER ABD PAIN DIAGNOSES: - Essential (primary) hypertension - Nicotine dependence, unspecified, uncomplicated - Other retirement (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 - Right lower quadrant pain - Unilateral inguinal hernia, without obstruction or gangrene, not specified as recurrent 09/16/2022 15:57 [facility] [place] TYPE: Emergency COMPLAINT: - ABDOMINAL PAIN DIAGNOSES: - Essential (primary) hypertension - Lower abdominal pain, unspecified - Nicotine dependence, unspecified, uncomplicated - Other retirement (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 - Unilateral inguinal hernia, [...] unspecified, uncomplicated - Other fatigue - Other retirement (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 - Other stimulant abuse, [...] - Nicotine dependence, unspecified, uncomplicated - 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 [place] TYPE: Observation COMPLAINT: - HYPERAMMONIA 04/01/2023 15:[address] [facility] [place] TYPE: Observation COMPLAINT: - HYPERAMMONIA DIAGNOSES: - Altered mental status, unspecified - Essential (primary) hypertension - Hepatic encephalopathy - Hyperkalemia - Unspecified viral hepatitis C without hepatic coma 10/04/2022 21:[address] [facility] [place] [facility] [place] TYPE: Observation COMPLAINT: - HEPATIC ENCEPHALOPATHY DIAGNOSES: - Chronic viral hepatitis C - COVID-19 - Hepatic encephalopathy - Nicotine dependence, unspecified, uncomplicated - Portal hypertension - Unspecified cirrhosis of liver [email or web address]
--- NOTE | 2023-04-04 15:38 | NUR ---
PT ADMITTED FROM ER. ADMISSION DELAYED DUE TO OT EVAL. PT ALERT AND ORIENTED. PT ON ROOM AIR, LUNG SOUNDS CLEAR. BOWEL TONES ACTIVE. CMS INTACT, WITHOUT EDEMA. WITHOUT IV ACCESS. PT DENIES NEEDS AT THIS TIME.
--- NOTE | 2023-04-04 15:42 | NUR ---
DR. GARZA IN TO EVALUATE PT. PT REQUESTING TO LEAVE LOUISEAFERNANDO PAPER SIGNED.
== END 2023-04-04 15:44 | disposition left against medical advice (07) ==
LOC: ED 10:14 → MS 10:16 → ED 10:16 → MS 12:17 → ED 14:14 → MS 15:44
PROVIDERS: Emergency Medicine; ADMIT Internal Medicine; ATTEND Internal Medicine
DX: B18.2 Chronic viral hepatitis C (principal); L03.116 Cellulitis of left lower limb; K72.10 Chronic hepatic failure without coma; K74.60 Unspecified cirrhosis of liver; S09.90XA Unspecified injury of head, initial encounter; Y09 Assault by unspecified means; S90.02XA Contusion of left ankle, initial encounter; L03.211 Cellulitis of face; L02.01 Cutaneous abscess of face; K76.82 Hepatic encephalopathy; K52.9 Noninfective gastroenteritis and colitis, unspecified; E87.6 Hypokalemia; K40.90 Unilateral inguinal hernia, without obstruction or gangrene, not specified as recurrent; D61.818 Other pancytopenia; S42.101A Fracture of unspecified part of scapula, right shoulder, initial encounter for closed fracture; N39.0 Urinary tract infection, site not specified; Z53.29 Procedure and treatment not carried out because of patient's decision for other reasons; Z20.822 Contact with and (suspected) exposure to COVID-19
CPT/HCPCS: 36415; 80053; 81003; 82140; 85025; 87502; 99285; C9803; G0378; U0002

== ENCOUNTER 2023-04-04 22:01 | Observation (INO) | payer OTHER ==
[~2023-04-04] VITALS: Ht 190.5 cm; Wt 93.5 kg
[~2023-04-04 22:01] MED LIST changes: +POTASSIUM CHLO20 ME2 PO
--- OUTSIDE RECORDS SUMMARY | 2023-04-04 22:07 | XMS ---
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 - Patient with suicidal and/or homicidal ideations eloped. - Patient eloped with IV in place. Details: PATIENT LWBS CRITERIA MET - 6 ED Visits in 6 Months - [facility] - 2 Visits in 30 Days CARE PROVIDERS SHADY NEVAREZ Emergency Medicine 11/16/2020-Current PHONE: [phone] -Myriam- Dentist: Non Destructive Testing Engineer [facility] PHONE: [phone] Lashon has no Care Guidelines for this [...] Hospital - Patient is currently established with [facility]. If patient is seen in the ED during business hours. Please contact CHWs at [facility]. Care Recommendation: If this patient has [...] providing care. E.D. VISIT COUNT (12 MO.) 17 [facility]. TOTAL 17 NOTE: Visits indicate total known visits. ED/UCC VISIT TRACKING (12 MO.) 04/04/2023 22:03 [facility] [place] [place] TYPE: Emergency COMPLAINT: - LIVER ISSUES 04/04/2023 10:15 [facility] [place] TYPE: Emergency COMPLAINT: - HYPERAMMONIA 04/03/2023 05:[address] [facility] [place] TYPE: Emergency COMPLAINT: - VOMITING 04/01/2023 15:26 [facility] [place] TYPE: Emergency COMPLAINT: - ABDOMINAL PAIN 03/05/2023 18:49 [facility] [place] TYPE: Emergency COMPLAINT: - LT LEG SWELLING DIAGNOSES: - Cellulitis of left lower limb - Essential (primary) hypertension - Nicotine dependence, unspecified, uncomplicated - Other alf (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 - Pain in left lower leg 03/03/2023 23:00 [facility] [place] TYPE: Emergency COMPLAINT: - LEG SWELLING DIAGNOSES: - Essential (primary) hypertension - Nicotine dependence, unspecified, uncomplicated - Other alf (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 - Thrombocytopenia, unspecified - Unilateral inguinal hernia, without obstruction or gangrene, not specified as recurrent - Unspecified viral hepatitis C without hepatic coma 02/22/2023 15:13 [facility] [place] TYPE: Emergency COMPLAINT: - FEET SWELLING, AMMONIA LEVELS UP, LEGS CRAMPING DIAGNOSES: - Essential (primary) hypertension - Nicotine dependence, unspecified, uncomplicated - Other intermediate teacher (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 - Other specified soft tissue disorders - Unspecified cirrhosis of liver 01/14/2023 14:35 [facility] [place] TYPE: Emergency COMPLAINT: - ABD PAIN DIAGNOSES: - Essential (primary) hypertension - Nicotine dependence, unspecified, uncomplicated - Other intermediate teacher (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 - Unilateral inguinal hernia, without obstruction or gangrene, not specified as recurrent - Upper abdominal pain, unspecified 10/04/2022 21:10 [facility] [place] TYPE: Emergency COMPLAINT: - BLOODY NOSE AND ABD PAIN 09/18/2022 03:47 [facility] [place] TYPE: Emergency COMPLAINT: - RT LOWER ABD PAIN DIAGNOSES: - Essential (primary) hypertension - Nicotine dependence, unspecified, uncomplicated - Other alf (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 - Right lower quadrant pain - Unilateral inguinal hernia, without obstruction or gangrene, not specified as recurrent 09/16/2022 15:57 [facility] [place] TYPE: Emergency COMPLAINT: - ABDOMINAL PAIN DIAGNOSES: - Essential (primary) hypertension - Lower abdominal pain, unspecified - Nicotine dependence, unspecified, uncomplicated - Other intermediate teacher (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 - Unilateral inguinal hernia, [...] unspecified, uncomplicated - Other fatigue - Other alf (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 - Other stimulant abuse, [...] - Nicotine dependence, unspecified, uncomplicated - Other alf (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 - Unilateral inguinal hernia, [...] movements or postures, initial encounter - Other alf (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 - Strain of muscle, fascia and tendon of abdomen, initial encounter - Unspecified abdominal pain INPATIENT VISIT TRACKING (12 MO.) 04/04/2023 10:16 [facility] [place] TYPE: Observation COMPLAINT: - HYPERAMMONIA 04/01/2023 15:27 [facility] [place] TYPE: Observation COMPLAINT: - HYPERAMMONIA DIAGNOSES: - Altered mental status, unspecified - Essential (primary) hypertension - Hepatic encephalopathy - Hyperkalemia - Unspecified viral hepatitis C without hepatic coma 10/04/2022 21:11 [facility] [place] TYPE: Observation COMPLAINT: - HEPATIC ENCEPHALOPATHY DIAGNOSES: - Chronic viral hepatitis C - COVID-19 - Hepatic encephalopathy - Nicotine dependence, unspecified, uncomplicated - Portal hypertension - Unspecified cirrhosis of liver [email or web address]
[2023-04-05 00:07] LABS: BASOPHILS 0.9 % (0-2); EOSINOPHILS 2.2 % (0-6); HEMATOCRIT 34.7 % (35.0-50.0); HEMOGLOBIN 11.7 g/dL (12.0-18.0); MCH 29.6 (27-36); MCHC 33.8 g/dl (30-36); MCV 87.5 fl (81-99); MONOCYTES 12.8 % (0-12); NEUTROPHILS 53.1 % (39-80); PLATELET COUNT 67 K/uL (140-440); RBC 3.96 M/ul (4.3-5.7); RDW 16.5 (10.5-15.0)
[2023-04-05 00:18] LABS: INR 1.19 (0.80-1.30); PROTIME 14.6 Sec (11.2-14.2)
[2023-04-05 00:25] LABS: ALBUMIN 2.8 g/dL (3.4-5.0); ALBUMIN/GLOBULIN RATIO 0.62 (1.1-2.4); ANION GAP 13.3 (7-21); BILIRUBIN, TOTAL 0.9 ng/dL (0.2-1.0); BUN/CREATININE RATIO 14.2 (6.0-28.6); CALCIUM 8.8 mg/dL (8.5-10.1); CREATININE, SERUM 1.69 mg/dL (0.70-1.30); POTASSIUM 4.3 mmol/L (3.5-5.1); PROTEIN, TOTAL 7.3 g/dL (6.4-8.2)
[2023-04-05 00:34] VITALS: BP 150/75
--- NOTE | 2023-04-05 01:50 | NUR ---
BI IS TRANFERRED FROM THE ED. REPORT PROVIDED BY ED-RN. BI IS CONFUSED, HE IS ORIENTED TO PLACE AND SELF, WHEN ASKED THE YEAR STATED 2025. UNABLE TO PREFORM SIMPLE MATH (5-3 = 2) PUPILS ARE DILATED, AND HE IS NOT TRACKING WELL, HE IS FORGETFUL, TRIED TO USE THE CALL LIGHT A PHONE. DURING ASSESSMENT HE HAS BEEN PLEASANT AND DOES FOLLOW DIRECTION, NS HANGING @125/H. CALL LIGHT IN REACH AND BED ALARM IS ON.
--- NOTE | 2023-04-05 03:21 | NUR ---
BI IS STILL AWAKE, STATES HE CAN'T SLEEP. CALLING ON THE LIGHT FREQUENTLY, HAS EVERYTHING FROM HIS BEDSIDE TABLE IN THE BED WITH HIM, FIDDLING WITH EVERYTHING. CALL LIGHT IN REACH, TV ON.
--- NOTE | 2023-04-05 04:00 | NUR ---
ASSISTED UP TO THE BR, HAD SMALL SM, BACK TO BED, STILL NOT ABLE TO GO TO SLEEP, ASSESSMENT WITHOUT CHANGE, CALL LIGHT WITHIN REACH, LIGHTS OUT.
[2023-04-05 05:21] LABS: BASOPHILS 1.4 % (0-2); EOSINOPHILS 3.4 % (0-6); HEMATOCRIT 34.7 % (35.0-50.0); LYMPHOCYTES 36.4 % (24-44); MCHC 34.7 g/dl (30-36); MCV 86.2 fl (81-99); MONOCYTES 10.2 % (0-12); NEUTROPHILS 48.6 % (39-80); PLATELET COUNT 62 K/uL (140-440); RBC 4.02 M/ul (4.3-5.7); RDW 16.5 (10.5-15.0)
[2023-04-05 05:37] LABS: ALBUMIN 2.7 g/dL (3.4-5.0); ALBUMIN/GLOBULIN RATIO 0.61 (1.1-2.4); ANION GAP 16.8 (7-21); BILIRUBIN, TOTAL 0.9 ng/dL (0.2-1.0); BUN/CREATININE RATIO 14.72 (6.0-28.6); CALCIUM 8.4 mg/dL (8.5-10.1); CREATININE, SERUM 1.63 mg/dL (0.70-1.30); POTASSIUM 3.8 mmol/L (3.5-5.1); PROTEIN, TOTAL 7.1 g/dL (6.4-8.2)
--- NOTE | 2023-04-05 05:44 | NUR ---
Patient busy since admit, on light frequently, has slept very little, vss, coginition without change - confused and very forgetful, ambulated to BR with SBA - gait unsteady. NS @ 125 x 8h and will be complete at 0900. patient is drinking plenty of water, as well.
[2023-04-05 06:55] VITALS: BP 126/64
--- NOTE | 2023-04-05 07:32 | NUR ---
RECIEVED REPORT FROM ARISTEO DESOUZA. PT IS FINALLY SLEEPING. NOC RN REPORTS THAT HE WAS ONLY ORIENTED TO "[place]" LAST NIGHT, WAS NOT ABLE TO ANSWER MOST QUESTIONS. ABD IS SLIGHTLY DISTENDED. PT IS VERY RESTLESS AND BUSY.
[2023-04-05 08:58] VITALS: BP 130/65
[2023-04-05 09:16] LABS: INR 1.19 (0.80-1.30); PROTIME 14.5 Sec (11.2-14.2)
--- NOTE | 2023-04-05 13:38 | NUR ---
PT HAD AN ACCIDENT WHILE WALKING AND RETURNED TO HIS ROOM. HE ASKED FOR A SHOWER. THIS RN SET HIM UP FOR A SHOWER. HE USED A SHOWER CHAIR AND WAS INDEPENDENT IN SHOWERING. BED LINENS STRAIGHTENED UP AND DRAW SHEET REPLACED. BATHROOM CLEANED UP. PT RESUMED WALKING IN THE HALLS. HE IS ALERT AND ORIENTED, STEADY ON HIS FEET.
[2023-04-05 13:47] VITALS: BP 131/67
--- NOTE | 2023-04-05 17:36 | NUR ---
PT A&O X4 ALL DAY. ANSWERED QUESTIONS APPROPRIATLY. WALKED LAPS AROUND THE UNIT MULTIPLE TIMES, INDEPENDENTLY. ATE MEALS 100% + SNACKS. VOIDING WELL, FREQUENT BMs. REQUESTED A SHOWER AFTER AN INCONTINENT BM. SHOWERED INDEPENDENTLY WITH A SHOWER CHAIR. BED CHANGED. DENIED PAIN. DENIED RESTLESSNESS/ANXIETY.
[2023-04-05 17:41] VITALS: BP 152/70
--- NOTE | 2023-04-05 19:30 | NUR ---
RECEIVED REPORT FROM DAY SHIFT RN. PATIENT IS UP AMBULATING IN [place]. PATIENT DENIES ANY NEEDS.
[2023-04-05 20:58] VITALS: BP 140/68
--- NOTE | 2023-04-05 21:04 | NUR ---
PATIENT IS RESTING IN RECLINER. VITALS TAKEN AND RECORDED. PATIENT DENIES ANY PAIN. IV FLUSHED AND SL PER ORDER. PATIENT ASSESMENT COMPLETED. PATIENT DENIES ANY PAIN. PM MEDS GIVEN PER ORDER. PATIENT PROVIDED WITH SNCAK AND FRESH ICE WATER. PATIENT DENIES ANY FURTHER NEEDS. CALL LIGHT IN REACH.
--- NOTE | 2023-04-05 22:30 | NUR ---
PATIENT SITTING IN RECLINER READING PAPER. PATIENT DENIES ANY NEEDS. CALL LIGHT IN REACH.
--- NOTE | 2023-04-06 00:06 | NUR ---
PATIENT REQUESTED ICE AND SANDICH BOX. PATIENT GIVEN SANDWICH BOX AND ICE CHIPS. NO FURTHER NEEDS NOTED. CALL LIGHT IN REACH.
--- NOTE | 2023-04-06 02:11 | NUR ---
PATIENT IS RESTING IN RECLINER. VISITORS AT BEDSIDE. PATIENT DENIES ANY NEEDS. CALL LIGHT IN REACH.
--- NOTE | 2023-04-06 04:15 | NUR ---
PATIENT IS RESTING IN RECLINER WATCHING TV. PATIENT DENIES ANY NEEDS. CALL LIGHT IN REACH.
[2023-04-06 04:51] VITALS: BP 152/75
--- NOTE | 2023-04-06 05:00 | NUR ---
PATIENTS VITALS TAKEN AND RECORDED. PATIENTS INTAKE AND OUTPUT RECORDED. IV FLUSHED AND SL PER ORDER. PATIENT DENIES ANY NEEDS. PATIENT UP TO AMBULATE IN HALLWAY.
--- NOTE | 2023-04-06 06:20 | NUR ---
PATIENT UP AMBULATING IN HALLWAY. PATIENT DENIES ANY NEEDS. CALL LIGHT IN REACH.
--- NOTE | 2023-04-06 07:15 | NUR ---
REPORT RECEIVED FROM NIGHT RN, ALL QUESTIONS ANSWERED. PT AMBULATING IN UNIT HALLWAY.
[2023-04-06 08:10] LABS: BASOPHILS 1.1 % (0-2); EOSINOPHILS 2.7 % (0-6); HEMATOCRIT 31.5 % (35.0-50.0); HEMOGLOBIN 11.1 g/dL (12.0-18.0); LYMPHOCYTES 29.9 % (24-44); MCH 30.6 (27-36); MCHC 35.2 g/dl (30-36); MCV 86.9 fl (81-99); MONOCYTES 10.7 % (0-12); NEUTROPHILS 55.6 % (39-80); PLATELET COUNT 55 K/uL (140-440); RBC 3.62 M/ul (4.3-5.7); RDW 16.8 (10.5-15.0)
--- NOTE | 2023-04-06 08:16 | NUR ---
PT RESTING IN BED WITH EYES CLOSED, RESPIRATIONS EVEN AND UNLABORED.
[2023-04-06 08:29] LABS: ALBUMIN 2.6 g/dL (3.4-5.0); ALBUMIN/GLOBULIN RATIO 0.62 (1.1-2.4); ANION GAP 15.3 (7-21); BILIRUBIN, TOTAL 0.9 ng/dL (0.2-1.0); BUN/CREATININE RATIO 13.25 (6.0-28.6); CALCIUM 8.1 mg/dL (8.5-10.1); CREATININE, SERUM 1.66 mg/dL (0.70-1.30); POTASSIUM 4.3 mmol/L (3.5-5.1); PROTEIN, TOTAL 6.8 g/dL (6.4-8.2)
[2023-04-06 09:13] VITALS: BP 152/74
[2023-04-06 10:02] VITALS: BP 134/63
--- NOTE | 2023-04-06 10:12 | NUR ---
MORNING ASSESSMENT COMPLETE. PT ALERT AND ORIENTED. MEDICATIONS GIVEN. DENIES NEEDS AT THIS TIME. CALL LIGHT IN REACH. PT INDEPENDENT IN ROOM
== END 2023-04-06 10:43 | disposition home or self-care (01) ==
LOC: ED 22:01 → MS 22:04
PROVIDERS: Family Medicine; ADMIT Internal Medicine; ATTEND Internal Medicine
DX: B18.2 Chronic viral hepatitis C (principal); G93.41 Metabolic encephalopathy; I10 Essential (primary) hypertension; G89.29 Other chronic pain; Z79.899 Other long term (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
CPT/HCPCS: 36415; 80053; 82140; 85025; 85610; 96374; 96375; 99285-25; G0378; J1885; J2405; J7030

== ENCOUNTER 2023-05-28 23:09 | Inpatient (IN) | payer OTHER ==
[~2023-05-28] VITALS: Ht 190.5 cm; Wt 89.3 kg
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
[2023-05-28 23:49] LABS: BASOPHILS 0.5 % (0-2); EOSINOPHILS 0.8 % (0-6); HEMATOCRIT 40.7 % (35.0-50.0); HEMOGLOBIN 13.9 g/dL (12.0-18.0); LYMPHOCYTES 20.8 % (24-44); MCH 31.3 (27-36); MCHC 34.2 g/dl (30-36); MCV 91.7 fl (81-99); NEUTROPHILS 69.9 % (39-80); PLATELET COUNT 57 K/uL (140-440); RBC 4.44 M/ul (4.3-5.7); RDW 17.5 (10.5-15.0)
[2023-05-29] VITALS (7 sets, daily range): BP systolic 142–160; BP diastolic 81–96
[2023-05-29 00:25] LABS: BILIRUBIN, URINE NEGATIVE (negative); BLOOD/HGB, URINE NEGATIVE (Negative); KETONE, URINE NEGATIVE (Negative); LEUK ESTERASE, URINE NEGATIVE (negative); NITRITE, URINE NEGATIVE (negative)
[2023-05-29 00:39] LABS: AMPHETAMINES, URINE NEGATIVE (NEGATIVE); BARBITURATES, URINE NEGATIVE (NEGATIVE); BENZODIAZEPINE, URINE NEGATIVE (NEGATIVE); BUPRENORPHINE, URINE NEGATIVE (NEGATIVE); CANNABINOID, URINE NEGATIVE (NEGATIVE); COCAINE, URINE NEGATIVE (NEGATIVE); ECSTASY, URINE NEGATIVE (NEGATIVE); FENTANYL, URINE NEGATIVE (NEGATIVE); METHADONE, URINE NEGATIVE (NEGATIVE); OPIATES, URINE NEGATIVE (NEGATIVE); OXYCODONE, URINE NEGATIVE (NEGATIVE); PHENCYCLIDINE, URINE NEGATIVE (NEGATIVE)
[2023-05-29 01:06] LABS: ALBUMIN 3.4 g/dL (3.4-5.0); ALBUMIN/GLOBULIN RATIO 0.71 (1.1-2.4); ANION GAP 18.7 (7-21); BILIRUBIN, TOTAL 1.5 ng/dL (0.2-1.0); BUN/CREATININE RATIO 14.07 (6.0-28.6); CALCIUM 9.9 mg/dL (8.5-10.1); CREATININE, SERUM 1.99 mg/dL (0.70-1.30); POTASSIUM 4.7 mmol/L (3.5-5.1); PROTEIN, TOTAL 8.2 g/dL (6.4-8.2)
[2023-05-29 01:17] LABS: INFLUENZA B NAA NEGATIVE (NEGATIVE); RESPIRATORY SYNCYTIAL VIR NAA NEGATIVE (NEGATIVE)
--- NOTE | 2023-05-29 01:45 | NUR ---
PT ARRIVED TO ROOM 129 VIA STRETCHER WITH ARISTEO ADAMSPOT ROOM SUPERVISOR. PT TRANSFERED TO BED WITHOUT INCIDENT. PT AMS ONLY ALERT TO SELF. PT LETHARGIC, MUMBLING RANDOM NUMBERS. BED IN LOW, LOCKED POSITION WITH BED ALARM ON FOR PT SAFETY. VSS VIA MONITOR AND DIRECT OBSERVATION
--- NOTE | 2023-05-29 03:32 | NUR ---
LACTULOSE ENEMA ADMINISTERED PER ORDER. EXTRA LARGE FORMED BM FOLLOWED. PT SLIGHTLY MORE ALERT. UNABLE TO ANSWER ORIENTATION QUESTIONS BUT ABLE TO SPEAK IN COHERENT SENTENCES. PT VOCALIZING HIS DISLIKE OR ENEMA ADMINISTERED. BED IN LOW, LOCKED POSITION WITH BED ALARM ON OR PT SAETY. PT VSS AND NAD NOTED VIA DIRECT OBSERVATION AND MONITOR.
--- NOTE | 2023-05-29 05:12 | NUR ---
LAB IN ROOM OR AM DRAW.
[2023-05-29 05:29] LABS: BASOPHILS 0.7 % (0-2); EOSINOPHILS 1.3 % (0-6); HEMATOCRIT 31.8 % (35.0-50.0); HEMOGLOBIN 11.2 g/dL (12.0-18.0); LYMPHOCYTES 26.8 % (24-44); MCH 32.1 (27-36); MCHC 35.3 g/dl (30-36); MCV 90.9 fl (81-99); MONOCYTES 9.2 % (0-12); RDW 17.6 (10.5-15.0)
[2023-05-29 05:42] LABS: PLATELET COUNT 39 K/uL (140-440)
--- NOTE | 2023-05-29 05:42 | NUR ---
LAB CALLED WITH CRITICAL PLATELET OF [address] GU NOTIFIED.
[2023-05-29 05:48] LABS: ALBUMIN 2.8 g/dL (3.4-5.0); ALBUMIN/GLOBULIN RATIO 0.76 (1.1-2.4); ANION GAP 15.1 (7-21); BILIRUBIN, TOTAL 1.1 ng/dL (0.2-1.0); BUN/CREATININE RATIO 15.11 (6.0-28.6); CALCIUM 9.1 mg/dL (8.5-10.1); CREATININE, SERUM 1.72 mg/dL (0.70-1.30); POTASSIUM 4.1 mmol/L (3.5-5.1); PROTEIN, TOTAL 6.5 g/dL (6.4-8.2)
--- NOTE | 2023-05-29 06:01 | NUR ---
PT RESTING IN BED, EYES CLOSED. VSS AND NAD NOTED VIA DIRECT OBSERVATION AND CONTINUOUS MONITOR. BED IN LOW, LOCKED POSITION WITH BED ALARM ON OR PT SAETY.
--- NOTE | 2023-05-29 06:37 | NUR ---
PT MORE ALERT. STILL UNABLE TO CORRECTLY ANSWER ORIENTATION QUESTIONS. PT REQUESTED AND PROVIDED ICE CHIPS. PT REQUESTED TO WATCH TV. PTREQUESTED TO WATCH [employer]. PROGRAM LOCATED AND TV IS ON. PT DENIES ADDITIONAL NEEDS.
--- NOTE | 2023-05-29 07:08 | NUR ---
SHIT REPORT GIVEN AND CARE ENDORSED TO ARISTEO CARBONE. ALL QUESTIONS ANSWERED. VSS.
--- NOTE | 2023-05-29 07:36 | NUR ---
REPORT RECEIVED FROM NIGHT RN - PT RESTING IN BED AWAKE. ORIENTED TO SELF ONLY HOWEVER DOES NOT KNOW HIS AGE OR BIRTHDAY. PT REQUESTS ICE CHIPS, STATES HE IS "STARVING FOR BREAKAST". IV SITE PATENT WITH IVF INFUSING. SHERMAN CATH PATENT AND DRAINING CLEAR YELLOW URINE. PT ABLE TO DEMONSTRATE USE OF CALL LIGHT BUTTON.
--- NOTE | 2023-05-29 08:17 | NUR ---
PATIENT SITTING UP IN BED FINISHING BREAKFAST. VITALS AND I&OS CHARTED. CALL LIGHT IN EASY REACH
--- NOTE | 2023-05-29 08:40 | NUR ---
ASSESSMENT COMPLETE - PT REMIANS ONLY ORIENTED TO SELF. ALERT AND SITTING IN BED WITH HOB ELEVATED. 100% OF CLEAR LIQ BREAKFAST CONSUMED WITHOUT DIFFICULTY SWALLOWING. SOME ABD DISCOMFORT WITH PALPATION, PT STATES HE HAS A HERNIA THAT NEEDS SURGERY. OTHERWISE DENIES PAIN. SHERMAN PATENT, VOIDING QS. VS WNL. ASSESMENT CHARTED BY STUDENT RN REVIEWED BY THIS RN AND APPROVED.
--- NOTE | 2023-05-29 09:33 | NUR ---
ORAL ENULOSE DOSE ADMINISTERED WITHOUT DIFFICULTY - PT ENCOURAGED TO CALL IF NEEDING TO HAVE BM. ICE CHIPS PROVIDED.
--- NOTE | 2023-05-29 09:53 | NUR ---
Attempt assessment. Patient confused. States "I don't remember," when asked address, phone number, does not remember living situation either. Attempt to call contact listed in chart, Loni, no answer and no voicemail set up to leave message. Will reattempt later today.
[2023-05-29] MEDS ORDERED: CONSTULOSE10 GM/15 M PO (09:54)
--- NOTE | 2023-05-29 09:57 | NUR ---
THIS RN AND STUDENT IN ROOM ROUNDING WITH MD. WILL REMOVE PT FROM CAD DEVELOPER PER VERBAL ORDER. PLAN TO CONTINUE ORAL LACTULOSE AT THIS TIME, PT REMAINS ORIENTED TO SELF ONLY. DENIES FURTHER NEEDS.
--- NOTE | 2023-05-29 09:58 | NUR ---
MED REC COMPLETE
--- NOTE | 2023-05-29 10:23 | NUR ---
PERSONAL BELONGINGS ITEMIZED BY THIS RN AND STUDENT RN - CHART UPDATED IN PERSOAL BELONGING SECTION OF ADMIT ASSESSMENT. UPDATED ON INFORMATION OBTAINED FROM PT BELONGINGS REGARDING CORRECTION DATES FROM PAPERS FOUND IN [place]. WILL CONTINUE TO OBTAIN NEXT OF KIN CONTACT INFORMATION PT CLEARS.
--- NOTE | 2023-05-29 11:42 | NUR ---
PATIENT IS SEATED UPRIGHT RESTING. STATES HE IS "A LITTLE DISSORIENTED" AND DOES "NOT WANT ANYTHING BAD TO HAPPEN TO HIM". I SPOKE WITH PATIENT ABOUT CARE PLAN AND HIS FAMILY TO REDUCE ANXIETY. PATIENT REQUESTED AND RECEIVED WARM BLANKET AND ICE CHIPS. PATIENT HAD NO FURTHAR REQUESTS. RN NOTIFIED.
--- NOTE | 2023-05-29 12:21 | NUR ---
PT SITTING ELEVATED IN BED EATING LUNCH, ABLE TO FEED SELF. DENIES NEEDS AT THIS TIME. CALL LIGHT IN REACH.
--- NOTE | 2023-05-29 12:35 | NUR ---
UR NOTE: [facility] [place]PATIENT MET AT ADMIT 05/29/23
--- NOTE | 2023-05-29 14:27 | NUR ---
Patient remains confused. Attempt to contact Loni, adjuster electrical contacts, no answer. Patient unable to provide phone number for his mother, Mary Jane Tyler. Attempts to give phone number, but provides the same 4 numbers in different orders.
--- NOTE | 2023-05-29 15:04 | NUR ---
CAME INTO PATIENTS ROOM TO DO HEAD TO TOE. PATIENT WAS SITTING UPRIGHT AND RESTING. PATIENT IS NOW AWARE OF HIS OWN AGE AND SETTING, BUT NOT AWARE OF THE MONTH OR TOWN WE ARE IN. PATIENT HAS BEGUN TALKING ABOUT HIS MEDICATION REGIMINE AND HIS GOALS TO START TAKING HIS MEDS AFTER DISCHARGE. GAVE PATIENT SOCKS AND NEW BLANKET PER REQUEST. PATIENT IS CURRENTLY WATCHING TV AND LAUGHING.
--- NOTE | 2023-05-29 16:54 | NUR ---
THIS RN AND STUDENT IN ROOM TO ASSIST PT TO BSC TO ATTEMPT BOWEL MOVEMENT - LARGE SOFT BROWN FORMED STOOL PRODUCED. PT STEADY ON FEET. PT BACK TO BED AND ASSISTED WITH TEETH BRUSHING AND HAIR WASH. SHERMAN CARE COMPLETE. PT REMAINS ORIENTED TO SELF ONLY. CALL LIGHT IN REACH.
--- NOTE | 2023-05-29 18:27 | NUR ---
LAKEISHA COMPLAINING ABOUT SWOLLEN SCROTUM/ HERNIA. PATIENT WAS PUSHING ON PUBIC REGION. INSTRUCTED THE PATIENT NOT TO TOUCH THE AREA AND EDUCATED ON THE RISK OF PULLING THE SHERMAN OR CAUSING AN INJURY TO THE AREA. PATIENT COMMUNICATED THAT HE UNDERSTOOD AND AGREED. RN NOTIFIED.
--- NOTE | 2023-05-29 19:45 | NUR ---
REPORT FROM TONA Fan RN, PT RESTING IN BED, HAD GOOD SHIFT, COOPERATIVE WITH STAFF AND CARE PLAN
--- NOTE | 2023-05-29 20:07 | NUR ---
PT GAVE PHONE NUMBER FOR HIS MOTHER AMY, THIS RN CALLED AND LEFT VOICE MAIL. AMY CALLED BACK AND WILL BRING IN PATIENTS HOME MEDICATIONS IN THE MORNING, TRANSFERED CALL TO PATIENT, HE IS NOW TALKING ON THE PHONE WITH HER.
--- NOTE | 2023-05-29 20:37 | NUR ---
PATIENT CONCERNED ABOUT HIS WALLET AND MONEY CARDS, HE ALSO SAID HE HAS A CHECK. PATIENT PROVIDED HIS BAGS TO LOOK THROUGH, THIS RN ASSISTED, WE LOCATED ALL HIS ITEMS AND HE PLACED THEM IN HIS WALLET.
--- NOTE | 2023-05-29 21:03 | NUR ---
PT ASKED IF HE COULD GET MORE FOOD, LUNCH BOX PROVIDED WITH APPLESAUCE. ASSISTED WITH SETTING UP. PT SITTING IT 90 DEGREES IN BED. TALKING ABOUT HIS FAMILY AND WILD HORSE RACING
--- NOTE | 2023-05-29 22:30 | NUR ---
PATIENT UP TO BEDSIDE COMMODE TO HAVE BM, HAD SMALL SOFT FORMED BM. TOLERATED ACTIVITY WELL WTIH STANDBY ASSIST. THEN AMBULATED AROUND BED, PATIENT BECAME HAD SMALL TREMORS, HE SAID HE FELT TIRED. PATIENT BACK TO BED, WARM BLANKET PROVIDED.
--- NOTE | 2023-05-29 23:23 | NUR ---
PT HAD SMALL BM IN BED, CLEANED UP. PATIENT BACK TO REST. BED ALARM ON FOR PATIENT SAFETY. CALL LIGHT IN REACH
--- NOTE | 2023-05-30 00:28 | NUR ---
PATIENT CALLED NURSES STATION TO ASK ASSISTANCE UP TO BEDSIDE COMMODE FOR BM. PT TOLERATED ACTIVITY FAIR ONE PERSON STANDBY ASSIST. PATIENT HAD MEDIUM FORM BM. BACK TO BED, BED ALARM ON FOR PATIENT SAFETY, CALL LIGHT IN REACH.
--- NOTE | 2023-05-30 02:21 | NUR ---
PT CONTINUES TO BE AWAKE, HE SAID "I JUST CANT SLEEP" HE ALSO ASKED FOR MORE FOOD, PUDDING CUP PROVIDED. FRESH ICE WATER. PT FORGETFUL, RE-ORIENTS WELL, COOPERATIVE WITH CARE.
--- NOTE | 2023-05-30 02:51 | NUR ---
PATIENT USED CALL LIGHT TO REQUEST ASSISTANCE TO USE THE BEDSIDE COMMODE FOR BM. PT UP TO BEDSIDE COMMONDE TOLERATED ACTIVITY FAIR, ONE PERSON ASSIST, PATIENT PASSED FLATUS, NO BM. PATIENT BACK TO BED, WARM BLANKET PROVIDED, BED ALARM ON FOR PATIENT SAFETY AND CALL LIGHT IN REACH. PATIENT HAS NO OTHER REQUESTS AT THIS TIME.
[2023-05-30 05:21] VITALS: BP 152/88
--- NOTE | 2023-05-30 05:23 | NUR ---
AM LABS DRAWN, PT SITTING UP WATCHING TV, ALERT, WARM BLANKET PROVIDED. NO NEW CONCERNS THIS AM, HE HAS HAD 3 BM SMALL TO MEDIUM OVER SHIFT. HE HAS BEEN ASKING FOR FOOD THROUGHOUT THE SHIFT. NO NAUSEA, HE REPORTS PAIN INTERMITTEN AT SCROTUM DUE TO HERNIA. SHERMAN IN PLACE, PATENT, SHERMAN CARE PROVIDED. PATIENT HAS BEEN COOPERATIVE WITH STAFF AND CARE PLAN.
[2023-05-30 05:34] LABS: EOSINOPHILS 2.1 % (0-6); HEMATOCRIT 32.2 % (35.0-50.0); HEMOGLOBIN 11.4 g/dL (12.0-18.0); LYMPHOCYTES 34.5 % (24-44); MCH 31.9 (27-36); MCHC 35.5 g/dl (30-36); MCV 89.8 fl (81-99); MONOCYTES 9.9 % (0-12); NEUTROPHILS 52.5 % (39-80); RBC 3.59 M/ul (4.3-5.7); RDW 17.4 (10.5-15.0)
[2023-05-30 05:54] LABS: PLATELET COUNT 42 K/uL (140-440)
[2023-05-30 06:06] LABS: ALBUMIN 2.7 g/dL (3.4-5.0); ALBUMIN/GLOBULIN RATIO 0.68 (1.1-2.4); ANION GAP 14.1 (7-21); BILIRUBIN, TOTAL 1.5 ng/dL (0.2-1.0); BUN/CREATININE RATIO 12.08 (6.0-28.6); CREATININE, SERUM 1.82 mg/dL (0.70-1.30); MAGNESIUM 1.5 mg/dL (1.8-2.4); PHOSPHORUS, INORGANIC 3.9 mg/dL (2.5-4.9); POTASSIUM 4.1 mmol/L (3.5-5.1); PROTEIN, TOTAL 6.7 g/dL (6.4-8.2)
--- NOTE | 2023-05-30 07:30 | NUR ---
REPORT RECEIVED FROM DAVID ALBERTS. PT IS SITTING IN BED AWAKE, WATCHING TV, ANSERING QUESTIONS APPROPRIATELY, WAITING ON BREAKFAST.
[2023-05-30 07:41] VITALS: BP 150/89
--- NOTE | 2023-05-30 07:51 | NUR ---
PATIENT AWAKE IN BED, VITALS AND I&OS CHARTED. SHERMAN EMPTIED AND CHARTED. STUDENT BAUDILIO AT BEDSIDE. WASHCLOTH PROVIDED FOR FACE AND HANDS BREAKFAST PROVIDED. ROOM TIDIED, CALL LIGHTIN EASY REACH.
--- NOTE | 2023-05-30 09:46 | NUR ---
AT 0930 MORNING MEDS WERE GIVEN TO PATIENT. MAGNESIUM WAS STARTED PIGGY BACK AT 50 ML/HR. HOME MEDICATION MAVYRET WAS STARTED TODAY, PER ORDER. PATIENT IS SITTING UPRIGHT WATCHNG TV, FINISHING HIS BREAKFAST, AND APPEARS COMFORTABLE.
--- NOTE | 2023-05-30 09:51 | NUR ---
Patient alert and oriented, sitting up in bed. States he is currently living in his pick-up truck. States he has no idea where his pick-up currently is. Does not have any medical equipment, however, he thinks he needs a walker. States he has a card for food from [employer] that needs restarted. Patient states he has previously reached out to [employer]. States he applied to low income housing, but has not recieved housing yet. Encouraged to call and ensure his application is still active and to reapply if needed. Has attempted to stay at the [facility] and was told his medical issues are too complicated for him to stay there. Mother was available to bring his Hep C medications this AM. States Loni is no longer his emergency contact. Would like his mother Mary Jane Tyler to be his emergency contact her number is [phone].
--- NOTE | 2023-05-30 10:07 | NUR ---
ASSESSMENT DONE BY BAUDILIO REVIEW AND AGREED UPON BY THIS RN.
--- NOTE | 2023-05-30 10:42 | NUR ---
Attempt to Contact [facility]ri[facility]'s department medical secretary receptionist regarding pickup. No answer. Message left to please contact case management to assist in locating a patient's pickup truck.
--- NOTE | 2023-05-30 11:45 | NUR ---
PATIENT WHEELED TO SHOWER VIA SHOWER CHAIR. PATIENT ABLE TO PERFORM MOST OF SHOWER ACTIVITY HIMSELF, THIS FUR STYLIST AND 2 STUDENTS ASSISTING WHEN NEEDED. PATIENT FACE SHAVED PER REQUEST. PATIENT BACK TO ROOM FOR LUNCH. CALL LIGHT IN EASY REACH
[2023-05-30 11:51] VITALS: BP 138/83
--- NOTE | 2023-05-30 11:57 | NUR ---
PATIENT SHOWERED, SHAVEN AND GOT HAIR CUT WITH THE HELP OF HEATHER REINOSO AND COORDINATOR OF GENETIC SERVICES ALICIA. PATIENT WAS TRANSPORTED VIA WHEELED SEAT AND WAS ABLE TO STAND WITH MINIMAL ASSISTANCE. PATIENT WAS RETURNED TO ROOM AND BEGAN EATING LUNCH.
--- NOTE | 2023-05-30 12:27 | NUR ---
PT BACK IN BED NOW, HAS EATEN 100% OF LUNCH, DENIES NEEDS AT THIS TIME.
--- NOTE | 2023-05-30 13:06 | NUR ---
UR NOTE [facility] LIVER DISEASE (ISC) INPATIENT 05/30/23 MEETS GL DAY 2
--- NOTE | 2023-05-30 13:13 | NUR ---
PT UP TO VOID, STEADY ON HIS FEET. WAS ABLE TO VOID 200ML INTO HAT. BACK TO BED. PT WANTING TO CALL HIS WOOD FLOOR LAYER, ASSISTED WITH GETTING HIM THE PHONE NUMBER.
--- NOTE | 2023-05-30 14:10 | NUR ---
Information for [employer] and [employer] provided. Encouraged to call to recieve help he needs. Patient immediately picks up room phone to make phone calls.
--- NOTE | 2023-05-30 17:05 | NUR ---
MOM IN TO SEE PT
--- NOTE | 2023-05-30 20:58 | NUR ---
RECEIVED SBAR REPORT FROM ARISTEO CASTAÑEDA. ASSUMED CARE OF PATIENT SUSAN. ALL QUESTIONS AND CONCERNS WERE ADDRESSED. PATIENT DENIES ANY CONCERNS, WANTS, OR NEEDS AT THIS TIME
[2023-05-30 21:00] VITALS: BP 150/91
--- NOTE | 2023-05-30 23:27 | NUR ---
PATIENT SUSAN CONTINUES TO ENDORSE COMFORT AND DENIES ANY NEEDS AT THE MOMENT. HE CONTINUES TO AMBULATE IN THE HALLS WITH MINIMAL DISCOMFORT. HIS GAIT IS STEADY AND SLOW. BI WAS PROVIDED WITH A CUP OF ICE, GRAPES, AND YOGURT.
[2023-05-31 00:09] VITALS: BP 143/78
--- NOTE | 2023-05-31 01:23 | NUR ---
PATIENT BI WAS PROVIDED SOME CANDY FOR COMFORT AND WENT BACK TO RESTING WITH EYES CLOSED. HE APPEARS TO BE COMFORTABLE AND DOES NOT REQUIRE ANY OTHER INTERVENTIONS.
--- NOTE | 2023-05-31 03:33 | NUR ---
PATIENT BI REQUESTED ICE AND STATED THAT HE WOULD LIKE TO WALK AROUND THE UNIT. HE WAS PROVIDED WITH ICE AND AMBULATED APPROX. 100FT AROUND THE UNIT. BI STATES THAT HE IS LOOKING FORWARD TO "GETTING BETTER" AND EXPRESSED A DESIRE TO BE MORE PRESENT IN HIS FAMILY'S LIFE
[2023-05-31 03:54] VITALS: BP 162/100
[2023-05-31 05:19] LABS: BASOPHILS 1.2 % (0-2); HEMATOCRIT 36.4 % (35.0-50.0); HEMOGLOBIN 12.4 g/dL (12.0-18.0); LYMPHOCYTES 31.4 % (24-44); MCH 31.3 (27-36); MCHC 34.1 g/dl (30-36); MCV 91.7 fl (81-99); MONOCYTES 11.2 % (0-12); NEUTROPHILS 54.2 % (39-80); RBC 3.97 M/ul (4.3-5.7); RDW 17.4 (10.5-15.0)
[2023-05-31 05:33] LABS: ALBUMIN 3.1 g/dL (3.4-5.0); ALBUMIN/GLOBULIN RATIO 0.74 (1.1-2.4); ANION GAP 19.3 (7-21); BILIRUBIN, TOTAL 1.4 ng/dL (0.2-1.0); BUN/CREATININE RATIO 11.65 (6.0-28.6); CALCIUM 9.1 mg/dL (8.5-10.1); CREATININE, SERUM 2.06 mg/dL (0.70-1.30); MAGNESIUM 1.8 mg/dL (1.8-2.4); POTASSIUM 4.3 mmol/L (3.5-5.1); PROTEIN, TOTAL 7.3 g/dL (6.4-8.2)
[2023-05-31 05:48] LABS: PLATELET COUNT 49 K/uL (140-440)
--- NOTE | 2023-05-31 06:20 | NUR ---
PATIENT BI WAS NOTED TO BE AWAKE MOST OF THE NIGHT. HE CONTINUED TO DENY ANY NEEDS OTHER THAN HUNGER. WARM BLAKENTS, LIGHTS DIMMED, AND ENVIRONEMENT/TEMPERATURE CONTROL IN PLACE. BI STATED THAT HE "NEVER SLEEPS GOOD" AT NIGHT AND THAT HE SLEPT "MOST OF THE DAY". WE DISCUSSED THE IMPORTANCE OF A HEALTHY SLEEPING REGIMEN IN AN EFFORT TO MAXIMIZE HEALING. NEURO- ALERT AND ORIENTED X4. SLOW GAIT, INDEPENDENT WHILE AMBULATING, DENIES PAIN RESP- O2 SATS ABOVE 97% ON ROOM AIR. BREATH SOUNDS CLEAR. ABLE TO COUGH, DEEP BREATH AND CLEAR AIRWAY CARDIAC- NO EDEMA NOTED, AFEBRILE, SR GI/- 3BM THROUGHOUT SHIFT, VOIDS APPROPRIATELY AND ADEQUATELY. LACTULOSE, REGULAR DIET INT- SEE PREVIOUS ASSESSMENT LDA- L/AC. PATENT AND INTACT
--- NOTE | 2023-05-31 07:30 | NUR ---
REPORT RECEIVED. PATIENT IS AWAKE AND ALERT. C/O MILD INGUINAL HERNIA DISCOMFORT, ALSO C/O FEET SORENESS. PATIENT SAID HE HAS BEEN HAVING THESE PROBLEMS PRIOR HOSIPITAL ADMISSION. HAS BEEN UP AMBULATING IN [place]. IS STABLE ON FEET.
--- NOTE | 2023-05-31 08:00 | NUR ---
SITTING AT BEDSIDE TO EAT BREAKFAST. DENIES NAUSEA.
--- NOTE | 2023-05-31 09:00 | NUR ---
ROUTINE MEDICATIONS GIVEN. DR. GU HERE TO SEE PATIENT AND TALK WITH HIM ABOUT PLAN FOR DISCHARGE.
[2023-05-31] MEDS ORDERED: CONSTULOSE10 GM/15 M PO (09:28)
--- NOTE | 2023-05-31 09:30 | NUR ---
PATIENT HAS BEEN OUT IN HALLWAY SEVERAL TIMES. DISCHARGE ORDERS RECEIVED. SL DC'D WITH CATH INTACT.
--- NOTE | 2023-05-31 09:40 | NUR ---
PATIENT WANTS TO GO FOR A WALK AROUND THE HOSPITAL, THIS RN WALKING WITH PATIENT. PATIENT IS VERY STABLE ON FEET. NO SHORTNESS OF BREATH. COOPERATIVE AND VERY TALKATIVE.
--- NOTE | 2023-05-31 10:05 | NUR ---
RETURN TO ROOM 129. TOLERATED WALK VERY WELL. SITTING AT BEDSIDE TAKING SNACK.
--- NOTE | 2023-05-31 11:23 | NUR ---
DISCHARGE INSTRUCTIONS GIVEN TO PT, VERBAL AND WRITTEN. NEED FOR FOLLOW-UP APPOINTMENT AND LAB WORK DISCUSSED WITH PT WELL MEDICATION CHANGES AND PT IS ABLE TO VERBALIZE THESE INSTRUCTIONS. DETAILED CHECKLIST GIVEN TO PT WELL PRINTED DC MATERIAL AND EDUCATION REGARDING LIVER FAILURE. PT STATES HE WILL GO GET HIS LACTULOSE AT [facility] AND THEN ON FRIDAY CALL DR ABRAHAM.
== END 2023-05-31 11:30 | disposition home or self-care (01) | DRG 442 ==
LOC: ED 23:09 → CCU 05-29 01:15
PROVIDERS: Family Medicine; ADMIT Family Medicine; ATTEND Family Medicine
DX: K76.82 Hepatic encephalopathy (principal); N17.9 Acute kidney failure, unspecified; D69.6 Thrombocytopenia, unspecified; K74.60 Unspecified cirrhosis of liver; K40.90 Unilateral inguinal hernia, without obstruction or gangrene, not specified as recurrent; E83.42 Hypomagnesemia; N18.31 Chronic kidney disease, stage 3a; B19.20 Unspecified viral hepatitis C without hepatic coma; I12.9 Hypertensive chronic kidney disease with stage 1 through stage 4 chronic kidney disease, or unspecified chronic kidney disease; F17.210 Nicotine dependence, cigarettes, uncomplicated; Z98.890 Other specified postprocedural states; Z79.899 Other long term (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; Z79.01 Long term (current) use of anticoagulants; Z11.52 Encounter for screening for COVID-19
CPT/HCPCS: 36415; 80053; 80307; 81003; 82140; 83735; 84100; 85025; 85060; 87502; 97161; 97165; A9270; C9803; G0480; J2405; J3475; J7030; J7121; U0002

== ENCOUNTER 2023-06-09 01:36 | Observation (INO) | payer OTHER ==
[~2023-06-09] VITALS: Ht 190.5 cm; Wt 104.7 kg
--- OUTSIDE RECORDS SUMMARY | 2023-06-09 01:39 | XMS ---
PreManage Notification: STONE DAVIS Security Location Man Events 2 event(s) in the past 18 months Most recent security events: Elopement at [facility] 05/28/2023 14:49 - Patient eloped before treatment completed. - Patient with suicidal and/or homicidal ideations eloped. - Patient eloped with IV in place. Details: Patient LWBS Elopement at [facility] 02/27/2022 14:28 - Patient eloped before treatment completed. - Patient with suicidal and/or homicidal ideations eloped. - Patient eloped with IV in place. Details: PATIENT LWBS CRITERIA MET - 6 ED Visits in 6 Months - [facility] - 2 Visits in 30 Days CARE PROVIDERS EDGAR MALIK Machine Operator General/Airworthiness Safety Inspector 04/08/2023-Vineet RICKETTS PHONE: [phone] SHADY NEVAREZ Emergency Medicine 11/16/2020-Current PHONE: [phone] -Myriam- Dentist: Railroad Conductor [facility] PHONE: [phone] Lashon has no Care Guidelines for this patient. Care History Medical/Surgical 11/16/2020 [facility] - PATIENT HAS AN APT SCHEDULED WITH DR JOHANNA LOPEZ 12/14/20 @ 8:20AM. - PATIENT HAS AN ESTABLISHING CARE APT WITH SHADY NEVAREZ 11/28/20 @ 9: 00AM - PLEASE NOTIFY PATIENT OF HIS UPCOMING APTS CASE MANAGEMENT IS NOT ABLE TO GET A HOLD OF PATIENT WITH THE CONTACT NUMBER LISTED. 11/16/2020 [facility] - Patient is currently established with [facility]. If patient is seen in the ED during business hours. Please contact CHWs at [facility]. Care Recommendation: If this patient has [...] providing care. E.D. VISIT COUNT (12 MO.) 19 [facility] TOTAL 19 NOTE: Visits indicate total known visits. ED/UCC VISIT TRACKING (12 MO.) 06/09/2023 01:36 [facility] [place] TYPE: Emergency COMPLAINT: - WEAKNESS, FEVER 05/28/2023 23:10 [facility] [place] TYPE: Emergency [...] - Nicotine dependence, unspecified, uncomplicated - Other ocean transportation intermediary (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 04/01/2023 15:26 [facility] [place] TYPE: Emergency COMPLAINT: - ABDOMINAL PAIN 03/05/2023 18:49 [facility] [place] [facility] [place] TYPE: Emergency COMPLAINT: - LT LEG SWELLING DIAGNOSES: - Cellulitis of left lower limb - Essential (primary) hypertension - Nicotine dependence, unspecified, uncomplicated - Other usp (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 - Pain in left lower leg 03/03/2023 23:[address] [facility] [place] TYPE: Emergency COMPLAINT: - LEG SWELLING DIAGNOSES: - Essential (primary) hypertension - Nicotine dependence, unspecified, uncomplicated - Other usp (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 - Thrombocytopenia, unspecified - Unilateral inguinal hernia, without obstruction or gangrene, not specified as recurrent - Unspecified viral hepatitis C without hepatic coma 02/22/2023 15:13 [facility] [place] [facility] [place] TYPE: Emergency COMPLAINT: - FEET SWELLING, AMMONIA LEVELS UP, LEGS CRAMPING DIAGNOSES: - Essential (primary) hypertension - Nicotine dependence, unspecified, uncomplicated - Other usp (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 - Other specified soft tissue disorders - Unspecified cirrhosis of liver 01/14/2023 14:35 [facility] [place] [facility] [place] TYPE: Emergency COMPLAINT: - ABD PAIN DIAGNOSES: - Essential (primary) hypertension - Nicotine dependence, unspecified, uncomplicated - Other usp (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 - Unilateral inguinal hernia, without obstruction or gangrene, not specified as recurrent - Upper abdominal pain, unspecified 10/04/2022 21:10 [facility] [place] TYPE: Emergency COMPLAINT: - BLOODY NOSE AND ABD PAIN 09/18/2022 03:[address] [facility] [place] TYPE: Emergency COMPLAINT: - RT LOWER ABD PAIN DIAGNOSES: - Essential (primary) hypertension - Nicotine dependence, unspecified, uncomplicated - Other ocean transportation intermediary (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 - Right lower quadrant pain - Unilateral inguinal hernia, without obstruction or gangrene, not specified as recurrent 09/16/2022 15:57 [facility] [place] TYPE: Emergency COMPLAINT: - ABDOMINAL PAIN DIAGNOSES: - Essential (primary) hypertension - Lower abdominal pain, unspecified - Nicotine dependence, unspecified, uncomplicated - Other ocean transportation intermediary (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 - Unilateral inguinal hernia, [...] unspecified, uncomplicated - Other fatigue - Other usp (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 - Other stimulant abuse, [...] - Nicotine dependence, unspecified, uncomplicated - Other usp (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 - Unilateral inguinal hernia, without obstruction or gangrene, not specified as recurrent 06/17/2022 09:32 [facility] [place] TYPE: Emergency COMPLAINT: - LOWER R QUADRANT PAIN DIAGNOSES: - Essential (primary) hypertension - Nicotine dependence, unspecified, uncomplicated - Right lower quadrant pain - Unilateral inguinal hernia, without obstruction or gangrene, not specified as recurrent INPATIENT VISIT TRACKING (12 MO.) 05/29/2023 01:15 [facility] [place] TYPE: Critical Care COMPLAINT: - HEPATIC ENCEPHALOPATHY DIAGNOSES: - Acute kidney failure, unspecified - Acute kidney failure, unspecified - Chronic kidney disease, stage 3a - Chronic kidney disease, stage 3a - Chronic kidney disease, unspecified - Encounter for screening for COVID-19 - Encounter for screening for COVID-19 - Hepatic encephalopathy - Hypertensive chronic kidney disease with stage 1 through stage 4 chronic kidney disease, or unspecified chronic kidney disease - Hypertensive chronic kidney disease with stage 1 through stage 4 chronic kidney disease, or unspecified chronic kidney disease - Hypomagnesemia - Hypomagnesemia - alf (current) use of anticoagulants - ocean transportation intermediary (current) use of anticoagulants - Nicotine dependence, cigarettes, uncomplicated - Nicotine dependence, cigarettes, uncomplicated - Other ocean transportation intermediary (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 - Other ocean transportation intermediary (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 - Other specified postprocedural states - Other specified postprocedural states - Thrombocytopenia, unspecified - Thrombocytopenia, unspecified - Unilateral inguinal hernia, without obstruction or gangrene, not specified as recurrent - Unilateral inguinal hernia, without obstruction or gangrene, not specified as recurrent - Unspecified cirrhosis of liver - Unspecified cirrhosis of liver - Unspecified viral hepatitis C without hepatic coma - Unspecified viral hepatitis C without hepatic coma 04/04/2023 22:04 [facility] [place] TYPE: Observation COMPLAINT: - HEPATIC ENCEPHALOPATHY DIAGNOSES: - Chronic viral hepatitis C - Essential (primary) hypertension - Metabolic encephalopathy - Other chronic pain - Other usp (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 04/04/2023 10:16 [facility] [...] tract infection, site not specified 04/01/2023 15:27 [facility] [place] TYPE: Observation [...] Portal hypertension - Unspecified cirrhosis of liver [email or web address]
[2023-06-09 02:06] LABS: BASOPHILS 0.8 % (0-2); EOSINOPHILS 2.1 % (0-6); HEMATOCRIT 27.3 % (35.0-50.0); HEMOGLOBIN 9.5 g/dL (12.0-18.0); LYMPHOCYTES 26.3 % (24-44); MCH 32.2 (27-36); MCHC 34.8 g/dl (30-36); MCV 92.4 fl (81-99); NEUTROPHILS 62.8 % (39-80); PLATELET COUNT 55 K/uL (140-440); RBC 2.95 M/ul (4.3-5.7)
[2023-06-09 02:19] LABS: INR 1.13 (0.80-1.30)
[2023-06-09 02:36] LABS: LACTIC ACID, BLOOD 1.6 mmol/L (0.4-2.0)
[2023-06-09 02:42] LABS: INFLUENZA B NAA NEGATIVE (NEGATIVE); RESPIRATORY SYNCYTIAL VIR NAA NEGATIVE (NEGATIVE)
[2023-06-09 02:47] LABS: BUN/CREATININE RATIO 10.76 (6.0-28.6); CALCIUM 7.9 mg/dL (8.5-10.1); CHLORIDE 109 mmol/L (98-107); GLOMERULAR FILTRATION RATE,EST 67 mL/min (>60); POTASSIUM 3.6 mmol/L (3.5-5.1); UREA NITROGEN 14 mg/dL (7-18)
[2023-06-09 02:48] LABS: MAGNESIUM 1.6 mg/dL (1.8-2.4)
[2023-06-09 02:54] LABS: ALBUMIN 2.4 g/dL (3.4-5.0); ALBUMIN/GLOBULIN RATIO 0.65 (1.1-2.4); ALT (SGPT) 43 U/L (14-59); ANION GAP 12.6 (7-21); AST (SGOT) 52 U/L (15-37); BILIRUBIN, TOTAL 0.8 ng/dL (0.2-1.0); CARBON DIOXIDE 22 mmol/L (21-32); PROTEIN, TOTAL 6.1 g/dL (6.4-8.2)
[2023-06-09 02:55] LABS: ALCOHOL, MEDICAL <3 ng/dL (<3); ALKALINE PHOSPHATASE 71 U/L (46-116); CREATINE KINASE 258 U/L (39-308)
[2023-06-09 02:57] LABS: TSH, 3RD GENERATION 1.661 uIU/mL (0.358-3.740)
[2023-06-09 04:44] LABS: BILIRUBIN, URINE NEGATIVE (negative); BLOOD/HGB, URINE NEGATIVE (Negative); KETONE, URINE NEGATIVE (Negative); LEUK ESTERASE, URINE NEGATIVE (negative); NITRITE, URINE NEGATIVE (negative)
[2023-06-09 04:54] VITALS: BP 123/64
[2023-06-09 05:01] LABS: AMPHETAMINES, URINE NEGATIVE (NEGATIVE); BARBITURATES, URINE NEGATIVE (NEGATIVE); BENZODIAZEPINE, URINE NEGATIVE (NEGATIVE); BUPRENORPHINE, URINE NEGATIVE (NEGATIVE); CANNABINOID, URINE NEGATIVE (NEGATIVE); COCAINE, URINE NEGATIVE (NEGATIVE); ECSTASY, URINE NEGATIVE (NEGATIVE); METHADONE, URINE NEGATIVE (NEGATIVE); OPIATES, URINE NEGATIVE (NEGATIVE); OXYCODONE, URINE NEGATIVE (NEGATIVE); PHENCYCLIDINE, URINE NEGATIVE (NEGATIVE)
--- NOTE | 2023-06-09 05:17 | NUR ---
PT TO FLOOR WITH ED RN VIA STRETCHER. PT ABLE TO TRANSFER SELF TO BED. REPORT RECEIVED. ORDERS RECEIVED. PT ALERT AND ORIENTED. DROWSY. ADMISSION ASSESSMENT COMPLETE. TELE #8 PLACED. PT ORIENTED TO ROOM AND NURSE CALL LIGHT. DENIES QUESTIONS OR CONCERNS AT THIS TIME, WISHES TO SLEEP. BED ALARM FOR SAFETY.
[2023-06-09 07:03] LABS: FENTANYL, URINE NEGATIVE (NEGATIVE)
--- NOTE | 2023-06-09 07:31 | NUR ---
RECIEVED SHIFT REPORT FROM NURSE. PT IS CURRENTLY RESTING AT THIS TIME. EVENA ND UNLABORED BREATHING NOTED. NO OTHER CARES NEEDED AT THIS TIME. CALL LIGHT WITHIN REACH
--- NOTE | 2023-06-09 08:22 | NUR ---
PT IS CURRENTLY IN BED WATCHING TV. NO ABNORMAL FINDINGS. PT RECIEVED [facility] TO HELP WITH EDEMA IN NIRALI;ATERAL LEGS. PT SAID THAT AFTYER IT WAS PLACED THAT HE FELT BETTER. DR ECKERT CONFIRMED ORDER FOR IBIS HOSE. PT HAS PAIN OF 7 DUE TO HERNIA. NO OTHER CARE AT THIS MICHA ARE NEEDED OR REQUESTED. CALL LIGHT WITHIN REACH
--- NOTE | 2023-06-09 09:46 | NUR ---
PT SHOWERING. TELE REMOVED PER
[2023-06-09 10:55] VITALS: BP 126/66
--- NOTE | 2023-06-09 10:55 | NUR ---
INTO SEE PATIENT. PATIENT STATES HE IS STAYING AT [facility] AT THIS TIME. FROM PREVIOUS VISITS PATIENT HAD BEEN LIVING WITH HIS MOTHER IN THE PAST, BUT HAD TO MOVE OUT HIS STEP FATHER HAS DEMENTIA AND THEY DO NOT GET ALONG. PATIENT DENIES USE OF ANY DME AT THIS TIME. HE STATES HE IS FEELING BETTER THEN HE DID YESTERDAY, BUT STILL NOT FELLING WELL. PATIENT HAS BEEN ATTEMPTING TO FOLLOW UP WITH DR. ABRAHAM, BUT HAS BEEN ILL. PATIENT STATING HE NEEDS A COPY OF HIS [employer] CARD FOR THE PHARMCAY. PATIENT STATES HE PLANS TO RETURN TO THE [facility] AT DISCHARGE. HE DOES HAVE TRANSPORTATION. ADVISED I WILL PROVIDE HIM WITH HIS [employer] INFO, NUMBER TO [facility] FOR FURTHER ASSISTANCE AND NAME OF SURGEON REFERRED TO BY DR. ANNE FOR HIS HERNIA REPAIR. NO FURTHER NEEDS FROM THE PATIENT AT THIS TIME.
--- NOTE | 2023-06-09 11:10 | NUR ---
PT TOOK A SHOWER ON HIS OWN WITHOUT INFORMING STAFF. PT IS CURRENTLY IN BED WATCHING TV. NO OTHER CARES NEEDED AT THIS TIME OR REQUESTED. CALL LIGHT WITHIN REACH
--- NOTE | 2023-06-09 11:14 | NUR ---
PT HAD IBIS HOSE PUT ON BY BOOSTER ASSEMBLER AND BARIATRIC SOCKS.
--- NOTE | 2023-06-09 13:15 | NUR ---
PT UP WALKING THE MICHEL INDEPENDENTLY.
[2023-06-09 13:40] VITALS: BP 136/68
--- NOTE | 2023-06-09 14:55 | NUR ---
UR NOTE MCG LIVER DISEASE: OBSERVATION CARE (ISC) 06/09/23 MET AT ADMIT
--- NOTE | 2023-06-09 15:00 | NUR ---
PT IS CURRENTLY WALKING THE HALLS AND ALSO WALKING IN HIS ROOM. NO SIGNS OF DIZZINESS OR UNSTEADY GAIT AT THIS TIME. WILL CONTINUE TO MONITOR.
--- NOTE | 2023-06-09 15:20 | NUR ---
PATIENT GIVEN AFTERNOON DOSE OF LACTULOSE. PATIENT REPORTS THAT HE HAS HAD X4 BM TODAY. PATIENT IS UP AMBULATING AROUND IN ROOM.
[2023-06-09 17:44] VITALS: BP 163/76
--- NOTE | 2023-06-09 17:50 | NUR ---
PT CALLED TO USE RESTROOM. INDEPENDENT TO BATHROOM. DINNER TRAY SET UP FOR HIM. CALL LIGHT IN REACH. BED ALARM ON.
--- NOTE | 2023-06-09 18:04 | NUR ---
MED REC COMPLETE
--- NOTE | 2023-06-09 19:27 | NUR ---
REPORT RECEIVED FROM DAY SHIFT RN. PT LYING IN BED RESTING WITH EYES CLOSED. RESPIRATIONS EVEN. CALL LIGHT IN REACH. BED ALARM FOR SAFETY.
[2023-06-09 19:46] VITALS: BP 138/66
--- NOTE | 2023-06-09 19:52 | NUR ---
Patient up to restroom; patient reported x1 loose stool he flushed. Patient back to bed, alarm in place. Vital signs taken at this time. Snack provided to patient per his request. Call light within reach-encouraged patient to call for any needs.
--- NOTE | 2023-06-09 20:09 | NUR ---
EVENING ASSESSMENT COMPLETE. SCHEDULED MEDS ADMIN PER EMAR. PT DENIES PAIN OR NAUSEA. SITTING UP IN BED EATING A SANDWICH. BLE EDEMA NOTED. IBIS HOSE IN PLACE. IV IN RIGHT FOREARM FLUSHED WITH NS PER PROTOCOL. BRISK BLOOD RETURN NOTED. PT DENIES QUESTIONS OR CONCERNS. CALL LIGHT IN REACH. BED ALARM FOR SAFETY.
--- NOTE | 2023-06-09 22:41 | NUR ---
PT BY DOOR LOOKING INTO HALLWAY, CHECKED ON PT, HE WANTS TO GO TO THE VENDING MACHINE TO GET A BUTTERFINGER, HAD COINS IN HIS HAND. EDUCATED HE CAN'T LEAVE THE FLOOR, BUT OFFERED CHELSEY CRACKERS AND PEANUT BUTTER WHICH HE GLADLY ACCEPTED, WELL JAROD POP; CUP OF ICE.
[2023-06-10 01:52] VITALS: BP 134/64
--- NOTE | 2023-06-10 01:53 | NUR ---
PT RESTING WITH EYES CLOSED. AWAKENS EASILY. VS AND I&O OBTAINED. ASSESSMENT UNCHANGED. CALL LIGHT IN REACH. BED ALARM FOR SAFETY.
--- NOTE | 2023-06-10 04:10 | NUR ---
CALL LIGHT ANSWERED. PT UP TO BR TO VOID WITH MINIMAL SBA. GAIT STEADY. BACK TO BED, FRITZ WELL. SODA PROVIDED PER REQUEST. NO FURTHER NEEDS.
[2023-06-10 05:06] VITALS: BP 124/56
--- NOTE | 2023-06-10 05:10 | NUR ---
V/S AND I&O'S TAKEN AND CHARTED. LAB WAS IN THE ROOM. PATIENT APPEARS DROWSY BUT ANSWERS WHEN QUESTIONED. ICE CHIPS AND ICE WATER PROVIDED. DENIES FURTHER NEEDS OR CONCERNS AT THIS TIME. BED ALARM REMAINS ON FOR SAFETY.
[2023-06-10 05:22] LABS: BASOPHILS 0.9 % (0-2); HEMATOCRIT 27.1 % (35.0-50.0); HEMOGLOBIN 9.6 g/dL (12.0-18.0); LYMPHOCYTES 26.2 % (24-44); MCH 32.4 (27-36); MCHC 35.3 g/dl (30-36); MCV 91.8 fl (81-99); MONOCYTES 7.8 % (0-12); NEUTROPHILS 63.1 % (39-80); PLATELET COUNT 56 K/uL (140-440); RBC 2.95 M/ul (4.3-5.7); RDW 16.6 (10.5-15.0)
[2023-06-10 05:35] LABS: ALBUMIN 2.3 g/dL (3.4-5.0); ALBUMIN/GLOBULIN RATIO 0.61 (1.1-2.4); ANION GAP 13.5 (7-21); BILIRUBIN, TOTAL 0.7 ng/dL (0.2-1.0); BUN/CREATININE RATIO 9.87 (6.0-28.6); CREATININE, SERUM 1.62 mg/dL (0.70-1.30); MAGNESIUM 1.5 mg/dL (1.8-2.4); POTASSIUM 3.5 mmol/L (3.5-5.1); PROTEIN, TOTAL 6.1 g/dL (6.4-8.2)
--- NOTE | 2023-06-10 06:22 | EKG ---
[facility] [address] [facility] [place] [address] Signed Normal sinus rhythm Left posterior fascicular block Cannot rule out Inferior infarct , age undetermined Abnormal ECG When compared with ECG of 01-APR-2023 16:23, Vent. rate has increased BY 36 BPM QRS voltage has decreased Nonspecific T wave abnormality now evident in Inferior leads T wave inversion now evident in Lateral leads Confirmed by KARY ECKERT MD ([id number]) on 06/10/2023 6:22:48 AM Electronically Signed By: KARY ECKERT 06/10/23 0622 PATIENT NAME: STONE DAVIS Electrocardiogram DATE OF : 72 PHYSICIAN: KARY ECKERT REPORT #: [id number] REPORT IS CONFIDENTIAL AND NOT TO BE RELEASED WITHOUT AUTHORIZATION
--- NOTE | 2023-06-10 07:15 | NUR ---
REPORT RECEIVED FROM ARISTEO SANDHU. PT LAYING ON BED WTIH EYES CLOSED. RR EVEN AND UNLABORED.
--- NOTE | 2023-06-10 08:10 | NUR ---
PT SITTING UP IN BED EATING BREAKFAST. JUST GOT BACK IN BED AFTER HAVING ANOTHER BM. ASKED FOR MORE FOOD. HELD LACTULOSE PER PT VERY THANKFUL
[2023-06-10] MEDS ORDERED: FUROSEMIDE40 MG PO (10:03)
[2023-06-10] MEDS ORDERED: SPIRONOLACTONE100 MG PO (10:04)
--- NOTE | 2023-06-10 10:15 | NUR ---
In and spoke with patient. He plans on dc today. He would like a care ride, but states his "buddies were partying" in his motel room and he may not have a room. I asked if he would like to be discharged to the [facility]. Pt states he cannot go there as there was an issue in the past. He states his friend works at [employer] and he will go there to see if he still has a room. He denies further needs and plans to dc today.
[2023-06-10] MEDS ORDERED: CONSTULOSE10 GM/15 M PO (10:24)
--- NOTE | 2023-06-10 10:27 | NUR ---
PT APPEARED TO BE SLEEPING AND DID NOT RESPOND TO MY KNOCK. DID NOT AWAKEN. LEFT GUIDEPOST WITH CONTACT CARD AND PRAYER CARD. PRAYED SILENTLY FOR HEALTH OF BODY AND SPIRIT.
[2023-06-10 11:08] VITALS: BP 122/56
== END 2023-06-10 11:05 | disposition home or self-care (01) ==
LOC: ED 01:36 → MS 01:37
PROVIDERS: Internal Medicine; ADMIT Family Medicine; ATTEND Family Medicine
DX: K76.82 Hepatic encephalopathy (principal); K74.60 Unspecified cirrhosis of liver; B19.20 Unspecified viral hepatitis C without hepatic coma; E83.42 Hypomagnesemia; D64.9 Anemia, unspecified; Z20.822 Contact with and (suspected) exposure to COVID-19; D63.8 Anemia in other chronic diseases classified elsewhere
CPT/HCPCS: 36415; 71045; 80053; 80307; 81003; 82140; 82553; 83605; 83735; 83880; 84443; 84484; 85025; 85610; 87502; 93005; 93010; A9270; C9803; G0480; J0612; J0696; J1940; U0002